=== PATIENT | male | born 1930 | race Caucasian/White ===

== ENCOUNTER 2019-08-05 11:12 | Inpatient (IN) | payer MEDICARE, OTHER ==
[~2019-08-05] VITALS: Ht 193 cm; Wt 113.1 kg
[~2019-08-05 11:12] MED LIST: PRAVASTATIN SOD20 MG PO; Z.0.AMLODIPINE BESY1 PO; Z.0.GLIPIZIDE XL10 M PO; Z.1.LISINOPRIL-HCT1 PO; Z.1.METFORMIN HCL100 PO; Z.3.CENTRUM SILVER1 PO
[2019-08-05 11:58] VITALS: BP 142/86
[2019-08-05 12:00] VITALS: BP 142/86
[2019-08-05 12:06] VITALS: BP 142/84
[2019-08-05] MEDS ORDERED: FINASTERIDE5 MG PO (12:28)
[2019-08-05] MEDS ORDERED: CARVEDILOL3.125 MG PO (12:28)
[2019-08-05] MEDS ORDERED: FUROSEMIDE40 MG PO (12:28)
[2019-08-05] MEDS ORDERED: ASPIRIN81 MG PO (12:28)
[2019-08-05] MEDS ORDERED: FLOMAX0.4 MG PO (12:28)
[2019-08-05] MEDS ORDERED: PIOGLITAZONE HC45 MG PO (12:28)
[2019-08-05] MEDS ORDERED: KLOR-CON 1010 MEQ (12:28)
[2019-08-05 12:53] LABS: BASOPHILS % 0.4 % (0.0-1.0); EOSINOPHILS # (AUTO) 0.2 (0.0-0.4); EOSINOPHILS % 2.3 % (0.0-6.0); HEMOGLOBIN 15.6 g/dL (14.0-18.0); LYMPHOCYTES # (AUTO) 1.6 (1.0-3.2); LYMPHOCYTES % 19.2 % (18.0-39.1); MEAN CORPUSCULAR HEMOGLOBIN 31.3 pg (28-32); MEAN CORPUSCULAR HGB CONC 33.9 g/dL (31-35); MEAN CORPUSCULAR VOLUME 92.2 fL (81-99); MONOCYTES # (AUTO) 0.9 (0.2-0.8); MONOCYTES % 11.3 % (4.4-11.3); NEUTROPHILS # (AUTO) 5.5 (2.1-6.9); NEUTROPHILS % 66.3 % (38.7-80.0); PLATELET COUNT 223 x10e3/uL (140-360); RED BLOOD COUNT 4.99 x10e6/uL (4.3-5.7); RED CELL DISTRIBUTION WIDTH 13.4 % (11.7-14.4)
[2019-08-05 13:16] LABS: ALANINE AMINOTRANSFERASE 15 IU/L (0-55); ALBUMIN 3.3 g/dL (3.5-5.0); ALBUMIN/GLOBULIN RATIO 1.3 (0.8-2.0); ALKALINE PHOSPHATASE 83 IU/L (40-150); ANION GAP 15.1 mmol/L (8-16); BLOOD UREA NITROGEN 23 mg/dL (7-26); BUN/CREATININE RATIO 22 (6-25); CALCIUM 9.5 mg/dL (8.4-10.2); CARBON DIOXIDE 27 mmol/L (22-29); CHLORIDE 101 mmol/L (98-107); CREATININE, SERUM 1.05 mg/dL (0.72-1.25); EST GLOMERULAR FILTRATION RATE > 60 ML/MIN (60-); GLUCOSE 122 mg/dL (74-118); POTASSIUM 4.1 mmol/L (3.5-5.1); SODIUM 139 mmol/L (136-145)
[2019-08-05 16:07] VITALS: BP 122/57
[2019-08-05] MEDS ORDERED: HYDRALAZINE HCL 20 MG/ML VIAL IV PRN (16:15)
[2019-08-05] MEDS ORDERED: POLYETHYLENE GLYCOL 3350 17 GM PACK PO PRN (16:15)
[2019-08-05] MEDS ORDERED: DEXTROSE 50% SYRINGE 50 ML IV PRN (16:30)
[2019-08-05] MEDS ORDERED: CARVEDILOL 3.125 MG TAB PO SCH (17:00)
--- NOTE | 2019-08-05 17:07 | Diagnostic Imaging Report ---
EXAMINATION: CHEST 2 VIEWS INDICATION: Shortness of breath COMPARISON: Chest radiograph of 09/06/2009 FINDINGS: LINES/TUBES:Left chest pacemaker with leads terminating in the right atrium and right ventricle. EKG leads overlie the chest. LUNGS:The lungs are mildly hyperinflated. Patchy opacity at the right lung base. PLEURA:Moderate layering right pleural effusion. No pneumothorax. MEDIASTINUM:Cardiomegaly, increased since 2008. Atherosclerotic calcifications of the thoracic aorta. BONES/SOFT TISSUES:No acute osseous injury. Degenerative changes of the visualized spine. ABDOMEN:No free air under the diaphragm. IMPRESSION: Moderate layering right pleural effusion. Patchy opacity at the right lung base likely represents associated subsegmental atelectasis. Cardiomegaly, increased from 2008. Signed by: Barrera Carey MD on 08/05/2019 5:04 PM
[2019-08-05] MEDS: FAMOTIDINE 20 MG TAB PO SCH (17:10)
[2019-08-05] MEDS: METFORMIN HCL 500 MG TAB PO SCH (17:10)
[2019-08-05] MEDS: GLIPIZIDE 5 MG TAB PO SCH (17:10)
[2019-08-05] MEDS: INSULIN REGULAR, HUMAN 100 UNIT/1 ML 3ML VIAL SQ SCH ×2 (17:10→20:26)
[2019-08-05] MEDS: CARVEDILOL 3.125 MG TAB PO SCH (17:10)
[2019-08-05] MEDS: DOCUSATE SODIUM 100 MG CAP PO SCH (17:10)
[2019-08-05] MEDS ORDERED: ACETAMINOPHEN 325 MG TAB PO PRN (17:30)
--- NOTE | 2019-08-05 18:08 | Consultation ---
DATE OF CONSULTATION: Cardiology Consultation CHIEF COMPLAINT: The patient is an 88-year-old with shortness of breath. HISTORY OF PRESENT ILLNESS: The patient is an 88-year-old with known congestive heart failure, came to the office with worsening dyspnea and fluid overload. The patient has had no chest pain. Arrangements were made for the patient to be admitted for diuresis. PAST MEDICAL HISTORY: Significant for: 1. Dual chamber permanent pacemaker placement for sick sinus syndrome. 2. Known history of atrial fibrillation intermittently. 3. Ejection fraction of 25% on the echocardiogram. 4. Lexiscan nuclear stress test demonstrating an ejection fraction of 20% with fixed defects. MEDICATIONS: At home include glipizide, metformin, pravastatin, carvedilol, amlodipine, lisinopril, and furosemide. SOCIAL HISTORY: The patient does not drink and does not smoke. FAMILY HISTORY: There is a known family history of heart disease and hypertension. PHYSICAL EXAMINATION: GENERAL: The patient is an older male, in no obvious distress. VITAL SIGNS: Included a temperature of 98.8, blood pressure of 140/70, and pulse is 76. HEAD, EARS, EYES, NOSE, AND THROAT: The patient's cranium was normocephalic and atraumatic. Extraocular muscles were intact. Sclerae were anicteric. Pupils were equal, round, and reactive to light. There is no pallor or cyanosis of the oral mucosa. There is no erythema or edema of the throat. NECK: Supple. No jugular venous distention. CHEST: Demonstrated rales bilaterally. CARDIAC: Demonstrated normal S1 and S2 with a short 2/6 systolic murmur. ABDOMEN: Demonstrated good bowel sounds. No tenderness and no masses. EXTREMITIES: There was 2 to 3+ edema bilaterally. NEUROLOGIC: The patient was alert and oriented x3. Cranial nerves II through XII were intact. DIAGNOSTIC DATA: The patient's EKG demonstrated ventricular pacing. IMPRESSION: The patient is an 88-year-old with uibso-jb-uatnrdd systolic heart failure. RECOMMENDATIONS: As follows: 1. The patient will need to be diuresed with IV Lasix. 2. The patient will be continued on ALVARO inhibitors and beta blockers. 3. Repeat echocardiogram has been ordered. 4. An EP consult has been requested to upgrade the patient's dual-chamber pacemaker to a defibrillator. MD BRIAN Smyth/ТАТЬЯНА /[id number] cc: Ramón Boles MD
[2019-08-05 19:00] VITALS: BP 158/72
[2019-08-05 20:00] VITALS: BP 158/72
[2019-08-05] MEDS: FUROSEMIDE INJ 10 MG/ML 4 ML VIAL IV SCH (20:25)
[2019-08-05] MEDS: PRAVASTATIN 20 MG TAB PO SCH (20:26)
[2019-08-05] MEDS ORDERED: PIOGLITAZONE HCL 15 MG TAB PO SCH (21:00)
[2019-08-05] MEDS ORDERED: PIOGLITAZONE HCL 45 MG TAB PO SCH (21:00)
--- NOTE | 2019-08-05 21:45 | NUR ---
PATIENT REFUSED CPAP AT THIS TIME. CONNECTED TO 4 LITERS OXYGEN VIA NASAL CANULA, SPO2 MAINTAINED 97%. WILL CONTINUE TO MONITOR.
[2019-08-06] VITALS (7 sets, daily range): BP systolic 119–150; BP diastolic 58–67
[2019-08-06 05:48] LABS: BASOPHILS % 0.3 % (0.0-1.0); EOSINOPHILS # (AUTO) 0.2 (0.0-0.4); EOSINOPHILS % 3.4 % (0.0-6.0); HEMATOCRIT 41.7 % (38.2-49.6); HEMOGLOBIN 13.8 g/dL (14.0-18.0); LYMPHOCYTES # (AUTO) 1.4 (1.0-3.2); LYMPHOCYTES % 20.2 % (18.0-39.1); MEAN CORPUSCULAR HEMOGLOBIN 30.5 pg (28-32); MEAN CORPUSCULAR HGB CONC 33.1 g/dL (31-35); MEAN CORPUSCULAR VOLUME 92.3 fL (81-99); MONOCYTES # (AUTO) 0.7 (0.2-0.8); MONOCYTES % 10.7 % (4.4-11.3); NEUTROPHILS # (AUTO) 4.5 (2.1-6.9); NEUTROPHILS % 65.1 % (38.7-80.0); PLATELET COUNT 184 x10e3/uL (140-360); RED BLOOD COUNT 4.52 x10e6/uL (4.3-5.7); RED CELL DISTRIBUTION WIDTH 13.2 % (11.7-14.4)
[2019-08-06 06:06] LABS: ANION GAP 12.7 mmol/L (8-16); BLOOD UREA NITROGEN 23 mg/dL (7-26); BUN/CREATININE RATIO 23 (6-25); CALCIUM 8.7 mg/dL (8.4-10.2); CARBON DIOXIDE 29 mmol/L (22-29); CHLORIDE 101 mmol/L (98-107); CHOL/HDL RATIO 3.7 (3.9-4.7); CHOLESTEROL 121 MD/DL (0-199); CREATININE, SERUM 0.98 mg/dL (0.72-1.25); EST GLOMERULAR FILTRATION RATE > 60 ML/MIN (60-); GLUCOSE 133 mg/dL (74-118); HDL CHOLESTEROL 33 MG/DL (40-60); LDL CHOLESTEROL 76 MG/DL (60-130); MAGNESIUM 1.8 MG/DL (1.3-2.1); PHOSPHORUS 3.7 MG/DL (2.3-4.7); POTASSIUM 3.7 mmol/L (3.5-5.1); SODIUM 139 mmol/L (136-145); TRIGLYCERIDES 61 MG/DL (0-149)
[2019-08-06 06:17] LABS: B-TYPE NATRIURETIC PEPTIDE2 859.6 pg/mL (0-100)
--- NOTE | 2019-08-06 07:01 | NUR ---
Report given to oncoming nurse Vandana, walking round done.
[2019-08-06] MEDS: FAMOTIDINE 20 MG TAB PO SCH ×2 (08:00→16:40)
[2019-08-06] MEDS: CARVEDILOL 3.125 MG TAB PO SCH ×2 (08:00→16:40)
[2019-08-06] MEDS: AMLODIPINE BESYLATE 10 MG TAB PO SCH (08:00)
[2019-08-06] MEDS: MULTIVITAMINS/MINERALS TAB PO SCH (08:00)
[2019-08-06] MEDS: DOCUSATE SODIUM 100 MG CAP PO SCH ×2 (08:00→16:40)
[2019-08-06] MEDS: LISINOPRIL 20 MG TAB PO SCH (08:00)
[2019-08-06] MEDS: HYDROCHLOROTHIAZIDE 25 MG TAB PO SCH (08:00)
[2019-08-06] MEDS: TAMSULOSIN HCL 0.4 MG CAP PO SCH (08:00)
[2019-08-06] MEDS: METFORMIN HCL 500 MG TAB PO SCH ×2 (08:00→16:40)
[2019-08-06] MEDS: GLIPIZIDE 5 MG TAB PO SCH ×2 (08:00→16:40)
[2019-08-06] MEDS: INSULIN REGULAR, HUMAN 100 UNIT/1 ML 3ML VIAL SQ SCH ×4 (08:00→21:00)
[2019-08-06] MEDS: FINASTERIDE 5 MG TAB PO SCH (08:00)
[2019-08-06] MEDS: ASPIRIN 81 MG CHEW TAB PO SCH (08:00)
[2019-08-06] MEDS: FUROSEMIDE INJ 10 MG/ML 4 ML VIAL IV SCH ×2 (08:30→21:14)
[2019-08-06] MEDS ORDERED: POTASSIUM CHLORIDE 10MEQ EA PO SCH ×2 (09:00)
[2019-08-06] MEDS ORDERED: FUROSEMIDE 40 MG TAB PO SCH (09:00)
--- NOTE | 2019-08-06 14:42 | NUR ---
Nutrition Screen Note RD Recommendation for Physician: - Continue diet as ordered Plan of Care: RD following, monitoring for tolerance and adequacy, diet education Nutrition reason for involvement: Diagnosis Primary Diagnose(s): CHF PMH: CHF, DM Ht: 76in Wt: 270lb BMI: 32.9kg/m2 IBW: 202lb +/- 10% RD Assessment: (08/06) Chart reviewed. Labs and meds reviewed. 88yo M, who was admitted for CHF. Visited pt in the room per diagnosis. Pt reported good appetite with 100% observed lunch intake. No GI complains reported. Weight has been stable. Pt denied any chewing or swallowing difficulty. RD provided diet education regarding to low sodium diet. All questions have been answered. Current Diet: cardiac/ ADA diet Malnutrition Evaluation (08/06/2019) The patient does not meet criteria for a specified degree of malnutrition at this time. Will re-evaluate at follow-up as appropriate. Diet Education Needs Assessment: Diet education indicated, pt and family were agreeable. Learner(s): pt and Time spent: 25minutes Barriers: No barriers identified. Cultural/Language Modifications: No cultural/language modifications noted. Pt and speak Mozambican. Readiness: Acceptance Method: Handout, explanation Topics: Heart failure nutrition therapy (low sodium diet) Understanding/Compliance: Expect fairunderstanding/compliance from pt. Will benefit from reinforcement. Nutrition Care Level: low Signed: Anisha Cates, MS, RD, LD
[2019-08-06] MEDS: POTASSIUM CHLORIDE 20 MEQ TAB CR PO SCH (16:40)
--- NOTE | 2019-08-06 18:50 | NUR ---
walking rounds done at this time, patient aware of change and in no distress. call peres within reach and bed in lowest position.
[2019-08-06] MEDS: PRAVASTATIN 20 MG TAB PO SCH (21:14)
[2019-08-07] VITALS: BP 103/48
[2019-08-07 04:00] VITALS: BP 122/59
[2019-08-07 04:21] LABS: BASOPHILS % 0.2 % (0.0-1.0); EOSINOPHILS # (AUTO) 0.2 (0.0-0.4); EOSINOPHILS % 2.7 % (0.0-6.0); HEMATOCRIT 43.2 % (38.2-49.6); HEMOGLOBIN 14.7 g/dL (14.0-18.0); LYMPHOCYTES # (AUTO) 1.8 (1.0-3.2); LYMPHOCYTES % 21.4 % (18.0-39.1); MEAN CORPUSCULAR VOLUME 91.1 fL (81-99); MONOCYTES % 12.1 % (4.4-11.3); NEUTROPHILS # (AUTO) 5.4 (2.1-6.9); NEUTROPHILS % 63.3 % (38.7-80.0); PLATELET COUNT 199 x10e3/uL (140-360); RED BLOOD COUNT 4.74 x10e6/uL (4.3-5.7); RED CELL DISTRIBUTION WIDTH 13.2 % (11.7-14.4)
[2019-08-07 04:38] LABS: ANION GAP 11.5 mmol/L (8-16); CREATININE, SERUM 1.18 mg/dL (0.72-1.25); POTASSIUM 3.5 mmol/L (3.5-5.1)
--- NOTE | 2019-08-07 07:18 | NUR ---
REPORT GIVEN TO ONCOMING NURSE, WALKING ROUND DONE.
[2019-08-07] MEDS: FAMOTIDINE 20 MG TAB PO SCH ×2 (07:30→17:58)
[2019-08-07] MEDS: INSULIN REGULAR, HUMAN 100 UNIT/1 ML 3ML VIAL SQ SCH ×4 (07:30→21:59)
[2019-08-07 07:59] VITALS: BP 129/59
[2019-08-07] MEDS: CARVEDILOL 3.125 MG TAB PO SCH ×2 (08:00→17:58)
[2019-08-07] MEDS: GLIPIZIDE 5 MG TAB PO SCH ×2 (08:00→17:58)
[2019-08-07] MEDS: METFORMIN HCL 500 MG TAB PO SCH ×2 (08:00→17:58)
[2019-08-07] MEDS: DOCUSATE SODIUM 100 MG CAP PO SCH ×2 (08:08→17:58)
[2019-08-07] MEDS: LISINOPRIL 20 MG TAB PO SCH (08:08)
[2019-08-07] MEDS: ASPIRIN 81 MG CHEW TAB PO SCH (08:08)
[2019-08-07] MEDS: FINASTERIDE 5 MG TAB PO SCH (08:08)
[2019-08-07] MEDS: POTASSIUM CHLORIDE 20 MEQ TAB CR PO SCH ×2 (08:09→17:58)
[2019-08-07] MEDS: TAMSULOSIN HCL 0.4 MG CAP PO SCH (08:09)
[2019-08-07] MEDS: AMLODIPINE BESYLATE 10 MG TAB PO SCH (08:09)
[2019-08-07] MEDS: HYDROCHLOROTHIAZIDE 25 MG TAB PO SCH (08:09)
[2019-08-07] MEDS: MULTIVITAMINS/MINERALS TAB PO SCH (08:09)
[2019-08-07] MEDS: FUROSEMIDE INJ 10 MG/ML 4 ML VIAL IV SCH ×2 (08:45→21:58)
--- NOTE | 2019-08-07 11:56 | NUR ---
EDUCATED ABOUT IMM, SIGNED, FILED IN CHART, WITH COPY LEFT WITH FAMILY AT BEDSIDE.
[2019-08-07 12:13] VITALS: BP 128/62
[2019-08-07] MEDS ORDERED: FENTANYL CITRATE/PF 100MCG/2 ML INJ ONE (14:08)
[2019-08-07] MEDS ORDERED: MIDAZOLAM HCL 2 MG/2 ML VIAL ONE (14:08)
[2019-08-07] MEDS ORDERED: HEPARIN SOD/SOD CHLORIDE 0 ML ONE (14:09)
[2019-08-07] MEDS ORDERED: SODIUM CHLORIDE 0.9% 1000ML 2,000 ML ONE (14:09)
[2019-08-07] MEDS ORDERED: VANCOMYCIN 1GM/NS 250 ML 250 ML ONE (14:09)
[2019-08-07] MEDS ORDERED: BACITRACIN 50,000 UNIT VIAL ONE (14:09)
[2019-08-07] MEDS ORDERED: LIDOCAINE HCL 2% LOCAL 20 ML VIAL ONE (14:09)
[2019-08-07] MEDS ORDERED: SODIUM CHLORIDE 0.9% 500ML 500 ML ONE (14:10)
[2019-08-07] MEDS ORDERED: IOPAMIDOL 300MG/ML 100 ML INFUS..BTL IV ONE (15:05)
[2019-08-07 15:53] VITALS: BP 128/62
--- NOTE | 2019-08-07 16:06 | NUR ---
Pt arrived via bed with assistance x2. A&O x3, resp WNL. No c/o pain. Pressure dressing applied to L upper chest wall, L arm in sling properly placed, radial pulse strong palpated on L wrist. IV fluids and IV ABT being administered at this time. Call light within reach, bed in lowest position.
[2019-08-07] MEDS ORDERED: VANCOMYCIN 1GM/NS 250 ML 250 ML IV SCH (17:00)
[2019-08-07] MEDS ORDERED: ACETAMINOPHEN/CODEINE 300MG - 30MG TAB PO PRN (17:00)
--- NOTE | 2019-08-07 17:43 | Diagnostic Imaging Report ---
Exam: Chest one view Comparison: August 05, 2019 Clinical history: ICD insertion X Findings: There is interval insertion of a left subclavian ICD in its expected location. A left-sided chest tube has also been inserted. Mild to moderate right subpulmonic pleural effusion with associated atelectasis is again noted. There is no evidence of pneumothorax. Cardiomegaly is again visualized. The regional osseous structures are unremarkable. Signed by: Dr. Fernando Venegas MD on 08/07/2019 5:40 PM
--- NOTE | 2019-08-07 19:00 | NUR ---
received report from day nurse. patient is resting comfortably in bed. bed is in lowest position and call peres is within reach. will continue to monitor patient.
--- NOTE | 2019-08-07 19:15 | Consultation ---
DATE OF CONSULTATION: 08/07/2019 Consult Note REASON FOR CONSULT: Congestive heart failure, consider upgrade. 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 He has history of complete heart block, dual-chamber pacemaker in place, normal functioning, pacemaker dependent; cardiomyopathy, worsened by right ventricular pacing and the patient was admitted with congestive heart failure, currently feeling better after diuresis. REVIEW OF SYSTEMS: CONSTITUTIONAL: Negative. CARDIOVASCULAR: As per HPI. GASTROINTESTINAL: Negative. GENITOURINARY: Negative. MUSCULOSKELETAL: Negative. EYES: Negative. ENT: Negative. ALLERGIC/IMMUNOLOGIC: Negative. PSYCHIATRIC: Negative. PAST MEDICAL HISTORY: Cardiomyopathy. PAST SURGICAL HISTORY: Pacemaker. FAMILY HISTORY: No premature coronary artery disease. SOCIAL HISTORY: Denies alcohol or smoking. PHYSICAL EXAMINATION: VITAL SIGNS: Blood pressure of 140/60, pulse 70, respirations 20, O2 saturations of 98%. GENERAL: No acute distress. HEENT: Moist mucous membranes. CARDIOVASCULAR: Regular. RESPIRATORY: Clear. ABDOMEN: Soft, nontender. MUSCULOSKELETAL: 2+ without pulses. NEUROLOGIC: No focal deficits. SKIN: No lesions. PSYCHIATRY: Normal thought process. EKG, sinus, right ventricular pacing. IMPRESSION: 1. Chronic non-ischemic dilated cardiomyopathy, ejection fraction of 20%. 2. Cardiomyopathy, worsened by right ventricular pacing. 3. Right ventricular pacing greater than 95%, pacer dependent. 4. Complete heart block. 5. Congestive heart failure class 3. 6. Dual-chamber pacemaker in place. RECOMMENDATIONS: I went over details with the patient. Indications, benefits, and risks discussed with the patient in detail. The patient voiced understanding and wishes to proceed. Plan for upgrade to biventricular cardiac defibrillator. Thank you for letting us participate in Mr. Martinez's healthcare. MD TYSON Santizo/MODL /[id number]
[2019-08-07 20:00] VITALS: BP 138/62
[2019-08-07] MEDS: PRAVASTATIN 20 MG TAB PO SCH (21:58)
[2019-08-08] VITALS: BP 123/60
--- NOTE | 2019-08-08 01:31 | Operative Report ---
DATE OF PROCEDURE: 08/07/2019 SURGEON: Rivas Tariq MD PREPROCEDURE DIAGNOSES: 1. Congestive heart failure, class 3. 2. Chronic nonischemic dilated cardiomyopathy, ejection fraction of 20%. 3. Right ventricular pacing, worsening cardiomyopathy, pacemaker dependent. 4. Normal functioning dual-chamber pacemaker. POSTPROCEDURE DIAGNOSES: 1. Congestive heart failure, class 3. 2. Chronic nonischemic dilated cardiomyopathy, ejection fraction of 20%. 3. Right ventricular pacing, worsening cardiomyopathy, pacemaker dependent. 4. Normal functioning dual-chamber pacemaker. ESTIMATED BLOOD LOSS: 5 mL. COMPLICATIONS: None. PROCEDURES PERFORMED: 1. Upgrade to biventricular cardiac defibrillator. 2. Moderate sedation. Moderate conscious sedation was provided under my direct supervision by a sedation trained nurse. Sedation approximate time 25 minutes, Versed and fentanyl. There were no complications. See sedation form for details. DESCRIPTION OF PROCEDURE: After informed consent was obtained, the patient was brought to the electrophysiology laboratory in a fasting nonsedated state. Area over his chest was prepped and draped in the usual sterile fashion. Moderate sedation and prophylactic antibiotic were given. 1% lidocaine was used as local anesthetic and a 3 cm skin incision was made in the left subclavicular area. Electrocautery, sharp and blunt dissection were used to bridge the muscular fascia and a pocket was created for implantation of the device. Vascular access was obtained x2 in the left axillary vein using a modified Seldinger technique under fluoroscopic guidance. The 9-Korean and 9.5-Korean sheaths were placed. Ventricular lead advanced to the RV apex. R-waves were paced from the pacemaker. Impedance 500 with good current of injury, coronary sinus was cannulated using AL2 catheter and Wholey wire. Coronary sinus angiogram demonstrated a posterolateral branch, successfully cannulated there. The patient's threshold 1.7 at 0.4. Sheaths were removed from the body. Leads were secured through fascia using Ethibond. Pocket was irrigated with antibiotic solution using the pulse research director. Hemostasis was meticulous. Leads were connected to the new device including the old right atrial lead and the new device placed in the system. Of note, the old right ventricular paced sense lead was capped and kept in the pocket. Incision was closed using absorbable sutures and Dermabond. The patient tolerated the procedure well. Procedure was then complete. SUMMARY OF HARDWARE IMPLANT: The new defibrillator is [employer], serial #[id number]. The new left ventricular lead is [employer] #[id number]. The old right atrial lead is [employer]. IMPRESSION: Successful upgrade to biventricular cardiac defibrillator via left axillary vein. PLAN: 1. Routine postoperative monitoring on telemetry bed. 2. Chest x-ray. 3. Follow up in 2 weeks. MD TYSON Santizo/MODL /[id number]
[2019-08-08 03:22] LABS: BASOPHILS % 0.2 % (0.0-1.0); EOSINOPHILS # (AUTO) 0.2 (0.0-0.4); EOSINOPHILS % 1.6 % (0.0-6.0); HEMATOCRIT 44.3 % (38.2-49.6); HEMOGLOBIN 15.1 g/dL (14.0-18.0); LYMPHOCYTES # (AUTO) 1.3 (1.0-3.2); LYMPHOCYTES % 10.5 % (18.0-39.1); MEAN CORPUSCULAR HEMOGLOBIN 31.1 pg (28-32); MEAN CORPUSCULAR HGB CONC 34.1 g/dL (31-35); MEAN CORPUSCULAR VOLUME 91.3 fL (81-99); MONOCYTES # (AUTO) 1.6 (0.2-0.8); MONOCYTES % 13.2 % (4.4-11.3); NEUTROPHILS % 74.2 % (38.7-80.0); PLATELET COUNT 179 x10e3/uL (140-360); RED BLOOD COUNT 4.85 x10e6/uL (4.3-5.7); RED CELL DISTRIBUTION WIDTH 13.3 % (11.7-14.4)
[2019-08-08 03:40] LABS: ANION GAP 16.5 mmol/L (8-16); BLOOD UREA NITROGEN 32 mg/dL (7-26); BUN/CREATININE RATIO 28 (6-25); CALCIUM 9.1 mg/dL (8.4-10.2); CARBON DIOXIDE 28 mmol/L (22-29); CHLORIDE 99 mmol/L (98-107); CREATININE, SERUM 1.14 mg/dL (0.72-1.25); EST GLOMERULAR FILTRATION RATE > 60 ML/MIN (60-); GLUCOSE 73 mg/dL (74-118); POTASSIUM 3.5 mmol/L (3.5-5.1); SODIUM 140 mmol/L (136-145)
[2019-08-08 04:00] VITALS: BP 129/60
[2019-08-08 04:09] LABS: LYMPHOCYTES % (MANUAL) 10 % (19-48); MONOCYTES % (MANUAL) 16 % (3.4-9.0); NEUTROPHILS % (MANUAL) 74 % (40-74); PLATELET ESTIMATE ADEQUATE; PLATELET MORPHOLOGY COMMENT NORMAL; RBC MORPHOLOGY COMMENT NORMAL
--- NOTE | 2019-08-08 06:49 | NUR ---
report given to day nurse. patient is resting comfortably in bed. bed is in lowest position and call light is within reach.
[2019-08-08] MEDS: INSULIN REGULAR, HUMAN 100 UNIT/1 ML 3ML VIAL SQ SCH (07:30)
[2019-08-08 07:57] VITALS: BP 135/61
[2019-08-08] MEDS ORDERED: MINOCYCLINE HCL50 MG PO (08:14)
[2019-08-08] MEDS ORDERED: VANCOMYCIN 1GM/NS 250 ML 250 ML IV SCH (09:00)
[2019-08-08] MEDS: FAMOTIDINE 20 MG TAB PO SCH (09:41)
[2019-08-08] MEDS: FUROSEMIDE INJ 10 MG/ML 4 ML VIAL IV SCH (09:42)
[2019-08-08] MEDS: HYDROCHLOROTHIAZIDE 25 MG TAB PO SCH (09:42)
[2019-08-08] MEDS: AMLODIPINE BESYLATE 10 MG TAB PO SCH (09:42)
[2019-08-08] MEDS: CARVEDILOL 3.125 MG TAB PO SCH (09:42)
[2019-08-08] MEDS: METFORMIN HCL 500 MG TAB PO SCH (09:42)
[2019-08-08] MEDS: POTASSIUM CHLORIDE 20 MEQ TAB CR PO SCH (09:42)
[2019-08-08] MEDS: ASPIRIN 81 MG CHEW TAB PO SCH (09:42)
[2019-08-08] MEDS: DOCUSATE SODIUM 100 MG CAP PO SCH (09:42)
[2019-08-08] MEDS: MULTIVITAMINS/MINERALS TAB PO SCH (09:42)
[2019-08-08] MEDS: TAMSULOSIN HCL 0.4 MG CAP PO SCH (09:42)
[2019-08-08] MEDS: LISINOPRIL 20 MG TAB PO SCH (09:42)
[2019-08-08] MEDS: GLIPIZIDE 5 MG TAB PO SCH (09:42)
[2019-08-08] MEDS: FINASTERIDE 5 MG TAB PO SCH (09:43)
[2019-08-08 12:01] VITALS: BP 133/64
[2019-08-09 04:00] VITALS: BP 120/62
--- NOTE | 2019-08-09 05:27 | Discharge Summary ---
ADMISSION DIAGNOSES: Miwqy-nd-qtcephx systolic congestive heart failure, hypertension complicated by chronic systolic congestive heart failure, type 2 diabetes, permanent pacemaker in situ, and obstructive sleep apnea with CPAP use at home. DISCHARGE DIAGNOSES: Nbmte-zz-jtwljyt systolic congestive heart failure, hypertension complicated by chronic systolic congestive heart failure, type 2 diabetes, permanent pacemaker in situ, and obstructive sleep apnea with CPAP use at home, status post biventricular cardiac defibrillator placement. HISTORY: The patient hasa history of hypertension, diabetes, atrial fibrillation, chronic systolic CHF with a history of 20% EF, obstructive sleep apnea with CPAP use. SURGICAL HISTORY: Dual-chamber pacemaker placement with removal of biventricular defibrillator placement. FAMILY HISTORY: The patient's mom, dad, brother, and sister all have cancer. SOCIAL HISTORY: The patient has a history of smoking, which he quit at age 22. HOSPITAL COURSE: 88-year-old male, who has been having progressive shortness of breath, the past 3 to 4 weeks and is known to have underlying systolic CHF. He denies other signs and symptoms on admission. Cardiology and Electrophysiology were consulted. The patient's BNP was 859. He was started on IV Lasix. His chest x-ray showed moderate layering right pleural effusion. The patient had an ICD placed on 08/12 with the left arm in sling. The patient was given a prescription for minocycline for 6 days per EP recommendation. He will resume all other home medicines. He will follow up with primary care and Cardiology and EP as discussed. The patient and understand discharge instructions and agreed to plan. Vital signs are stable, the patient is afebrile. Dictated by Gabriela Lomeli NP MD BRUON Rob/MODL /[id number]
== END 2019-08-08 14:32 | disposition home or self-care (01) | DRG 227 ==
LOC: IMCU 11:12 → OBSVTOIN 08-06 09:06
PROVIDERS: ADMIT Internal Medicine; ATTEND Internal Medicine
PROC: 02HL3KZ Insertion of Defibrillator Lead into Left Ventricle, Percutaneous Approach (ICD-10-PCS; principal; 2019-08-07)
PROC: 0JH609Z Insertion of Cardiac Resynchronization Defibrillator Pulse Generator into Chest Subcutaneous Tissue and Fascia, Open Approach (ICD-10-PCS; 2019-08-07)
PROC: 0JPT0PZ Removal of Cardiac Rhythm Related Device from Trunk Subcutaneous Tissue and Fascia, Open Approach (ICD-10-PCS; 2019-08-07)
DX: I11.0 Hypertensive heart disease with heart failure (principal); I44.2 Atrioventricular block, complete; I50.23 Acute on chronic systolic (congestive) heart failure; E11.9 Type 2 diabetes mellitus without complications; I48.91 Unspecified atrial fibrillation; G47.33 Obstructive sleep apnea (adult) (pediatric); Z95.0 Presence of cardiac pacemaker; Z80.8 Family history of malignant neoplasm of other organs or systems; Z82.61 Family history of arthritis; Z80.41 Family history of malignant neoplasm of ovary; Z80.1 Family history of malignant neoplasm of trachea, bronchus and lung; Z88.0 Allergy status to penicillin; Z79.84 Long term (current) use of oral hypoglycemic drugs; I43 Cardiomyopathy in diseases classified elsewhere
CPT/HCPCS: 33224; 33233; 33249; 36415; 71045; 71046; 80048; 80053; 80061; 82948; 83036; 83735; 83880; 84100; 84443; 85025; 93005; 93306; C1777; C1882; C1887; C1900; G0378; J1817; J1940; J2001; J2250; J3010; J3370; J7030; J7040; Q9967

== ENCOUNTER 2019-09-18 20:57 | Observation (INO) | payer MEDICARE, OTHER ==
--- NOTE | 2019-09-15 22:00 | NUR ---
patient is a new admit that came from [facility] ER. Patient is awake and talking. patient has a telebox on. patient has been assisted into the bed. bed is in the lowest position and call peres is within reach. will continue to monitor patients plan of care.
[~2019-09-18] VITALS: Ht 193 cm; Wt 120.2 kg
[~2019-09-18 20:57] MED LIST changes: +ASPIRIN81 MG PO; +CARVEDILOL3.125 MG PO; +FINASTERIDE5 MG PO; +FLOMAX0.4 MG PO; +FUROSEMIDE40 MG PO; +KLOR-CON 1010 MEQ; +MINOCYCLINE HCL50 MG PO; +PIOGLITAZONE HC45 MG PO
--- OUTSIDE RECORDS SUMMARY | 2019-09-18 21:13 | XMS REPORT ---
Author Author [facility] Address Unknown Phone Unavailable Care Team Providers Care Marketing Technology Specialist Name Role Phone FRANCESCO JIMENEZ Unavailable Unavailable Problems This patient has no known problems. Allergies, Adverse Reactions, Alerts This patient has no known allergies or adverse reactions. Medications This patient has no known medications. Results Test Description Test Time Test Comments Text Results Atomic Results Result Comments CHEST SINGLE (PORTABLE) 2019-08-07 17:38:00 [place] [address] Patient Name: JESSICA LANDRY MR #: [id number] : 1930 Age/Sex: 88/M Req #: [id number] [facility] Physician: FRANCESCO JIMENEZ MD Ordered by: ROSANGELA FIGUEROA MD Report #: [id number] Location: [facility] Room/Bed: [place] [address] Procedure: [id number] DX/CHEST SINGLE (PORTABLE) Exam Date: 08/07/19 Exam Time: 1700 REPORT STATUS: Signed Exam: Chest one view Comparison: August 05, 2019 Clinical history: ICD insertion X Findings: There is interval insertion of a left subclavian ICD in its expected location. A left-sided chest tube has also been inserted. Mild to moderate right subpulmonic pleural effusion with associated atelectasis is again noted. There is no evidence of pneumothorax. Cardiomegaly is again visualized. The regional osseous structures are unremarkable. Signed by: Dr. Fernando Venegas MD on 08/07/2019 5:40 PM Dictated By: AMIRA VENEGAS MD 39 Transcribed By: GURMEET on 08/07/191739 COPY TO: ROSANGELA FIGUEROA MD CHEST 2 VIEWS 2019-08-05 17:01:00 [place] [address] Patient Name: JESSICA LANDRY MR #: [id number] : 1930 Age/Sex: 88/M Req #: [id number] Adm Physician: FRANCESCO JIMENEZ MD Ordered by: FRANCESCO JIMENEZ MD Report #: [id number] Location: [facility] Room/Bed: [place] [address] Procedure: [id number] DX/CHEST 2 VIEWS Exam Date: Exam Time: REPORT STATUS: Signed EXAMINATION: CHEST 2 VIEWS INDICATION: Shortness of breath COMPARISON: Chest radiograph of 09/06/2009 FINDINGS: LINES/TUBES:Left chest pacemaker with leads terminating in the right atrium and right ventricle. EKG leads overlie the chest. LUNGS:The lungs are mildly hyperinflated. Patchy opacity at the right lung base. PLEURA:Moderate layering right pleural effusion. No pneumothorax. MEDIASTINUM:Cardiomegaly, increased since 2008. Atherosclerotic calcifications of the thoracic aorta. BONES/SOFT TISSUES:No acute osseous injury. Degenerative changes of the visualized spine. ABDOMEN:No free air under the diaphragm. IMPRESSION: Moderate layering right pleural effusion. Patchy opacity at the right lung base likely represents associated subsegmental atelectasis. Cardiomegaly, increased from 2008. Signed by: Ravi Aguiar MD on 08/05/2019 5:04 PM Dictated By: RAVI AGUIAR MD 03 Transcribed By: GURMEET on 08/05/191703 COPY TO: FRANCESCO JIMENEZ MD
[2019-09-18 21:15] VITALS: BP 197/78
[2019-09-18 22:00] VITALS: BP 197/78
--- NOTE | 2019-09-18 23:30 | NUR ---
Managed to get in touch with admitting MD regarding orders for patient. received new orders for CBC, BMP in the morning, morphine 4mg IV q 4 hours, Zofran IV q 4 hours, Vancomycin 1gm Q 12 hours. Also received new order for clonidine 0.1mg q 4 hours for elevated blood pressure. MD has given order to resume all home medications.
[2019-09-18] MEDS ORDERED: VANCOMYCIN 1GM/NS 250 ML 250 ML IV SCH (23:45)
[2019-09-18] MEDS ORDERED: CLONIDINE HCL 0.1 MG TAB PO PRN (23:45)
[2019-09-18] MEDS ORDERED: MORPHINE SULFATE INJ 4 MG/ML INJ 1ML IV PRN (23:45)
[2019-09-19] VITALS: BP 122/58
[2019-09-19 04:00] VITALS: BP 137/64
[2019-09-19 06:01] LABS: BASOPHILS % 0.5 % (0.0-1.0); EOSINOPHILS # (AUTO) 0.2 (0.0-0.4); EOSINOPHILS % 3.9 % (0.0-6.0); HEMATOCRIT 36.2 % (38.2-49.6); HEMOGLOBIN 11.8 g/dL (14.0-18.0); LYMPHOCYTES # (AUTO) 1.4 (1.0-3.2); LYMPHOCYTES % 23.5 % (18.0-39.1); MEAN CORPUSCULAR HEMOGLOBIN 30.6 pg (28-32); MEAN CORPUSCULAR HGB CONC 32.6 g/dL (31-35); MONOCYTES # (AUTO) 1.1 (0.2-0.8); MONOCYTES % 17.6 % (4.4-11.3); NEUTROPHILS # (AUTO) 3.3 (2.1-6.9); PLATELET COUNT 172 x10e3/uL (140-360); RED BLOOD COUNT 3.85 x10e6/uL (4.3-5.7); RED CELL DISTRIBUTION WIDTH 13.4 % (11.7-14.4)
[2019-09-19 06:29] LABS: BLOOD UREA NITROGEN 18 mg/dL (7-26); BUN/CREATININE RATIO 21 (6-25); CALCIUM 8.2 mg/dL (8.4-10.2); CARBON DIOXIDE 26 mmol/L (22-29); CHLORIDE 105 mmol/L (98-107); CREATININE, SERUM 0.84 mg/dL (0.72-1.25); EST GLOMERULAR FILTRATION RATE > 60 ML/MIN (60-); GLUCOSE 128 mg/dL (74-118); SODIUM 139 mmol/L (136-145)
[2019-09-19] MEDS ORDERED: ONDANSETRON HCL INJ 2MG/ML 2ML 2 MG/ML VIAL IV PRN ×2 (06:45→11:00)
--- NOTE | 2019-09-19 06:49 | NUR ---
report given to day nurse. patient is resting comfortably in bed. bed is in lowest position and call peres is within reach.
--- NOTE | 2019-09-19 07:00 | NUR ---
received am report and am rounds done. pt is alert sitting up on the side of the bed, no s/s of distress. call light within reach and instructed pt to call RN for help.
[2019-09-19] MEDS ORDERED: METFORMIN HCL 500 MG TAB PO SCH (08:00)
[2019-09-19] MEDS ORDERED: GLIPIZIDE 5 MG TAB ER PO SCH (08:00)
[2019-09-19 08:09] VITALS: BP 151/68
[2019-09-19] MEDS ORDERED: MINOCYCLINE HCL 50 MG CAP PO SCH (09:00)
[2019-09-19] MEDS ORDERED: LISINOPRIL 20 MG TAB PO SCH (09:00)
[2019-09-19] MEDS ORDERED: TAMSULOSIN HCL 0.4 MG CAP PO SCH (09:00)
[2019-09-19] MEDS ORDERED: FUROSEMIDE 40 MG TAB PO SCH (09:00)
[2019-09-19] MEDS ORDERED: PIOGLITAZONE HCL 15 MG TAB PO SCH (09:00)
[2019-09-19] MEDS ORDERED: AMLODIPINE BESYLATE 10 MG TAB PO SCH (09:00)
[2019-09-19] MEDS ORDERED: POTASSIUM CHLORIDE 20 MEQ TAB CR PO SCH (09:00)
[2019-09-19] MEDS ORDERED: ASPIRIN 81 MG CHEW TAB PO SCH (09:00)
[2019-09-19] MEDS ORDERED: FINASTERIDE 5 MG TAB PO SCH (09:00)
[2019-09-19] MEDS ORDERED: FUROSEMIDE INJ 10 MG/ML 4 ML VIAL IV SCH (09:00)
[2019-09-19] MEDS ORDERED: FUROSEMIDE INJ 80 MG in SODIUM CHLORIDE 0.9% 100 ML IV SCH ×2 (09:00→10:00)
[2019-09-19] MEDS ORDERED: HYDROCHLOROTHIAZIDE 25 MG TAB PO SCH (09:00)
[2019-09-19] MEDS ORDERED: CARVEDILOL 3.125 MG TAB PO SCH (09:00)
[2019-09-19] MEDS ORDERED: SODIUM CHLORIDE 0.9% 500ML 500 ML ONE (09:46)
--- NOTE | 2019-09-19 10:58 | Consultation ---
DATE OF CONSULTATION: Cardiology Consultation CHIEF COMPLAINT: The patient is an 88-year-old with swelling of his ICD pocket. HISTORY OF PRESENT ILLNESS: The patient has noticed continued swelling and some drainage in the ICD pocket. The ICD was placed rather about 6 weeks ago. The patient has had some mild dyspnea, but no chest pain. PAST MEDICAL HISTORY: Significant for: 1. Biventricular ICD placement six weeks ago. 2. Known history of intermittent atrial fibrillation. 3. Chronic congestive heart failure with an ejection fraction of 20%. MEDICATIONS: At home include glipizide, metformin, carvedilol, lisinopril, furosemide. SOCIAL HISTORY: The patient does not drink, does not smoke. FAMILY HISTORY: The patient lives at home with his family. PHYSICAL EXAMINATION: GENERAL: The patient is an older male, in no obvious distress. VITAL SIGNS: Include a temperature of 98.8, blood pressure 130/70, pulse 76. HEAD, EARS, EYES, NOSE, AND THROAT: The patient's cranium was normocephalic, atraumatic. Extraocular muscles were intact. Sclerae were anicteric. Pupils were equal, round, reactive to light. There is no pallor or cyanosis of the oral mucosa. There is no erythema or edema of the throat. NECK: Supple. No jugular venous distention. No carotid bruits. CHEST: Demonstrated rhonchi. CARDIAC: Demonstrated normal S1 and S2 with a short 2/6 systolic murmur. ABDOMEN: Demonstrated good bowel sounds. No tenderness and no masses. EXTREMITIES: There was about 1+ edema bilaterally. NEUROLOGIC: The patient was alert and oriented x3. Cranial nerves 2 through 12 were intact. Motor strength was intact in all limbs. IMPRESSION: The patient is an 88-year-old with swelling of the ICD pocket, which probably represents a seroma. There is possible underlying infection. RECOMMENDATIONS: 1. An EP consult will need to be obtained. 2. The patient will be started on IV antibiotics. 3. An ID consult has been ordered. MD BRIAN Smyth/ТАТЬЯНА /[id number]
[2019-09-19] MEDS ORDERED: ACETAMINOPHEN 325 MG TAB PO PRN (11:00)
[2019-09-19] MEDS ORDERED: MELATONIN 5 MG TABLET PO PRN (11:00)
[2019-09-19] MEDS ORDERED: HYDRALAZINE HCL 20 MG/ML VIAL IV PRN (11:00)
[2019-09-19 11:03] VITALS: BP 151/68
[2019-09-19 12:00] VITALS: BP 137/63
[2019-09-19] MEDS ORDERED: CEFTRIAXONE SOD 1 GM/NS 50 ML 50 ML IV SCH (12:00)
[2019-09-19] MEDS ORDERED: VANCOMYCIN 1GM/NS 250 ML 250 ML IV SCH ×2 (12:45→13:00)
[2019-09-19 16:00] VITALS: BP 149/60
--- NOTE | 2019-09-19 16:49 | NUR ---
gave report to Nicole Brown RN at [facility]. [phone]
--- NOTE | 2019-09-19 19:16 | Consultation ---
DATE OF CONSULTATION: CONTINUATION: PAST MEDICAL HISTORY: As mentioned above; congestive heart failure, atrial fibrillation, chronic kidney disease, diabetes mellitus with neuropathy. PAST SURGICAL HISTORY: As above. ALLERGIES: NKDA. SOCIAL HISTORY: There is no smoking, drug abuse, or alcohol abuse. FAMILY HISTORY: Hypertension and diabetes. REVIEW OF SYSTEMS: At the present time: HEENT: Negative. PULMONARY: Negative. CARDIAC: Negative. He is just weak. GI: Negative. : Negative. Otherwise unremarkable. LABORATORY DATA: White count 6.12, hemoglobin 11.8, sodium 139, potassium 4.0, his creatinine is 0.84. MEDICATIONS: He is currently on Rocephin, Actos, lisinopril, Norvasc, Coreg, Glucophage, Tylenol, and vancomycin. PHYSICAL EXAMINATION: GENERAL: He is currently alert, oriented, does not seem in acute distress. VITAL SIGNS: Stable, currently afebrile. HEENT: Normocephalic, not icteric. NECK: Supple. No JVD. No carotid bruits. No thyromegaly. He did have swelling and redness noted at the pacemaker site with yellow crust. ABDOMEN: Soft. Bowel sounds present. No tenderness. No hepatosplenomegaly. EXTREMITIES: No edema. SKIN: No rash. IMPRESSION: 1. Infected pacemaker. 2. Diabetes mellitus. 3. History of congestive heart failure. RECOMMENDATION: We will put the patient on vancomycin 1 g q.12 h. and Rocephin 2 g q.24 h. removal of pacemaker, if we can do without pacemaker for a week or two till the infection resolved. Obtain wound cultures. Obtain blood cultures. We will follow vancomycin trough. We will follow weekly CBC, weekly Chem panel. Discussed with the family, answered all questions. Discussed with the patient. We will follow. MD CELINA Barajas/ТАТЬЯНА /[id number]
[2019-09-19] MEDS ORDERED: PRAVASTATIN 20 MG TAB PO SCH (21:00)
--- NOTE | 2019-09-20 02:47 | Discharge Summary ---
ADMISSION DIAGNOSES: ICD pocket infection, chronic systolic congestive heart failure, type 2 diabetes, hypertension with chronic systolic congestive heart failure, obesity with a body mass index of 32.3, benign prostatic hyperplasia. DISCHARGE DIAGNOSES: ICD pocket infection, chronic systolic congestive heart failure, type 2 diabetes, hypertension with chronic systolic congestive heart failure, obesity with a body mass index of 32.3, benign prostatic hyperplasia. HISTORY: Hypertension, type 2 diabetes, chronic systolic CHF, SERENITY with CPAP use, right eye blind. SURGICAL HISTORY: Dual chamber pacemaker placement with removal of biventricular defibrillator. FAMILY HISTORY: The patient's mom, dad, brother, and sister have cancer. SOCIAL HISTORY: History of tobacco use, but the patient quit when he was 22 years old. HOSPITAL COURSE: An 88-year-old male had an ICD placed on August 12, 2019, and was sent home with 6 days of minocycline per EP recommendation. He began noticing swelling and draining of his ICD the day prior to admission. He denies fever. On admission, the patient was started on vancomycin and Rocephin. ID, Cardiology, and EP were consulted. Wound culture was ordered, but after EP saw the patient, they decided it was safest to transfer to the [facility] for lead extraction as they did not feel they could safely be done at the patient[facility]. So, the patient was transferred per EP request. Cardiology agrees with the plan. The patient and understand discharge instructions and agrees to plan. He will discontinue with the same inpatient antibiotics including vanc and Rocephin. He will admit under Dr. Adwoa Arvizu, who is covering for . Vital signs stable. The patient afebrile. Dictated by Gabriela Lomeli NP MD BRUNO Rob/ТАТЬЯНА /[id number]
--- NOTE | 2019-09-20 06:14 | Diagnostic Imaging Report ---
EXAMINATION: CHEST 2 VIEWS INDICATION: Check for old pacemaker leads COMPARISON: [Chest radiograph 08/07/2019] FINDINGS: PA and lateral views TUBES and LINES: Left chest wall cardiac device with 4 pacemaker leads, leads terminate in the right atrium and right ventricle and coronary sinus. LUNGS: Lungs are well inflated. No consolidations. Pulmonary vascular congestion. PLEURA: Small right pleural effusion or pneumothorax. HEART AND MEDIASTINUM: Mild cardiomegaly. BONES AND SOFT TISSUES: No acute osseous lesion. Soft tissues are unremarkable. Degenerative changes in the spine. UPPER ABDOMEN: No free air under the diaphragm. IMPRESSION: Mild cardiomegaly, pulmonary vascular congestion, and small right pleural effusion. Left chest wall cardiac device with 4 pacemaker leads, leads terminate in the right atrium and right ventricle and coronary sinus. Signed by: Ford Licona DO on 09/20/2019 6:11 AM
--- NOTE | 2019-09-21 13:40 | Consultation ---
DATE OF CONSULTATION: 09/19/2019 REASON FOR CONSULTATION: Infected pacemaker. HISTORY OF PRESENT ILLNESS: Thank you so much for asking me to see this patient. This is a very pleasant 88-year-old white male. He has been having problem with atrial fibrillation, had pacemaker placed in 2008. This had to be changed back in October last year or November this year, not so sure. Apparently, it has to be changed to an ICD. The patient was doing well. It was noted a few weeks ago that there was some swelling at the side of the pacemaker, then have a crest, some oozing. The patient was in the hospital. The patient has history of atrial fibrillation, congestive heart failure, ejection fraction 20%, diabetes mellitus with neuropathy. PAST SURGICAL HISTORY: Pacemaker placement as above. ALLERGIES: NKA. SOCIAL HISTORY: There is no smoking, drug abuse. DICTATION ENDS HERE. MD CELINA Barajas/ТАТЬЯНА /[id number]
== END 2019-09-19 17:08 | disposition short-term general hospital (02) ==
LOC: MED/SURG3 21:10
PROVIDERS: ADMIT Internal Medicine; ATTEND Internal Medicine
DX: T82.7XXA Infection and inflammatory reaction due to other cardiac and vascular devices, implants and grafts, initial encounter (principal); I13.0 Hypertensive heart and chronic kidney disease with heart failure and stage 1 through stage 4 chronic kidney disease, or unspecified chronic kidney disease; I50.22 Chronic systolic (congestive) heart failure; G47.33 Obstructive sleep apnea (adult) (pediatric); I48.91 Unspecified atrial fibrillation; Z80.9 Family history of malignant neoplasm, unspecified; Z87.891 Personal history of nicotine dependence; Z88.0 Allergy status to penicillin; E66.9 Obesity, unspecified; Z68.32 Body mass index [BMI] 32.0-32.9, adult; D29.1 Benign neoplasm of prostate; Z79.84 Long term (current) use of oral hypoglycemic drugs; N18.9 Chronic kidney disease, unspecified; E11.42 Type 2 diabetes mellitus with diabetic polyneuropathy; E11.22 Type 2 diabetes mellitus with diabetic chronic kidney disease
CPT/HCPCS: 36415; 71046; 80048; 82948 ×2; 85025; 87040; 87071; 87186; 87205; G0378 ×2; J0696; J1940; J3370 ×2; J7040; J7050

== ENCOUNTER → 2020-02-10 | Outpatient (CLI) | payer MEDICARE, OTHER ==
[2020-02-10 10:40] LABS: HEMOGLOBIN 13.4 g/dL (14.0-18.0)
[2020-02-10 11:12] LABS: INR 1.13; PROTHROMBIN TIME 15.2 seconds (11.9-14.5)
[2020-02-10 11:13] LABS: PARTIAL THROMBOPLASTIN TIME 35.4 seconds (23.8-35.5)
--- NOTE | 2020-02-10 12:13 | Diagnostic Imaging Report ---
EXAMINATION: CHEST SINGLE (NOT PORTABLE) INDICATION: Post procedural COMPARISON: Chest radiograph 09/19/2019 FINDINGS: LINES/TUBES:Right chest AICD. LUNGS:The left lung is moderately inflated. Right lung volume is low. Mild bibasilar patchy opacities. PLEURA: No pneumothorax status post thoracentesis. Moderate pleural effusion. Small left pleural effusion. MEDIASTINUM:Cardiomediastinal silhouette is stably enlarged. Atherosclerotic calcifications of the thoracic aorta. BONES/SOFT TISSUES:No acute osseous injury. ABDOMEN:No free air under the diaphragm. IMPRESSION: No pneumothorax status post right thoracentesis. Moderate right pleural effusion and small left pleural effusion. Pulmonary interstitial edema and cardiomegaly. Signed by: Barrera Carey MD on 02/10/2020 12:10 PM
--- NOTE | 2020-02-10 13:53 | Diagnostic Imaging Report ---
PROCEDURE: Ultrasound-guided thoracentesis Procedural Personnel Attending physician(s): Barrera Carey MD Fellow physician(s): None Resident physician(s): None Advanced practice provider(s): None Pre-procedure diagnosis: Pleural effusion Post-procedure diagnosis: Same Indication: Pleural effusion with compromised respiration Additional clinical history: None Complications: No immediate complications. IMPRESSION: Ultrasound-guided thoracentesis with drainage of 1200 mL of serous fluid. Plan: Resume care by clinical team. PROCEDURE SUMMARY: - Limited thoracic ultrasound - Ultrasound-guided thoracentesis - Additional procedure(s): None PROCEDURE DETAILS: Pre-procedure Consent: Informed consent for the procedure including risks, benefits and alternatives was obtained and time-out was performed prior to the procedure. Preparation: The site was prepared and draped using maximal sterile barrier technique including cutaneous antisepsis. Anesthesia/sedation Level of anesthesia/sedation: No sedation Anesthesia/sedation administered by: Not applicable Total intra-service sedation time (minutes): NA Limited thoracic ultrasound Limited thoracic ultrasound was performed using a curved transducer. A safe window for thoracentesis was identified. Left hemithorax findings: Small pleural effusion Right hemithorax findings: Large pleural effusion Thoracentesis Local anesthesia was administered. The pleural space was accessed under real-time ultrasound guidance and fluid return confirmed position. The fluid was drained. The catheter was removed, and a sterile bandage was applied. Catheter placed: 5F Shayan Post-drainage hemithorax findings: Small pleural effusion Additional Details Additional description of procedure: None Equipment details: None Specimens removed: Pleural fluid Estimated blood loss (mL): Less than 10 Standardized report: [email or web address] Attestation Signer name: Barrera Carey MD I attest that I was present for the entire procedure. I reviewed the stored images and agree with the report as written. Signed by: Barrera Carey MD on 02/10/2020 1:50 PM
[2020-02-10 14:47] LABS: BODY FLUID APPEARANCE SL.CLOUDY; BODY FLUID COLOR YELLOW; BODY FLUID TYPE PLEURAL; RBC,BODY FLUID 51 cells/uL; WBC,BODY FLUID 101 cells/uL
[2020-02-10 15:39] LABS: LYMPHOCYTES,BODY FLUID 64 %; MONO/MACROPHG,BODY FLUID 6 %; NEUTROPHILS,BODY FLUID 9 %; OTHER CELLS,BODY FLUID 21 %
== END ==
LOC: US 10:11
PROVIDERS: ATTEND Internal Medicine Critical Care Medicine
DX: J90 Pleural effusion, not elsewhere classified (principal)
CPT/HCPCS: 32555; 36415; 71045; 83615; 84157; 84478; 85014; 85049; 85610; 85730; 89051

== ENCOUNTER → 2020-02-23 | Outpatient (CLI) | payer MEDICARE, OTHER ==
[~2020-02-23] MED LIST changes: +CARVEDILOL12.5 MG PO; +HYDRALAZINE HCL25 MG PO; -KLOR-CON 1010 MEQ; +KLOR-CON 1010 MEQ PO; +PIOGLITAZONE30 MG PO; +TORSEMIDE20 MG PO; +VITAMIN B-121000 MC1 PO
--- NOTE | 2020-02-23 11:04 | Diagnostic Imaging Report ---
EXAM: CT Chest WITHOUT intravenous contrast 02/23/2020 9:14 AM INDICATION: Pleural effusion COMPARISON: Chest radiograph 02/10/2020 TECHNIQUE: Chest was scanned utilizing a multidetector helical scanner from the lung apex through the level of the adrenal glands without administration of IV contrast. Coronal and sagittal reformations were obtained. Routine protocol was performed. IV CONTRAST: None RADIATION DOSE: Total DLP: 575 mGy*cm. Dose modulation, iterative reconstruction, and/or weight based adjustment of the mA/kV was utilized to reduce the radiation dose to as low as reasonably achievable. COMPLICATIONS: None FINDINGS: LINES/ TUBES: Right chest pacer. LUNGS AND AIRWAYS: The central airways are patent. No focal consolidation or pulmonary edema. Near complete atelectasis of the right lower lobe and subsegmental right middle lobe atelectasis. 2.6 cm left lower lobe partially spiculated pulmonary nodule. PLEURA: Moderate right pleural effusion. Small left pleural effusion. No pneumothorax status post thoracentesis of earlier the same day. HEART AND MEDIASTINUM: Evaluation of the thyroid gland is limited by beam hardening artifact. No supraclavicular, axillary, mediastinal, or hilar lymphadenopathy. The heart is mildly enlarged. No pericardial effusion. Athetotic calcifications involve the coronary arteries, thoracic aorta, and proximal great vessels. The ascending aorta is ectatic, measuring up to 4.6 cm. UPPER ABDOMEN: No acute findings. BONES: The visualized bony thorax is within normal limits. SOFT TISSUES: Unremarkable. IMPRESSION: 2.6 cm partially spiculated left lower lobe pulmonary nodule is concerning for primary pulmonary malignancy. Recommend image guided tissue sampling and/or PET/CT for further evaluation. Moderate right pleural effusion. Small left pleural effusion. No pneumothorax status post right thoracentesis of earlier the same day. Near complete atelectasis of the right lower lobe and segmental atelectasis of the right middle lobe. Signed by: Barrera Carey MD on 02/23/2020 11:00 AM
--- NOTE | 2020-02-23 11:04 | Diagnostic Imaging Report ---
PROCEDURE: Ultrasound-guided thoracentesis Procedural Personnel Attending physician(s): CHARISMA RIVERA MD Fellow physician(s): None Resident physician(s): None Advanced practice provider(s): None Pre-procedure diagnosis: Pleural effusion Post-procedure diagnosis: Same Indication: Pleural effusion with compromised respiration Additional clinical history: None Complications: No immediate complications. IMPRESSION: Ultrasound-guided thoracentesis with drainage of 1200 mL of serous fluid. Plan: Resume care by clinical team. PROCEDURE SUMMARY: - Limited thoracic ultrasound - Ultrasound-guided thoracentesis - Additional procedure(s): None PROCEDURE DETAILS: Pre-procedure Consent: Informed consent for the procedure including risks, benefits and alternatives was obtained and time-out was performed prior to the procedure. Preparation: The site was prepared and draped using maximal sterile barrier technique including cutaneous antisepsis. Anesthesia/sedation Level of anesthesia/sedation: No sedation Anesthesia/sedation administered by: Not applicable Total intra-service sedation time (minutes): NA Limited thoracic ultrasound Limited thoracic ultrasound was performed using a curved transducer. A safe window for thoracentesis was identified. Left hemithorax findings: Small pleural effusion Right hemithorax findings: Large pleural effusion Thoracentesis Local anesthesia was administered. The pleural space was accessed under real-time ultrasound guidance and fluid return confirmed position. The fluid was drained. The catheter was removed, and a sterile bandage was applied. Catheter placed: 5F Tgeh Post-drainage hemithorax findings: Small pleural effusion Additional Details Additional description of procedure: None Equipment details: None Specimens removed: Pleural fluid Estimated blood loss (mL): Less than 10 Standardized report: [email or web address] Attestation Signer name: Barrera Carey MD I attest that I was present for the entire procedure. I reviewed the stored images and agree with the report as written. Signed by: Barrera Carey MD on 02/23/2020 11:01 AM
[2020-02-23 11:38] LABS: BODY FLUID APPEARANCE CLEAR; BODY FLUID COLOR YELLOW; BODY FLUID TYPE PLEURAL
[2020-02-23 11:41] LABS: RBC,BODY FLUID 165 cells/uL; WBC,BODY FLUID 137 cells/uL
[2020-02-23 11:47] LABS: EOSINOPHILS,BODY FLUID 6 %; LYMPHOCYTES,BODY FLUID 29 %; MONO/MACROPHG,BODY FLUID 61 %; NEUTROPHILS,BODY FLUID 3 %; OTHER CELLS,BODY FLUID 1 %
== END ==
LOC: CT 09:01
PROVIDERS: ATTEND Internal Medicine Critical Care Medicine
DX: J90 Pleural effusion, not elsewhere classified (principal); R06.00 Dyspnea, unspecified
CPT/HCPCS: 32555; 36415; 71250; 83615; 84157; 84478; 88305; 89051; C1729

== ENCOUNTER 2020-04-04 10:25 | Inpatient (IN) | payer MEDICARE, OTHER ==
[2020-03-31 11:24] LABS: ANION GAP 13.4 mmol/L (8-16); CALCIUM 8.8 mg/dL (8.4-10.2); CREATININE, SERUM 1.39 mg/dL (0.72-1.25); POTASSIUM 4.4 mmol/L (3.5-5.1)
[2020-03-31 11:30] LABS: BASOPHILS # (AUTO) 0.1 (0.0-0.1); BASOPHILS % 0.6 % (0.0-1.0); EOSINOPHILS # (AUTO) 0.3 (0.0-0.4); EOSINOPHILS % 3.5 % (0.0-6.0); HEMATOCRIT 36.3 % (38.2-49.6); HEMOGLOBIN 11.9 g/dL (14.0-18.0); LYMPHOCYTES # (AUTO) 1.3 (1.0-3.2); LYMPHOCYTES % 15.2 % (18.0-39.1); MEAN CORPUSCULAR HEMOGLOBIN 30.7 pg (28-32); MEAN CORPUSCULAR HGB CONC 32.8 g/dL (31-35); MEAN CORPUSCULAR VOLUME 93.6 fL (81-99); MONOCYTES # (AUTO) 0.9 (0.2-0.8); MONOCYTES % 10.2 % (4.4-11.3); NEUTROPHILS # (AUTO) 5.9 (2.1-6.9); NEUTROPHILS % 70.1 % (38.7-80.0); PLATELET COUNT 230 x10e3/uL (140-360); RED BLOOD COUNT 3.88 x10e6/uL (4.3-5.7); RED CELL DISTRIBUTION WIDTH 13.8 % (11.7-14.4)
[~2020-04-04] VITALS: Ht 193 cm; Wt 110.7 kg
[2020-04-04] MEDS ORDERED: VANCOMYCIN 1GM/NS 250 ML 250 ML ONE (10:44)
[2020-04-04] MEDS ORDERED: HEPARIN SOD/SOD CHLORIDE 1,000 ML ONE (12:24)
[2020-04-04] MEDS ORDERED: LIDOCAINE 1% W/EPINEPHRINE 20 ML VIAL ONE (12:58)
[2020-04-04] MEDS ORDERED: BACITRACIN 50,000 UNIT VIAL ONE (12:58)
[2020-04-04] MEDS ORDERED: BUPIVACAINE 0.5%/EPI 30 ML SDV INJ ONE (14:32)
[2020-04-04] MEDS ORDERED: TALC ONE (14:47)
[2020-04-04] MEDS ORDERED: SUGAMMADEX SODIUM 200 MG/2 ML VIAL IV ONE (15:04)
--- NOTE | 2020-04-04 16:17 | Diagnostic Imaging Report ---
EXAM: CHEST SINGLE (PORTABLE) DATE: 04/04/2020 3:45 PM INDICATION: Right pleural effusion status post chest tube placement COMPARISON: 02/10/2020 FINDINGS: Right sided pacing device identified in stable position. There has been interval placement of a right-sided chest tube. Small amount of subcutaneous and seen noted along the right chest wall. The trachea is midline. Trace residual right pleural effusion noted. A suspected trace left pleural effusion is present. Mildly increased right basilar opacities identified suggestive of atelectasis. There is no evidence for large focal consolidation or pneumothorax. The cardiomediastinal silhouette is stable in appearance. No acute osseous abnormality is identified. IMPRESSION: Interval placement of a right-sided chest tube without evidence for significant pneumothorax. Trace residual right pleural fluid and associated right basilar atelectasis noted. Signed by: Dr. Arjun Lopez MD on 04/04/2020 4:13 PM
[2020-04-04] MEDS ORDERED: NON-FORMULARY MEDICATION (Glipizide (Glipizide Xl) 10 MG) PO SCH (17:00)
[2020-04-04] MEDS ORDERED: NON-FORMULARY MEDICATION (Torsemide 20 MG) PO SCH (17:00)
[2020-04-04] MEDS: GLIPIZIDE 5 MG TAB ER PO SCH (17:00)
[2020-04-04] MEDS: METFORMIN HCL 500 MG TAB PO SCH (17:00)
[2020-04-04] MEDS ORDERED: NON-FORMULARY MEDICATION (Metformin Hcl 1,000 MG) PO SCH (17:00)
[2020-04-04] MEDS: HYDRALAZINE HCL 25 MG TAB PO SCH (17:00)
[2020-04-04] MEDS: CARVEDILOL 12.5 MG TAB PO SCH (17:00)
[2020-04-04 17:02] VITALS: BP 144/39
--- NOTE | 2020-04-04 17:15 | NUR ---
PT TO THE FLOOR FROM PACU. VITALS WNL. PT DENIES NEEDS AT THIS TIME.
[2020-04-04 17:20] VITALS: BP 144/39
[2020-04-04] MEDS ORDERED: DEXTROSE 50% SYRINGE 50 ML IV PRN (17:45)
[2020-04-04] MEDS: TORSEMIDE 10 MG TAB PO SCH (17:55)
[2020-04-04] MEDS ORDERED: DIPHENHYDRAMINE HCL 25 MG CAP PO PRN (18:00)
[2020-04-04] MEDS ORDERED: FENTANYL CITRATE/PF 100MCG/2 ML INJ ONE (18:40)
[2020-04-04 19:39] VITALS: BP 148/49
[2020-04-04] MEDS ORDERED: SEVOFLURANE INHAL SOLN 250 ML PEN BTL ONE (19:47)
[2020-04-04] MEDS ORDERED: ROCURONIUM BROMIDE 10 MG/ML 5ML VIAL IV ONE (19:47)
[2020-04-04] MEDS ORDERED: LIDOCAINE HCL 2% LOCAL INJ 5 ML SDV VIAL INJ ONE (19:47)
[2020-04-04] MEDS ORDERED: EPHEDRINE SULFATE INJ 50 MG/ML VIAL ONE (19:47)
[2020-04-04] MEDS ORDERED: ETOMIDATE 2 MG/ML 10 ML INJ IV ONE (19:47)
[2020-04-04] MEDS ORDERED: ONDANSETRON HCL INJ 2MG/ML 2ML 2 MG/ML VIAL ONE (19:47)
[2020-04-04] MEDS ORDERED: NEOSTIGMINE 1 MG/ML 10ML VIAL ONE (19:47)
[2020-04-04] MEDS ORDERED: GLYCOPYRROLATE INJ 0.2 MG/ML VIAL ONE (19:47)
[2020-04-04] MEDS ORDERED: ACETAMINOPHEN 1000 MG/100 ML IV ONE (19:47)
--- NOTE | 2020-04-04 19:51 | Consultation ---
DATE OF CONSULTATION: Pulmonary Critical Care Consultation HISTORY OF PRESENT ILLNESS: The patient is an 89-year-old man. He has had recurrent right pleural effusions. He has required thoracentesis several times over the past 3 or 4 months. Each time he has had a borderline exudate. Cytology has been negative. A recent CT scan also showed a 2 cm lesion in the left lung. A CT-guided biopsy did show a carcinoma. He is awaiting an outpatient PET scan and metastatic workup. He was evaluated by Cardiothoracic Surgery for the recurrent pleural effusion. He underwent a video-assisted thoracoscopy today with a pleurodesis. Apparently, 1.5 L of fluid was removed. He otherwise tolerated the procedure well and is now on oxygen. He has a chest tube in place. PAST SURGICAL HISTORY: 1. Status post VATS procedure as noted above. 2. Status post CT-guided biopsy of the left lung nodule. 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 3. Recurrent right pleural effusion. SOCIAL HISTORY: The patient is not an active smoker or drinker. ALLERGIES: THERE ARE NO KNOWN DRUG ALLERGIES. REVIEW OF SYSTEMS: There is no fever. He has no headache. He has no neck pain. He has no chest pain. He is not having any dyspnea. He does have a chest tube in place. His abdomen is soft and nontender. There is no rebound or guarding. Examination of extremities shows no leg edema. PHYSICAL EXAMINATION: VITAL SIGNS: The patient is afebrile. The vital signs are stable. HEENT: Shows no facial swelling or erythema. CARDIAC: Reveals regular rate and rhythm with normal S1 and S2. LUNGS: Auscultation of lungs reveals decreased breath sounds at the bases. There is no wheezing. ABDOMEN: Soft and nontender. There is a right-sided chest tube in place. There is no leg edema. NEUROLOGICAL: Shows no focal abnormalities. IMPRESSION: 1. Bronchogenic carcinoma. 2. Recurrent right pleural effusion and video-assisted thoracoscopy. 3. Chronic systolic congestive heart failure. PLAN: 1. Continue thoracostomy drainage. 2. Remove chest tube when okay with CT Surgery. 3. Await completion of metastatic workup as an outpatient. 4. Oncology to re-evaluate the patient. MD DL Rodrigues/MODL /[id number]
[2020-04-04 20:00] VITALS: BP 148/49
--- NOTE | 2020-04-04 20:16 | Operative Report ---
DATE OF PROCEDURE: 04/04/2020 SURGEON: Jacob Delcid MD PREOPERATIVE DIAGNOSIS: Right pleural effusion, left lung cancer. POSTOPERATIVE DIAGNOSIS: Right pleural effusion, left lung cancer. OPERATIVE PROCEDURES: 1. Flexible bronchoscopy. 2. Thoracoscopic drainage right pleural effusion. 3. Thoracoscopic talc pleurodesis. TROUBLE TRACER: Nursing. ANESTHESIA: General endotracheal. INDICATIONS: This is an 89-year-old man with a large right pleural effusion. He has a documented left lung cancer. Thoracenteses on the right have not shown any evidence of malignancy. Surgical drainage has been recommended. Prior to surgery, I described the operation to the patient and his . I told them both that the risks of surgery would include , bleeding, infection, heart attack, stroke, pneumonia, prolonged ICU stay, mechanical ventilation, tracheostomy, recurrence of the effusion (which I estimated approximately 20% to 30%), etc. The patient and his each stated that they understood, no further questions, and wanted to proceed. FINDINGS: 1500 mL straw-colored pleural effusion. Sample sent for cytology and multiple cultures including anaerobic, aerobic, fungal, and AFB. Talc pleurodesis uneventful. PROCEDURE: The patient was taken to the operative room on April 04, 2020 and placed supine upon the operating room table. General endotracheal anesthesia was smoothly induced. A double-lumen endotracheal tube was placed. Flexible bronchoscopic examination was performed. There were no endobronchial lesions identified via the double-lumen endotracheal tube. The left lung upper and lower lobes were free of endobronchial lesions. On the right, the right mainstem bronchus, bronchus intermedius, right upper, lower and middle lobe bronchi were all widely patent without abnormalities. The patient was then turned with his right side up. The right lung was deflated. The right chest was sterilely prepped and draped in the usual fashion using alcohol prewash and Betadine scrub and solution. Two Thoracoports were inserted through stab wound incisions. Then, the scope and suction catheters were introduced. There was approximately 1500 mL of a straw colored pleural effusion. This was evacuated and sent for analysis as above. The underlying lung appeared normal. There were no pulmonary or mediastinal lesions identified. Talc was then instilled via catheter. A chest tube was inserted under thoracoscopic visualization. The chest tube was affixed in place. Thoracoports were withdrawn. Wounds were closed in layers using absorbable suture. Sterile dressings were applied. Sponge, instrument, needle counts were correct both prior to and after wound closure. Independent search of the operative field by both operating surgeons and nurse revealed no retained instruments or sponges. The patient tolerated the procedure well, was taken to the recovery area in stable condition. MD SAMANTHA BackL/MODL /[id number]
[2020-04-04] MEDS: INSULIN LISPRO 100 UNIT/1 ML 3ML VIAL SQ SCH (20:47)
[2020-04-04] MEDS: PRAVASTATIN 20 MG TAB PO SCH (20:53)
[2020-04-04 21:00] VITALS: BP 148/49
[2020-04-04 23:55] VITALS: BP 140/42
[2020-04-05] VITALS (7 sets, daily range): BP systolic 140–155; BP diastolic 49–59
[2020-04-05 06:13] LABS: BASOPHILS % 0.3 % (0.0-1.0); EOSINOPHILS # (AUTO) 0.2 (0.0-0.4); EOSINOPHILS % 2.2 % (0.0-6.0); HEMATOCRIT 36.8 % (38.2-49.6); HEMOGLOBIN 11.7 g/dL (14.0-18.0); LYMPHOCYTES # (AUTO) 1.1 (1.0-3.2); LYMPHOCYTES % 10.9 % (18.0-39.1); MEAN CORPUSCULAR HEMOGLOBIN 29.9 pg (28-32); MEAN CORPUSCULAR HGB CONC 31.8 g/dL (31-35); MEAN CORPUSCULAR VOLUME 94.1 fL (81-99); MONOCYTES # (AUTO) 1.1 (0.2-0.8); MONOCYTES % 10.9 % (4.4-11.3); NEUTROPHILS # (AUTO) 7.5 (2.1-6.9); NEUTROPHILS % 75.4 % (38.7-80.0); PLATELET COUNT 206 x10e3/uL (140-360); RED BLOOD COUNT 3.91 x10e6/uL (4.3-5.7); RED CELL DISTRIBUTION WIDTH 13.9 % (11.7-14.4)
[2020-04-05 06:36] LABS: ANION GAP 13.2 mmol/L (8-16); CALCIUM 8.5 mg/dL (8.4-10.2); CREATININE, SERUM 1.32 mg/dL (0.72-1.25); POTASSIUM 4.2 mmol/L (3.5-5.1)
[2020-04-05] MEDS: INSULIN LISPRO 100 UNIT/1 ML 3ML VIAL SQ SCH ×4 (07:30→20:39)
[2020-04-05] MEDS: GLIPIZIDE 5 MG TAB ER PO SCH ×2 (07:52→16:54)
[2020-04-05] MEDS: METFORMIN HCL 500 MG TAB PO SCH ×2 (07:52→16:54)
[2020-04-05] MEDS ORDERED: PIOGLITAZONE HCL PO SCH (09:00)
[2020-04-05] MEDS: HYDRALAZINE HCL 25 MG TAB PO SCH ×2 (09:00→16:54)
[2020-04-05] MEDS ORDERED: NON-FORMULARY MEDICATION (Potassium Chloride (Klor-Con 10) 10 MEQ) PO SCH (09:00)
--- NOTE | 2020-04-05 09:25 | Diagnostic Imaging Report ---
EXAM: CHEST SINGLE (PORTABLE) DATE: 04/05/2020 6:20 AM INDICATION: Right pleural effusion COMPARISON: 04/04/2020 FINDINGS: Right-sided chest tube and right pacing device identified in stable position. Subcutaneous emphysema again noted along the right lateral chest wall. Stable appearing opacities again identified within the right lower lung zone which may reflect atelectasis. Suspected trace left pleural effusion again noted. No significant residual right pleural effusion is appreciated. There is no evidence for new large focal consolidation or pneumothorax. The cardiomediastinal silhouette is stable in appearance. No acute osseous abnormalities identified. IMPRESSION: No significant interval change from 04/04/2020. Signed by: Dr. Arjun Lopez MD on 04/05/2020 9:21 AM
[2020-04-05] MEDS: ASPIRIN 81 MG CHEW TAB PO SCH (10:13)
[2020-04-05] MEDS: CARVEDILOL 12.5 MG TAB PO SCH ×2 (10:13→16:54)
[2020-04-05] MEDS: CYANOCOBALAMIN 1,000 MCG TAB PO SCH (10:13)
[2020-04-05] MEDS: POTASSIUM CHLORIDE 10MEQ EA PO SCH (10:13)
[2020-04-05] MEDS: FINASTERIDE 5 MG TAB PO SCH (10:13)
[2020-04-05] MEDS: DOCUSATE SODIUM 100 MG CAP PO SCH (10:13)
[2020-04-05] MEDS: TAMSULOSIN HCL 0.4 MG CAP PO SCH (10:13)
[2020-04-05] MEDS: TORSEMIDE 10 MG TAB PO SCH ×2 (11:47→16:54)
--- NOTE | 2020-04-05 11:48 | NUR ---
demadex given late due to missing med.
--- NOTE | 2020-04-05 14:05 | Progress Note ---
DATE: SUBJECTIVE: The patient is not complaining of pain. He has less drainage from his chest tube. PHYSICAL EXAMINATION: VITAL SIGNS: The patient is afebrile. Vital signs are stable. HEENT: No facial swelling or erythema. CARDIAC: Reveals a regular rate and rhythm with normal S1 and S2. LUNGS: Auscultation of the lungs shows decreased breath sounds at the bases. There is no wheezing. ABDOMEN: Soft, nontender. There is no rebound or guarding. EXTREMITIES: No leg edema or calf tenderness. There is no cyanosis clubbing. SKIN: No rashes. NEUROLOGICAL: No focal abnormalities. IMPRESSION: 1. Bronchogenic carcinoma. 2. Recurrent right pleural effusion with video-assisted thoracoscopy. 3. Chronic systolic congestive heart failure. PLAN: 1. Continue to monitor CT drainage and discontinue chest tube when okay with thoracic surgery. 2. Continue current cardiac regimen. 3. The patient needs to continue treatment with Oncology as an outpatient. MD DL Rodrigues/ТАТЬЯНА /[id number]
--- NOTE | 2020-04-05 15:27 | NUR ---
Nutrition Screen Note RD Recommendation for Physician: - Continue current diet per BG trend Plan of Care: RD following, monitoring for tolerance and adequacy Nutrition reason for involvement: Nutrition Risk Trigger Primary Diagnose(s): R pleural effusion PMH: recurrent pleural effusion requiring thoracentesis, bronchiogenic carcinoma, chronic systolic CHF Ht: 76 in Wt: 244 lb BMI: 29.7 kg/m2 IBW: [address] Assessment: (04/05) 89 YOM admitted for R pleural effusion, seen today per MST screen. Pt discussed during am MDR, requiring thoracentesis and chest tube placement. Pt reports good appetite and po intake of 3 meals per day [employer], noted 100% meal intake per chart. Pt reports UBW of 240-244#, no wt loss noted. Pt denies any N/V/C/D or difficulties chewing or swallowing. Pt with no questions or concerns at time of visit. Chart reviewed. Labs and meds reviewed. Will continue to monitor. Current Diet: 1800 ADA Malnutrition Evaluation (04/05/20) The patient does not meet criteria for a specified degree of malnutrition at this time. Will re-evaluate at follow-up as appropriate. Diet Education Needs Assessment: Diet education not indicated. Diet tolerance: tolerating po Nutrition Care Level: low Signed: Mirna Abarca RD, LD, [facility]
[2020-04-05] MEDS: PRAVASTATIN 20 MG TAB PO SCH (20:27)
[2020-04-05] MEDS: MORPHINE SULFATE 2 MG/ML SYR 1ML IV PRN (20:43)
[2020-04-06] VITALS (10 sets, daily range): BP systolic 122–169; BP diastolic 46–66
[2020-04-06] MEDS: MORPHINE SULFATE 2 MG/ML SYR 1ML IV PRN (05:30)
--- NOTE | 2020-04-06 07:00 | NUR ---
bedside shift report received pt in stable condition, denies pain at this time, updated on poc voiced understanding, right chest tube in place, r wrist 20g no ss of infiltration noted, no other co voiced call light in reach will continue to monitor
[2020-04-06] MEDS: INSULIN LISPRO 100 UNIT/1 ML 3ML VIAL SQ SCH ×4 (07:30→20:16)
[2020-04-06] MEDS: HYDRALAZINE HCL 25 MG TAB PO SCH ×2 (09:07→16:50)
[2020-04-06] MEDS: TORSEMIDE 10 MG TAB PO SCH ×2 (09:07→16:50)
[2020-04-06] MEDS: DOCUSATE SODIUM 100 MG CAP PO SCH (09:07)
[2020-04-06] MEDS: GLIPIZIDE 5 MG TAB ER PO SCH ×2 (09:07→16:50)
[2020-04-06] MEDS: TAMSULOSIN HCL 0.4 MG CAP PO SCH (09:07)
[2020-04-06] MEDS: ASPIRIN 81 MG CHEW TAB PO SCH (09:07)
[2020-04-06] MEDS: CYANOCOBALAMIN 1,000 MCG TAB PO SCH (09:07)
[2020-04-06] MEDS: POTASSIUM CHLORIDE 10MEQ EA PO SCH (09:07)
[2020-04-06] MEDS: METFORMIN HCL 500 MG TAB PO SCH ×2 (09:07→16:50)
[2020-04-06] MEDS: FINASTERIDE 5 MG TAB PO SCH (09:07)
[2020-04-06] MEDS: CARVEDILOL 12.5 MG TAB PO SCH ×2 (09:07→16:50)
--- NOTE | 2020-04-06 10:02 | Diagnostic Imaging Report ---
EXAMINATION: CHEST SINGLE (PORTABLE) INDICATION: Pleural effusion COMPARISON: Chest radiograph 04/05/2020 FINDINGS: LINES/TUBES:Unchanged right apical chest tube. Right chest pacer. EKG leads overlie the chest. LUNGS:The lungs are moderately inflated. Unchanged bibasilar airspace opacities. PLEURA:Small bilateral pleural effusions. No pneumothorax. MEDIASTINUM:Cardiomediastinal silhouette is stably enlarged. BONES/SOFT TISSUES:No acute osseous injury. Unchanged right lateral chest wall subcutaneous emphysema. ABDOMEN:No free air under the diaphragm. IMPRESSION: No significant interval change. Signed by: Barrera Carey MD on 04/06/2020 9:58 AM
--- NOTE | 2020-04-06 15:24 | Progress Note ---
DATE: SUBJECTIVE: The patient was seen by Hematology/Oncology this morning. He is awaiting potential removal of his chest tube. PHYSICAL EXAMINATION: VITAL SIGNS: The blood pressure is 150/51 and saturation is 97% on 2 L. HEENT: Shows no facial swelling or erythema. CARDIAC: Reveals a regular rate and rhythm with normal S1 and S2. LUNGS: Auscultation of lungs reveals decreased breath sounds at the bases. There is no wheezing. ABDOMEN: Soft and nontender. There is no rebound or guarding. EXTREMITIES: Shows no leg edema or calf tenderness. There is no cyanosis or clubbing. SKIN: Shows no rashes. There is a chest tube in good position. LABORATORY DATA: White blood cell count is 9.9 and the hemoglobin is 11.7. The platelet count is 206. The BUN to creatinine ratio is 22 to 1.32. Other electrolytes are within normal limits. RADIOGRAPHIC DATA: Chest x-ray shows no change. IMPRESSION: 1. Bronchogenic carcinoma. 2. Recurrent right pleural effusion requiring video-assisted thoracoscopy and pleurodesis. 3. Congestive heart failure. PLAN: 1. Removal of chest tube and okay with Surgery. 2. Pain control. 3. Follow up with Oncology as outpatient. Tarik Gomez MD [facility]/ТАТЬЯНА /[id number]
--- NOTE | 2020-04-06 19:19 | NUR ---
Received change of shift report from AM nurse. Walking rounds completed. Patient in bed in supine position. No c/o pain at this time. Comtinue monitor.
[2020-04-06] MEDS ORDERED: MORPHINE SULFATE 2 MG/ML SYR 1ML IV NR (19:42)
--- NOTE | 2020-04-06 20:00 | NUR ---
Dr Trinidad on the floor. Removed chest tube. @mg of morphine given. Stat chest x-ray ordered. Patient did well. Repositioned in bed.
[2020-04-06] MEDS: PRAVASTATIN 20 MG TAB PO SCH (20:16)
--- NOTE | 2020-04-06 20:49 | Diagnostic Imaging Report ---
EXAMINATION: CHEST SINGLE (PORTABLE) INDICATION: ^Chest tubes removal ^[id number] ^2019 COMPARISON: 04/06/2020 FINDINGS: AP view TUBES and LINES: Stable right chest wall cardiac device. Interval removal of right chest tube. LUNGS: Lungs are well inflated. Bilateral mid to lower lung field airspace opacities. PLEURA: No visible pneumothorax. HEART AND MEDIASTINUM: The cardiomediastinal silhouette is enlarged. BONES AND SOFT TISSUES: No acute osseous lesion. Increased right lateral lower chest wall emphysema. UPPER ABDOMEN: No free air under the diaphragm. IMPRESSION: Interval removal of right chest tube. No visible pneumothorax. Otherwise, pulmonary status is not significantly changed from prior exam. Signed by: Dr. Ricky Mckinley MD on 04/06/2020 8:44 PM
--- NOTE | 2020-04-06 21:26 | NUR ---
Chest x-ray completed. X-ray normal. Patient blood glucose checked = 122. Night snack given. Patient resting quitly at this time.
--- NOTE | 2020-04-07 00:51 | Progress Note ---
DATE: 04/06/2020 SUBJECTIVE: The patient doing well after drainage of pleural effusion and thoracoscopic talc pleurodesis. PHYSICAL EXAMINATION: GENERAL: Wound is clean. LUNGS: No air leak in Pleur-evac. Full breath sounds bilaterally with scattered crackles. CARDIAC: Shows a regular rate and rhythm. EXTREMITIES: No calf tenderness. No cyanosis. IMAGING: Chest x-ray is reviewed. Lung is fully expanded. There is a minimal residual pleural effusion. WBC 9.9, hemoglobin 11.7. Cytology on the pleural effusion: Negative for malignancy. Cultures on the pleural fluid are negative today. IMPRESSION: Doing well after thoracoscopic drainage of pleural effusion and talc pleurodesis. Chest tube drainage is minimal at approximately 60 mL per 24 hours. Chest tube removed. MD JUSTIN Back/MODL /[id number]
[2020-04-07 05:56] VITALS: BP 139/66
--- NOTE | 2020-04-07 06:30 | NUR ---
Patient received a total bed bath. Tolerated well. O2 off. Patient poss d/c today.
--- NOTE | 2020-04-07 06:45 | Diagnostic Imaging Report ---
EXAMINATION: CHEST SINGLE (PORTABLE) INDICATION: ^chest tube COMPARISON: 04/06/2020 FINDINGS: AP view TUBES and LINES: Right mechanical cardiac device. No chest tube is identified. LUNGS: Unchanged right lung airspace disease. Unchanged left basilar atelectasis. PLEURA: No pleural effusion or pneumothorax. HEART AND MEDIASTINUM: Stable cardiomegaly. BONES AND SOFT TISSUES: Unchanged right chest wall subcutaneous air. UPPER ABDOMEN: No free air under the diaphragm. IMPRESSION: No interval change. No identifiable right pneumothorax status post chest tube removal. Signed by: Gus Molina MD on 04/07/2020 6:42 AM
[2020-04-07] MEDS: INSULIN LISPRO 100 UNIT/1 ML 3ML VIAL SQ SCH ×2 (07:30→11:14)
[2020-04-07 08:00] VITALS: BP 144/48
[2020-04-07] MEDS: METFORMIN HCL 500 MG TAB PO SCH (08:09)
[2020-04-07] MEDS: GLIPIZIDE 5 MG TAB ER PO SCH (08:10)
[2020-04-07] MEDS: HYDRALAZINE HCL 25 MG TAB PO SCH (08:10)
[2020-04-07] MEDS: DOCUSATE SODIUM 100 MG CAP PO SCH (08:12)
[2020-04-07] MEDS: ASPIRIN 81 MG CHEW TAB PO SCH (08:12)
[2020-04-07] MEDS: TAMSULOSIN HCL 0.4 MG CAP PO SCH (08:13)
[2020-04-07] MEDS: TORSEMIDE 10 MG TAB PO SCH (08:13)
[2020-04-07] MEDS: CYANOCOBALAMIN 1,000 MCG TAB PO SCH (08:14)
[2020-04-07] MEDS: FINASTERIDE 5 MG TAB PO SCH (08:14)
[2020-04-07] MEDS: POTASSIUM CHLORIDE 10MEQ EA PO SCH (08:14)
[2020-04-07] MEDS: CARVEDILOL 12.5 MG TAB PO SCH (08:18)
[2020-04-07] MEDS ORDERED: ENOXAPARIN SOD INJ 40 MG/0.4 ML SYR SC SCH ×2 (09:00)
--- NOTE | 2020-04-07 10:44 | NUR ---
Call has been placed to Dr Jaswinder Delcid for clearance to give the lovenox. The chest tube was removed last evening.
--- NOTE | 2020-04-07 11:23 | NUR ---
Pt working with the incentive spirometer. Achieved 1,000 with instruction. Will continue to reinforce education/ use.
[2020-04-07 12:00] VITALS: BP 144/53
--- NOTE | 2020-04-07 13:04 | NUR ---
CM MET WITH PT REGARDING HOME 02 PT WITH STAGE 4 LUNG CANCER WILL DO HOME 02 EVAL TODAY
--- NOTE | 2020-04-07 14:47 | NUR ---
Pt has been evaluated by physical therapy, home physical therapy has been recommended. Pt refuses home physical therapy. Home oxygen has been ordered and will be delivered to hospital for pt prior to discharge. Pt accepts he must use oxygen while up and walking. has been educated and aware of order. Pt has been given his incentive spirometer and reinforced education and repeat usage of the device has occurred.
--- NOTE | 2020-04-07 14:50 | Progress Note ---
DATE: SUBJECTIVE: The patient had the right-sided chest tube removed yesterday. He has no new complaints. He is not complaining of pain. He is eager to go home. PHYSICAL EXAMINATION: VITAL SIGNS: The patient is afebrile. The blood pressure is 144/53 and saturation is 96% on 1 L. HEENT: Shows no facial swelling or erythema. CARDIAC: Reveals regular rate and rhythm with normal S1 and S2. LUNGS: Auscultation of lungs reveals decreased breath sounds at the bases. There is no wheezing. ABDOMEN: Soft and nontender. There is no rebound or guarding. EXTREMITIES: Shows no leg edema or calf tenderness. There is no cyanosis or clubbing. SKIN: Shows no rashes. NEUROLOGICAL: Shows no focal abnormalities. IMPRESSION: 1. Bronchogenic carcinoma. 2. Status post video-assisted thoracoscopic surgery and pleurodesis for persistent right-sided pleural effusion. 3. Prior history of congestive heart failure. PLAN: 1. Arrange for discharge when okay with Thoracic Surgery. 2. Follow up with Oncology as outpatient. Tarik Gomez MD LMH/MODL /[id number]
[2020-04-07 15:00] VITALS: BP 146/56
--- NOTE | 2020-04-07 15:19 | NUR ---
HOME 02 EVAL DONE AND PT QUALIFIES FOR HOME 0XYGEN CHOICE LETTER SIGNED FOR [facility] AND PLACED ON CHART COPY OF CHOICE LETTER TO PT ALONG WITH MY CARD SPOKE WITH PT'S OVER PHONE IN PT'S ROOM AND EXPLAINED HOME 02 AND SHE IS AGREEABLE CALLED [facility] [phone] FAX: [phone] CLINICALS FAXED AND CONFIRMATION REC'D PORTABLE TANK DELIVERED TO PT'S ROOM BY SIMON VAUGHAN PT TO CALL [facility] UPON ARRIVAL HOME TO HAVE CONCENTRATOR DELIVERED
--- NOTE | 2020-04-07 15:24 | NUR ---
Juan RECOMMENDS HOME HEALTH CARE D/W PT AND HE REFUSES; STATES , "I GET ALL THE EXCERCISE AT HOME THAT I NEED WALKING FROM BED TO BR TO LIVING ROOM"
[2020-04-07] MEDS ORDERED: HOME OXYGEN (16:01)
== END 2020-04-07 17:51 | disposition home or self-care (01) | DRG 167 ==
LOC: OR 10:25 → PACU V 15:50 → IMCU 17:26
PROVIDERS: ADMIT Surgery; ATTEND Surgery
PROC: 3E0L4GC Introduction of Other Therapeutic Substance into Pleural Cavity, Percutaneous Endoscopic Approach (ICD-10-PCS; 2020-04-04)
PROC: 0W9940Z Drainage of Right Pleural Cavity with Drainage Device, Percutaneous Endoscopic Approach (ICD-10-PCS; principal; 2020-04-04 13:00)
DX: J90 Pleural effusion, not elsewhere classified (principal); C34.32 Malignant neoplasm of lower lobe, left bronchus or lung; I50.22 Chronic systolic (congestive) heart failure; J96.10 Chronic respiratory failure, unspecified whether with hypoxia or hypercapnia; D64.9 Anemia, unspecified; E53.8 Deficiency of other specified B group vitamins; Z95.810 Presence of automatic (implantable) cardiac defibrillator; Z88.0 Allergy status to penicillin; Z79.82 Long term (current) use of aspirin; Z79.84 Long term (current) use of oral hypoglycemic drugs; Z80.8 Family history of malignant neoplasm of other organs or systems; Z80.1 Family history of malignant neoplasm of trachea, bronchus and lung; Z80.3 Family history of malignant neoplasm of breast; Z80.41 Family history of malignant neoplasm of ovary; Z11.59 Encounter for screening for other viral diseases
CPT/HCPCS: 36415; 71045; 80048; 82948; 85025; 86850; 86900; 86920; 87071; 87075; 87102; 87205; 87206; 87635; 88112; 88305; 93005; 96372; J1650; J2001; J2270; J2405; J2710; J3010; J3370

== ENCOUNTER 2020-07-22 15:34 | Observation (INO) | payer MEDICARE, OTHER ==
[~2020-07-22] VITALS: Ht 193 cm; Wt 115.7 kg
[~2020-07-22 15:34] MED LIST changes: +HOME OXYGEN
--- OUTSIDE RECORDS SUMMARY | 2020-07-22 15:37 | XMS REPORT | Clinical Summary ---
Author Author [facility] Organization [facility] Address Unknown Phone Unavailable Care Team Providers Care Media Planner / Buyer Name Role Phone PCP Unavailable Allergies Comments Active Allergy Reactions Severity Noted Date Penicillins 03/23/2020 Medications End Date Status Medication Sig Dispensed Refills Start Date Active carvediloL (COREG) 12.5 TAKE ONE 3 MG tablet TABLET BY 0 MOUTH TWICE A DAY FOR 90 DAYS Active finasteride (PROSCAR) 5 Take 5 mg by 1 mg tablet mouth daily. 0 Active glipiZIDE (GLUCOTROL XL) Take 10 mg by 1 12/28 10 MG 24 hr tablet mouth 2 (two) 0 times daily. Active hydrALAZINE (APRESOLINE) Take 25 mg by 1 02/28 25 MG tablet mouth 2 (two) 0 times daily. Active metFORMIN (GLUCOPHAGE) Take 1,000 mg 1 02 1000 MG tablet by mouth 2 0 (two) times daily. Active pravastatin (PRAVACHOL) Take 40 mg by 1 40 MG tablet mouth daily. 0 Active tamsulosin (FLOMAX) 0.4 Take 0.4 mg 1 mg Cap 24 hr capsule by mouth 0 daily. Active torsemide (DEMADEX) 20 MG Take by mouth 0 02/24 tablet 2 (two) times 0 daily. Active KLOR-CON 10 10 mEq CR Take 10 mEq 3 01/29/20 2 tablet by mouth 0 daily with breakfast. Active pioglitazone (ACTOS) 30 Take 30 mg by 1 MG tablet mouth daily. 0 Active aspirin 81 MG EC tablet Take 81 mg by 0 mouth daily. Active cyanocobalamin, vitamin Take 1,000 0 B-12, (VITAMIN B-12) 1000 mcg by mouth MCG tablet daily. Active multivitamin per tablet Take 1 tablet 0 by mouth daily. 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); Malignant ventricular arrhythmias; Essential hypertension; Hypercholesterolemia; Type 2 diabetes mellitus without complication, without long-term current use of insulin (HCC); Shortness of breath 03/23/2020 Video - Cardiology Telemedicine after 07/22/2019 Family History Medical History Relation Name Comments Cancer Brother Lung Cancer Cancer Father Cancer Mother Liver Cancer Cancer Sister Ovarian Cancer Breast cancer Sister Double mastectomy/f emale organs removed Relation Name Status Comments Brother Alive Brother Father Mother Sister Sister Alive Sister Social History Date Tobacco Use Types Packs/Day Years Used Former Smoker Smokeless Tobacco: Never Used Alcohol Use Drinks/Week oz/Week Comments No Alcohol Habits Answer Date Recorded How often do you have a drink containing alcohol? Never 03/23/2020 How many drinks containing alcohol do you have on No t asked a typical day when you are drinking? How often do you have six or more drinks on one Not asked occasion? Sex Assigned at Date Recorded Not on file Industry Job Start Date Occupation Not on file Not on file Not on file Travel End Travel History Travel Start No recent travel history available. Last Filed Vital Signs Time Taken Vital Sign Reading 03/23/2020 9:14 AM CDT Blood Pressure 148/52 03/23/2020 9:14 AM CDT Pulse 88 - Temperature - - Respiratory Rate - - Oxygen Saturation - - Inhaled Oxygen - Concentration 03/23/2020 9:14 AM CDT Weight 112.5 kg (248 lb) 03/23/2020 9:14 AM CDT Height 193 cm (6' 4") 03/23/2020 9:14 AM CDT Body Mass Index 30.19 Plan of Treatment Health Maintenance Due Date Last Done Comments INFLUENZA VACCINE (#1) 2020 PNEUMOCOCCAL 65+ 08/25/2020 08/25/2019 LOW/MEDIUM RISK (2 of 2 - PCV13) Results Not on fileafter 07/22/2019 Insurance Payer Benefit Subscriber ID Type Phone Address Plan / Group MEDICARE MEDICARE A xxxxxxxxxxx Medicare B
--- OUTSIDE RECORDS SUMMARY | 2020-07-22 15:38 | XMS REPORT | Continuity of Care Document ---
Author Author [facility] t Organization [facility] Address 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 Name Role Phone DO XUAN GAVIRIA DO PCP Mehrdad Sun MD Attphys [phone] RUDI SUN Attphys Unavailable CHARISMA RIVERA Attphys Unavailable FRANCESCO JIMENEZ Attphys Unavailable RUDI SUN Admphys Unavailable FRANCESCO JIMENEZ Admphys Unavailable Payers Payer Name Policy Type Policy Number Effective Date Expiration Date Marianne mcintosh MEDICAREMEDICARE A BxxxxxxxxxxxMedicare xxxxxxxxxxx [facility] Miscellaneous Ppo NA 2011 00:00:00 [facility] Medicare A & B NA 1997 00:00:00 [facility] Problems Condition Name Condition Details Condition Category Status Onset Date Resolution Date Last Treatment Date Treating Clinician Comments Source Problem Condition [facility] Allergies, Adverse Reactions, Alerts Allergy Name Allergy Type Status Severity Reaction(s) Onset Date Inacti ve Date Treating Clinician Comments Source Penicillins Propensity to adverse reactions Active 2019 00:00:00 [facility] Penicillins DA Active SV 2020-03-16 00:00:00 [facility] Penicillin Allergy to substance Active Moderate RASH, ITCHING 2 00:00:00 [facility] Penicillins DA Active U 2009-10-25 00:00:00 [facility] Family History Family Member Diagnosis Comments Start Date Stop Date Source Natural brother Cancer [facility] Natural father Cancer [facility] Natural mother Cancer [facility] Natural sister Cancer [facility] Natural sister Breast cancer [facility] Social History Social Habit Start Date Stop Date Quantity Comments Source History SDOH Alcohol Std Drinks [facility] History SDOH Alcohol Binge [facility] Sex Assigned At [facility] History SDOH Alcohol Frequency 2020-03-23 00:00:00 2020-03-23 00:00:0 0 1 [facility] Smoking Status Start Date Stop Date Source Former smoker 2020-05-04 00:00:00 2020-05-04 00:00:00 [facility] Medications Ordered Medication Name Filled Medication Name Start Date Stop Da te Current Medication? Ordering Clinician Indication Dosage Frequency Signature (SIG) Comments Components Source aspirin 81 MG EC tablet 2020-03-23 09:23:06 Yes 81mg QD Take 81 mg by mouth daily. [facility] cyanocobalamin, vitamin B-12, (VITAMIN B-12) 1000 MCG tablet 2020-03-23 09:23:06 Yes 1000ug QD Take 1,000 mcg by mouth daily . [facility] multivitamin per tablet 2020-03-23 09:23:06 Yes 1{tbl} QD Take 1 tablet by mouth daily. [facility] torsemide (DEMADEX) 20 MG tablet 2020-03-16 00:00:00 Yes Q.5D Take by mouth 2 (two) times daily. [facility] hydrALAZINE (APRESOLINE) 25 MG tablet 2020-02-29 00:00:00 Y es 25mg Q.5D Take 25 mg by mouth 2 (two) times daily. [facility] finasteride (PROSCAR) 5 mg tablet 2020-02-28 00:00:00 Yes 5mg QD Take 5 mg by mouth daily. [facility] tamsulosin (FLOMAX) 0.4 mg Cap 24 hr capsule 2020-02-28 00:00:00 Yes .4mg QD Take 0.4 mg by mouth daily. [facility] KLOR-CON 10 10 mEq CR tablet 2020-01-29 00:00:00 Yes 10meq Take 10 mEq by mouth daily with breakfast. [facility] carvediloL (COREG) 12.5 MG tablet 2020-01-05 00:00:00 Yes TAKE ONE TABLET BY MOUTH TWICE A DAY FOR 90 DAYS [facility] pravastatin (PRAVACHOL) 40 MG tablet 2020-01-05 00:00:00 Ye s 40mg QD Take 40 mg by mouth daily. [facility] glipiZIDE (GLUCOTROL XL) 10 MG 24 hr tablet 2019-12-28 00:00:00 Yes 10mg Q.5D Take 10 mg by mouth 2 (two) times daily. [facility] metFORMIN (GLUCOPHAGE) 1000 MG tablet 2019-12-28 00:00:00 Yes 1000mg Q.5D Take 1,000 mg by mouth 2 (two) times daily. [facility] pioglitazone (ACTOS) 30 MG tablet 2019-12-28 00:00:00 Yes 30mg QD Take 30 mg by mouth daily. [facility] Minocycline Hcl Minocycline Hcl 2019-08-08 08:14:00 2020-03-29 00:00:00 No 100 Every 12 Hours [facility] Aspirin Aspirin Yes 81 Daily [facility] Carvedilol Carvedilol Yes 12.5 Twice A Day [facility] Cyanocobalamin (Vitamin B-12) (Vitamin B-12) 1,000 Mcg TABLET.ER Cyanocobalamin (Vitamin B-12) (Vitamin B-12) 1,000 Mcg TABLET.ER Yes 1000 Daily [facility] Finasteride Finasteride Yes 5 Daily [facility] Glipizide (Glipizide Xl) 10 Mg TAB.OSM.24 Glipizide (G lipizide Xl) 10 Mg TAB.OSM.24 Yes 10 Twice A Day [facility] Hydralazine Hcl Hydralazine Hcl Yes 25 Twice A Day [facility] Metformin Hcl Metformin Hcl Yes 1000 Twice A Day [facility] Mu-Vits-Min Th/Lycopene/Lutein (Centrum Silver Tablet) 1 Each TABLET Mu-Vits-Min Th/Lycopene/Lutein (Centrum Silver Tablet) 1 Each TABLET Yes Daily [facility] Potassium Chloride (Klor-Con 10) 10 Meq TABLET.ER Pota ssium Chloride (Klor-Con 10) 10 Meq TABLET.ER Yes 10 Daily [facility] Pravastatin Sodium Pravastatin Sodium Yes 40 Be dtime [facility] Tamsulosin Hcl (Flomax*) 0.4 Mg CAP Tamsulosin Hcl (Flomax*) 0.4 Mg C AP Yes .4 Daily [facility] Torsemide Torsemide Yes 20 Twice A Day [facility] Pioglitazone Hcl (Pioglitazone) 30 Mg TABLET Pioglitaz one Hcl (Pioglitazone) 30 Mg TABLET 2020-04-07 00:00:00 No 10 Daily [facility] Amlodipine Besylate Amlodipine Besylate 2020-03-29 00:00:00 No 10 Daily [facility] Carvedilol Carvedilol 2020-03-29 00:00:00 No 3.125 Tw ice A Day [facility] Furosemide Furosemide 2020-03-29 00:00:00 No [address] [place] [facility] Lisinopril/Hydrochlorothiazide (Lisinopril-Hctz 20-12. 5 Mg Tab) 1 Each TABLET Lisinopril/Hydrochlorothiazide (Lisinopril-Hctz 20-12.5 Mg Tab) 1 Each TABLET 2020-03-29 00:00:00 No 1 Daily [facility] Pioglitazone Hcl Pioglitazone Hcl 2020-03-29 00:00:00 No [address] [facility] Vital Signs Vital Name Observation Time Observation Value Comments Source Body Temperature 2020-04-07 15:00:00 98.2 [degF] [facility] Weight 2020-04-04 16:55:00 244 [lb_av] [facility] BMI (Body Mass Index) 2020-04-04 16:55:00 29.7 kg/m2 [facility] Systolic blood pressure 2020-03-23 09:14:00 148 mm[Hg] [facility] Diastolic blood pressure 2020-03-23 09:14:00 52 mm[Hg] [facility] Heart rate 2020-03-23 09:14:00 88 /min [facility] Body height 2020-03-23 09:14:00 193 cm [facility] Body weight Measured 2020-03-23 09:14:00 112.492 kg [facility] BMI 2020-03-23 09:14:00 30.19 kg/m2 [facility] Procedures Procedure Date / Time Performed Performing Clinician [facility] Computed tomography of chest without contrast 2020-02-23 00:00:0 0 [facility] Thoracentesis with ultrasound guidance 2020-02-23 00:00:00 [facility] Thoracentesis with ultrasound guidance 2020-02-10 00:00:00 [facility] X-ray of chest, single view 2020-02-10 00:00:00 [facility] X-ray of chest, two views 2019-09-19 00:00:00 CAROLE TRISTAN CH I [facility] INSERTION OF DEFIB LEAD INTO L VENTRICLE, PERC APPROACH 00:00:00 [facility] INSERT CARD RSYNC DEFIB PULS GEN IN CHEST SUBCU/FASCIA , OPEN 2019-08-07 00:00:00 [facility] REMOVE CARD RHYTHM DEV FROM TRUNK SUBCU/FASCIA, OPEN 2019-08-07 00:00:00 [facility] X-ray of chest, two views 2019-08-05 00:00:00 FRANCESCO JIMENEZ [facility] Plan of Care Planned Activity Planned Date Details Comments Source Future Scheduled Test 2020-08-25 00:00:00 PNEUMOCOCCAL 65+ L OW/MEDIUM RISK (2 of 2 - PCV13) [code = PNEUMOCOCCAL 65+ LOW/MEDIUM RISK (2 of 2 - PCV13)] [facility] Future Scheduled Test 2020-07-26 00:00:00 INFLUENZA VACCINE (#1) [code = INFLUENZA VACCINE (#1)] [facility] Encounters Start Date/Time End Date/Time Encounter Type Admission Type Att[facility] Care Department Encounter ID Source 2020-04-04 15:50:00 2020-04-07 17:51:00 Discharged Inpatient [address] [facility] [id number] [facility] 2020-02-23 09:01:00 2020-02-23 09:01:00 Registered Clinic 3 [facility] [id number] [facility] 2020-02-10 10:11:00 2020-02-10 10:11:00 Registered Clinic 3 [facility] [id number] [facility] 2019-09-18 21:10:00 2019-09-19 17:08:00 Discharged Inpatient (obs) [address] [facility] [id number] [facility] 2019-08-06 09:06:00 2019-08-08 14:32:00 Discharged Inpatient [address] [facility] [id number] [facility] Results Test Description Test Time Test Comments Results Result Comments Source - CT HEAD/BRAIN W/O CONT 2020-04-21 12:14:00 N sara: JESSICA LANDRY [facility] : 1930 Age/S: 89 / M [address] [facility] Unit #: [id number] Loc: [place] [address] Phys: Charo Grajeda MD Acct: [id number] Dis Date: Status: REG CLI PHONE #: [phone] Exam Date: 04/21/2020 1109 FAX #: [phone] Reason: LUNG CANCER EXAMS: CPT CODE: [id number] CT HEAD/BRAIN W/O CONT 07417 HISTORY: LUNG CANCER TECHNIQUE: Noncontrast 2.[address] of the head. Examination acquired within 24 hours of arrival. Automated exposure control for dose reduction. COMPARISON: Noncontrast CT brain October 25, 2009 FINDINGS: No lacerations or contusions of the scalp or facial soft tissues. Calvarium and skull base are intact. No acute hemorrhage. No intracranial mass, mass effect, or midline shift. No effacement of the sulci or page-white matter interface. 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 Cortical atrophy with ventriculomegaly is redemonstrated. Mucosal thickening is seen in the left maxillary sinus and in the ethmoid sinus. Mastoid air cells and middle ear cavities are clear. 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 IMPRESSION: No acute intracranial process. Specifically no obvious intracranial mass. The patient is unable to receive a contrast enhanced study, then a noncontrast MRI of the brain can provide further assessment. Chronic atrophic changes of the brain parenchyma and right cerebellar hemisphere infarct appear similar to the prior exam. Location: [facility] at 1214 Reported and signed by: Willian Hamilton MD CC: Charo Grajeda MD; Xuan Gaviria Technologist:Vernell JohnsonRT(R),CT CTDI: DLP: Trnscb Date/Time: 04/21/2020 (1214) [email or web address] Orig Print D/T: S: 04/21/2020 (6319) PAGE 1 Signed Report - PET/CT TUMOR SK BS MIDTH 2020-04-14 14:03:00 FAX: Charo Grajeda MD [phone] [place]: B St: REG FAX: Y Xuan Gaviria [phone] Name: JESSICA LANDRY [facility] : 1930 Age/S: 89/M [address] [facility] Unit #: [id number] Loc: [place], [place] [address] Phys: Charo Grajeda MD Acct: [id number] Dis Date: Status: REG CLI PHONE #: [phone] Exam Date: 04/14/2020 1030 FAX #: [phone] Reason: C34.90,N19 EXAMS: CPT CODE: [id number] PET/CT TUMOR SK MIDTH 37919 HISTORY: C34.90. COMPARISON: None available. Location: [facility]. PET/CT SCAN: 12.1 mCi of FDG administered. Images obtained from the skull base to the upper thighs 1 hour postinjection. Blood glucose level = 148 mg/dL. HEAD AND NECK: Intense uptake within the brain parenchyma is limiting evaluation. CHEST: Partially loculated left effusion without abnormal uptake. Well-circumscribed apical segment medial left lower lobe mass with SUV uptake ranging up to 3.2 measuring 2.4 cm is suspicious for bronchogenic carcinoma. Right middle lobe supradiaphragmatic mass measured 4.7 cm with SUV uptake ranging up to 2 is not suspicious. Small right effusion. No other parenchymal mass. 5 mm poorly defined right posterior paratracheal mediastinal lymph node with SUV uptake ranging up to 3 appears suspicious. No other pathologic hilar, mediastinal or axillary adenopathy. No chest wall uptake is noted. ABDOMEN: No hepatic or adrenal metastases. No pancreatic uptake or abnormal renal uptake. No pathologic mesenteric, retroperitoneal or retrocrural adenopathy or uptake. Excretion into the large bowel as well as the small bowel slightly limiting evaluation. Fat-containing ventral hernia at the level of the umbilicus. PELVIS: Slight excretion into the large bowel without wall thickening. Excretion into the urinary bladder. No abnormal uptake within the prostate. No pelvic pathologic adenopathy. MUSCULOSKELETAL: No metastatic disease. IMPRESSION: Well-circumscribed apical segment left lower lobe mass medially measuring 2.4 cm with SUV uptake ranging up to 3.2 is suspicious for primary bronchogenic carcinoma. Correlate with biopsy results. Right middle lobe supradiaphragmatic 4.7 cm mass with SUV uptake of 2 is not suspicious but close follow-up. Bilateral small effusions , greater on the left with no abnormal uptake. 5 mm vague noted in the posterior right paratracheal location with SUV uptake ranging up to 3 is PAGE 1 Signed Report (CONTINUED) FAX: Charo Grajeda MD [phone] [place]: St: REG FAX: Y Xuan Gaviria [phone] Name: JESSICA LANDRY [facility] : 1930 Age/S: 89/M [address] [facility] Unit #: [id number] Loc: [place] [address] Phys: Charo Grajeda MD Acct: [id number] Dis Date: Status: REG CLI PHONE #: [phone] Exam Date: 04/14/2020 1030 FAX #: [phone] Reason: C34.90,N19 EXAMS: CPT CODE: [id number] PET/CT TUMOR SK MIDTH 47002 <Continued> suspicious for metastases. No distant metastases visible. at 1403 Reported and signed by: Spike Flower M.D. CC: Charo Grajeda MD; Xuan Gaviria Technologist: YOUNG GRIJALVA Trnscrd Date/Time/By: 04/14/2020 (1403) : By: [email or web address] Orig Print D/T: S: 04/14/2020 (4486) PAGE 2 Signed Report Capillary blood glucose measurement by glucometer (mas s/volume) 2020-04-07 11:09:00 Test Item Bedside Glucose (test code = 00724-0) 138 70-120 Meter ID: [id number] [facility] SINGLE (PORTABLE)2020-04-07 06:40:00 [facility] [address] [address] Patient Name: JESSICA LANDRY MR #: [id number] : 1930 Age/Sex: 89/M Req #: [id number] Adm Physician: RUDI SUN MD Ordered by: RUDI SUN MD Report #: [id number] Location: [facility] Room/Bed: [place] [address] Procedure: [id number] DX/CHEST SING LE (PORTABLE) Exam Date: 04/07/20 Exam Time: 0545 REPORT STATUS: Signed EXAMINATION: CHEST SINGLE (PORTABLE) INDICATION: chest tube COMPARIS ON: 04/06/2020 FINDINGS: AP view TUBES and LINES: Right [facility] anical cardiac device. No chest tube is identified. LUNGS: Unchanged right lung airspace disease. Unchanged left basilar atelectasis. PLEURA: No pl eural effusion or pneumothorax. HEART AND MEDIASTINUM: Stable cardiomegaly . BONES AND SOFT TISSUES: Unchanged right chest wall subcutaneous air. UPPER ABDOMEN: No free air under the diaphragm. IMPRESSION: No interval change. No identifiable right pneumothorax status post chest tube removal. Signed by: Gus Damian MD on 04/07/2020 6:42 AM Dictated By: GUS DAMIAN MD 1 Transcribed By: GURMEET on 04/07/20641 COPY TO: RUDI SUN MD CHEST SINGLE (PORTABLE)2020-04-06 20:42:00 [facility] [address] [address] Patient Name: JESSICA LANDRY MR #: [id number] : 1930 Age/Sex: 89/M Req #: [id number] Adm Physician: RUDI SUN MD Ordered by: RUDI SUN MD Report #: [id number] Location: [facility] Room/Bed: [place] [address] Procedure: [id number] DX/CHEST SING LE (PORTABLE) Exam Date: 04/06/20 Exam Time: 2019 REPORT STATUS: Signed EXAMINATION: CHEST SINGLE (PORTABLE) INDICATION: Chest tubes removal 2 2000406 COMPARISON: 04/06/2020 FINDINGS: AP view TUBES and LINES: Stable right chest wall cardiac device. Interval removal of right chest tube. LUNGS: Lungs are well inflated. Bilateral mid to lower lung field airspace opacities. PLEURA: No visible pneumothorax. HE ART AND MEDIASTINUM: The cardiomediastinal silhouette is enlarged. BON ES AND SOFT TISSUES: No acute osseous lesion. Increased right lateral lower chest wall emphysema. UPPER ABDOMEN: No free air under the diaphragm. IMPRESSION: Interval removal of right chest tube. No visible pneumothorax. Otherwise, pulmonary status is not significantly changed from prior exam. Signed by: Dr. Uriel Salgado MD on 04/06/2020 8:44 PM Dictated By: URIEL SALGADO MD 43 Transcribed By: GURMEET on 04/06/202043 COPY TO: RUDI SUN MD CHEST SINGLE (PORTABLE)2020-04-06 09:56:00 [facility] [address] [place], [place] [address] Patient Name: JESSICA LANDRY MR #: [id number] : 1930 Age/Sex: 89/M Req #: [id number] Adm Physician: RUDI SUN MD Ordered by: RUDI SUN MD Report #: [id number] Location: [facility] Room/Bed: [place] [address] Procedure: [id number] DX/CHEST SING LE (PORTABLE) Exam Date: 04/06/20 Exam Time: 05 REPORT STATUS: Signed EXAMINATION: CHEST SINGLE (PORTABLE) INDICATION: Pleural effusion COMPARISON: Chest radiograph 04/05/2020 FINDINGS: LINES/TUBES:Unchanged right apical chest tube. Right chest pacer. EKG leads overlie the chest. LUNGS :The lungs are moderately inflated. Unchanged bibasilar airspace opacities. PLEURA:Small bilateral pleural effusions. No pneumothorax. MEDIASTINUM:C ardiomediastinal silhouette is stably enlarged. BONES/SOFT TISSUES:No acute osseous injury. Unchanged right lateral chest wall subcutaneous emphysema. ABDOMEN:No free air under the diaphragm. IMPRESSION: No significant interval change. Signed by: Ravi Aguiar MD on 04/06/2020 9:58 AM Di ctated By: RAVI AGUIAR MD Transcribed By: GURMEET on 04/06/20957 COPY TO: RUDI SUN MD CHEST SINGLE (PORTABLE)2020-04-05 09:13:00 [facility] [address] [place] [address] Patient Name: JESSICA LANDRY MR #: [id number] : 1930 Age/Sex: 89/M Req #: [id number] Adm Physician: RUDI SUN MD Ordered by: RUDI SUN MD Report #: [id number] Location: [facility] Room/Bed: [place] [address] Procedure: [id number] DX/CHEST SING LE (PORTABLE) Exam Date: 04/05/20 Exam Time: 619 REPORT STATUS: Signed EXAM: CHEST SINGLE (PORTABLE) DATE: 04/05/2020 6:20 AM INDICATION: Right pleural effusion COMPARISON: 04/04/2020 FINDINGS: Right-sided chest tube a nd right pacing device identified in stable position. Subcutaneous emphysema a gain noted along the right lateral chest wall. Stable appearing opacities again identified within the right lower lung zone which may reflect atelectasi s. Suspected trace left pleural effusion again noted. No significant residual right pleural effusion is appreciated. There is no evidence for new large foca l consolidation or pneumothorax. The cardiomediastinal silhouette is stabl e in appearance. No acute osseous abnormalities identified. IMPRESSION : No significant interval change from 04/04/2020. Signed by: Dr. Arjun flores MD on 04/05/2020 9:21 AM Dictated By: ARJUN LOPEZ MD [facility] Signed By: ARJUN LOPEZ MD on 04/05/20920 Transcribed By: GURMEET on 03/25 COPY TO: RUDI SUN MD Blood leukocytes automated count (number/volume)2020-04-05 05:30:00* Test Item Value Reference Range Interpretation Comments White Blood Count (test code = 6690-2) 9.98 4.8-10.8 [facility] (number/volume)2020-04-05 05:30:00* Test Item Value Reference Range Interpretation Comments Red Blood Count (test code = 789-8) 3.91 4.3-5.7 [facility] measurement (moles/volume)2020-04-05 05:30:00* Test Item Value Reference Range Interpretation Comments Hemoglobin (test code = 91743-0) 11.7 14.0-18.0 [facility] hematocrit (volume fraction)2020-04-05 05:30:00* Test Item Value Reference Range Interpretation Comments Hematocrit (test code = 4544-3) 36.8 38.2-49.6 [facility] eryth[facility] mean corpuscular [id number] 05:30:00* Test Item Value Reference Range Interpretation Comments Mean Corpuscular Volume (test code = 787-2) 94.1 81-99 [facility] mean corpuscular hemoglobin (mass per erythrocyte)2020-04-05 05:30:00* Test Item Value Reference Range Interpretation Comments Mean Corpuscular Hemoglobin (test code = 785-6) 29.9 28-32 [facility] eryth[facility] mean corpuscular hemoglobin concentration measurement (mass/volume)2020-04-05 05:30:00* Test Item Value Reference Range Interpretation Comments Mean Corpuscular Hemoglobin Concent (test code = 786-4) 31.8 31-35 [facility] Hospital[facility]DW [id number] 05:30:00* Test Item Value Reference Range Interpretation Comments Red Cell Distribution Width (test code = 98658-0) 13.9 11.7 -14.4 [facility] platelet count (count/volume)2020-04-05 05:30:00* Test Item Value Reference Range Interpretation Comments Platelet Count (test code = 777-3) 206 140-360 [facility] neutrophil count as percentage of total [id number] 05:30:00* Test Item Value Reference Range Interpretation Comments Neutrophils (%) (Auto) (test code = 45511-6) 75.4 38.7-80.0 [facility] lymphocyte count as percentage ot total [id number] 05:30:00* Test Item Value Reference Range Interpretation Comments Lymphocytes (%) (Auto) (test code = 736-9) 10.9 18.0-39.1 [facility] monocyte count as percentage of total [id number] 05:30:00* Test Item Value Reference Range Interpretation Comments Monocytes (%) (Auto) (test code = 5905-5) 10.9 4.4-11.3 [facility] eosinophil count as percentage of total [id number] 05:30:00* Test Item Value Reference Range Interpretation Comments Eosinophils (%) (Auto) (test code = 713-8) 2.2 0.0-6.0 [facility] basophil count as percentage of total wevmwtxzwu3677-63-11 05:30:00* Test Item Value Reference Range Interpretation Comments Basophils (%) (Auto) (test code = 706-2) 0.3 0.0-1.0 [facility] HospitalFluoroscopic procedure less than one hour [id number] 05:30:00* Test Item Value Reference Range Interpretation Comments IM GRANULOCYTES % (test code = IM GRANULOCYTES %) 0.3 0.0- 1.0 [facility] neutrophil count 2020-04-05 05:30:00* Test Item Value Reference Range Interpretation Comments Neutrophils # (Auto) (test code = 751-8) 7.5 2.1-6.9 [facility] lymphocytes count (number/volume) 2020-04-05 05:30:00* Test Item Value Reference Range Interpretation Comments Lymphocytes # (Auto) (test code = 45920-9) 1.1 1.0-3.2 [facility] automated count (number/volume)2020-04-05 05:30:00* Test Item Value Reference Range Interpretation Comments Monocytes # (Auto) (test code = 742-7) 1.1 0.2-0.8 [facility] eosinophil count 2020-04-05 05:30:00* Test Item Value Reference Range Interpretation Comments Eosinophils # (Auto) (test code = 711-2) 0.2 0.0-0.4 [facility] blood basophil count (count/volume)2020-04-05 05:30:00* Test Item Value Reference Range Interpretation Comments Basophils # (Auto) (test code = 704-7) 0.0 0.0-0.1 [facility]or[facility] procedure less than one hour mqgktycw4731-03-87 05:30:00* Test Item Value Reference Range Interpretation Comments Absolute Immature Granulocyte (auto (soraida t code = Absolute Immature Granulocyte (auto) 0.03 0-0.1 [facility] or plasma sodium measurement (moles/volume)2020-04-05 05:30:00* Test Item Value Reference Range Interpretation Comments Sodium Level (test code = 2951-2) 141 136-145 [facility] or plasma potassium measurement (moles/volume)2020-04-05 05:30:00* Test Item Value Reference Range Interpretation Comments Potassium Level (test code = 2823-3) 4.2 3.5-5.1 [facility] or plasma chloride measurement (moles/volume)2020-04-05 05:30:00* Test Item Value Reference Range Interpretation Comments Chloride Level (test code = 2075-0) 104 98-107 [facility] or plasma carbon dioxide, total measurement (moles/volume)2020-04-05 05:30:00* Test Item Value Reference Range Interpretation Comments Carbon Dioxide Level (test code = 2028-9) 28 22-29 [facility] or plasma anion lye6487-09-60 05:30:00* Test Item Value Reference Range Interpretation Comments Anion Gap (test code = 20762-8) 13.2 8-16 [facility] or plasma urea nitrogen measurement (mass/volume)2020-04-05 05:30:00* Test Item Value Reference Range Interpretation Comments Blood Urea Nitrogen (test code = 3094-0) 22 7-26 [facility] or plasma creatinine measurement (mass/volume)2020-04-05 05:30:00* Test Item Value Reference Range Interpretation Comments Creatinine (test code = 2160-0) 1.32 0.72-1.25 [facility] or plasma urea nitrogen/creatinine mass iyblg1556-45-80 05:30:00* Test Item Value Reference Range Interpretation Comments BUN/Creatinine Ratio (test code = 3097-3) 17 6-25 [facility]ated glomerular filtration rate (GFR) wwvsheqcvawie7847-63-10 05:30:00* Test Item Value Reference Range Interpretation Comments Estimat Glomerular Filtration Rate (test code = 842801237) 51 >60 Ranges were taken from the National Kidney Disease Education Program and the [facility] literature.Reference ranges:60 or greater: Jdqrgk75-57 ( for 3 consecutive months): Chronic kidney disease 15 or less: Kidney failureMethodist TexSan HospitalGlucose nwobvogufyh6328-65-27 05:30:00* Test Item Value Reference Range Interpretation Comments Glucose Level (test code = WQC2360) 129 74-118 [facility] or plasma calcium measurement (mass/volume)2020-04-05 05:30:00* Test Item Value Reference Range Interpretation Comments Calcium Level (test code = 11189-3) 8.5 8.4-10.2 [facility])2020-04-04 16:10:00 [facility] [address] [place] [address] Patient Name: JESSICA LANDRY MR #: [id number] : 1930 Age/Sex: 89/M Req #: [id number] Adm Physician: Ordered by: RUDI SUN MD Report #: [id number] Location: OR Room/Bed: Procedure: 9224-8724 DX/CHEST SING LE (PORTABLE) Exam Date: 04/04/20 Exam Time: 1545 REPORT STATUS: Signed EXAM: CHEST SINGLE (PORTABLE) DATE: 04/04/2020 3:45 PM INDICATION: Right pleural effusion status post chest tube placement COMPARISON: 02/10/2020 FIN DINGS: Right sided pacing device identified in stable position. There has been interval placement of a right-sided chest tube. Small amount of subcutaneous and seen noted along the right chest wall. The trachea is midline. Trace residual right pleural effusion noted. A suspected trace left pleural effusion is present. Mildly increased right basilar opacities identified suggestive of atelectasis. There is no evidence for large focal consolidation or pneumothor ax. The cardiomediastinal silhouette is stable in appearance. No acute oss eous abnormality is identified. IMPRESSION: Interval placement of a right-sided chest tube without evidence for significant pneumothorax. Trace residual right pleural fluid and associated right basilar atelectasis no sheri. Signed by: Dr. Arjun Lopez MD on 04/04/2020 4:13 PM Dictated B y: ARJUN LOPEZ MD 12 Transcribed By: GURMEET on 04/04/201612 COPY TO: RUDI SUN MD Fluoroscopic procedure less than one hour fgbylkhk6734-97-64 11:21:00* Test Item Value Reference Range Interpretation Comments Coronavirus (PCR) (test code = Coronavirus (PCR)) NOT DETECTED NOTD ETECTED SARS-COV-2 (COVID19), HIGHRISK, RT-PCRNegative results do not preclude SARS-CoV- 2 infection and should not be used as the sole basis for patient management deci sions. Negative results must be combined with clinical observations, patient his tory, and epidemiological information. Optimum specimen types and timing for pea k viral levels during infections caused by SARS-CoV-2 have not been determined. Collection of multiple specimens ot types of specimens may be necessary to detec t virus. Improper specimen collection and handling, sequence variability under p rimers/probes, or organism present below the limit of detection may lead to fals e negative results. Positive and negative predictive values of testing are highl y dependent on prevalance. False negative test results are more likely when prev alence is high.The expected result is negative (not detected).The SARS-CoV-2 soraida t is intended for the qualitative detection of nucleic acid from SARS-CoV-2 in n asopharyngeal and oropharyngeal swab samples from patients who meet COVID-19 cli nical and or epidemiological criteria. For lower respiratory tract specimens, th e assay is submitted for authoriztion by FDA under an Emergency Use Authorizatio n (EUA). Testing methodology is real time RT-PCR. If received as separate collec tion devices, nasopharygeal and oropharyngeal specimens are combined for analysi s. Additional specimens may be split to a separate accession for analysi and rep orting as this test includes a single unit of service.Test results must be corre lated with clinical presentation and evaluated in the context of other laborator y and epidemiologic data. Test performance can be affected because the epidemiol ogy and clinical spectrum of infection caused by SARS-CoV-2 is not fully known. For example, the optimum types of specimens to collect and when during the cours e of infection these specimens are most likely to contain detectable viral RNA m ay not be known.This test has not been Food and Drug Administration (FDA) cleare d or approved and has been authorized by FDA under an Emergency Use Authorizatio n (EUA). The test is only authorized for the duration of the declaration that ci rcumstances exist justifying the authorization of emergency use of in vitro diag nostic tests for detection and/or diagnosis of SARS-CoV-2 under section 564(b) o f the Act, 21 U.S.C. section 360bbb-3(b)(1), unless the authorization is termina sheri or revoked sooner. [facility] are certified under the C linical Laboratory Improvement Amendments of 1988 (CLIA), 42 U.S.C. section 263a , to perform high complexity tests.Specimen sent to [facility] and testing performed by [facility] [address] [place] [address] [phone] Director: Balta Blackmon M.D.CLIA # 4 [id number] [facility] HospitalGLUBED2020-04-23 15:59:00* Test Item Value Reference Range Interpretation Comments GLUBED (test code = GLUBED) 117 mg/dL 74-106 H Performed by certified cocoa mill operator at [facility] LUNG,FKNQYG9770-45-36 14:46:00 RUN DATE: 03/17/20 [facility] PAGE 1 RUN TIME: 1446 Specimen Inqui ry RUN USER: INTERFACE PATIENT: JESSICA LANDRY ACCT #: V [id number] LOC: MISSY U #: [id number] AGE/SX: 89/M ROOM: [facility] RE03/16/20[facility] DR: Maci Morataya MD : 32 BED: A DIS: STATUS: ADM Gogo TLOC: SPEC #: [id number] RECD: 03/16/201256 STATUS: DOMENICO TRIANA #: [id number] ADRIEN: 03/16/20-[address]: Liborio Flores MD ENTERED: 03/16/20-1301 SP TYPE: LUNG BX OTHR DR: Charisma Rivera MD, David Wayne DO TUMOR REGISTRYORDERED: GROSS COPIES TO: Charisma Rivera MD [address] [place] [address] Liborio Flores MD [address] [facility] [place] [address] Xuan Gaviria DO [address] [place] [address] TUMOR REGISTRY MARKERS: INTRADEPA RTMENTAL CONSULT, MALIGNANCY PROCEDURES: GROSS (03/17/20-1012) TISSUES: LEFT LOWER LOBE OF LUNG, NOS - BX 4 ASP SLIDES CLINICAL HISTORY COL LECTION DATE: 03/16/2020 LUNG NODULE POST-OP DIAGNOSIS: ? BRONCHOGENIC C ANCER COMMENT Aggregates of malignant cells are seen in a backgrou nd of blood and the smear slides. The cells have enlarged, hyperchromatic nucl ei and variable amounts of cytoplasm. The tissue section shows desmoplastic st stefani infiltrated by irregular glandular spaces lined by malignant cells with th e same cytologic features as those seen in the cytology preparations. A pulmon rickie primary is favored. Immunoperoxidase stains will be performed to confirm p ulmonary origin and the results will be issued in an addendum. CONTINUED ON NEXT PAGE RUN DATE: 03/17/20 [facility] PAGE 2 RUN TIME: 6 Specimen Inquiry RUN USER: AIDAN MEEKS JON Pfeiffer #: [id number] PATIENT: JESSICA LANDRY #[id number] (C ontinued) COMMENT (Continued) Intra departmental consultation: DMW. FINAL DIAGNOSIS Preliminary Diagnosi s: Lung, left lower lobe nodule, needle biopsy and aspiration: ADENOCARCINOMA, FAVOR PULMONARY PRIMARY, see comment RRB/jose D 7 0047, 63684 MACROSCOPIC The specimen is designated as "LL lung". I t consists of four slides for processing. Received in formalin in a container labeled with the patient's name, and identified as "LL lung bx", are thin nee dle biopsies of ornelas-thrasher tissue measuring up to 0.4 cm in length with diameter of less than 0.1 cm. The tissue is submitted in a single cassette. GROSS PERFORMED AT [facility] [address] [place] [address] [phone])[phone] [facility] All of the stains, including any controls performed, stain appropriately . MICROSCOPIC PERFORMED AT [facility] [address] [place] [address] (P)[phone] PER FORMING SITE Diagnosis performed at: [facility] [place] [address] [place], [place] [address] CONTINUE D ON NEXT PAGE RUN DATE: 03/17/20 [facility] PAGE 3 RUN TIME: 1446 Specimen Inquiry RUN USER: INTERFACE SPEC #: [id number] JORDIN ENT: JESSICA LANDRY #[id number] (Continued) ----- ------- Signed SIGNATURE ON FILE Angel Valentine MD 02/24 02/11 1446 END OF REPORT LUNG,HWLURS4607-16-94 14:46:00 RUN DATE: 03/18/20 [facility] [facility] PAGE 1 RUN TIME: 1719 Specimen Inqui ry RUN USER: INTERFACE PATIENT: JESSICA LANDRY ACCT #: V [id number] LOC: MISSY U #: [id number] AGE/SX: 89/M ROOM: [facility] RE03/16/20REG DR: Maci Morataya MD : 32 BED: A DIS: 03/17/20 STATUS: DIS Gogo TLOC: SPEC #: [id number] RECD: 03/16/20-125 STATUS: DOMENICO REQ #: [id number] ADRIEN: 03/16/20-[address]: Liborio Flores MD ENTERED: 03/16/20-2888 SP TYPE: LUNG BX OTHR DR: Charisma Rivera MD, David Wayne DO TUMOR REGISTRYORDERED: GROSS COPIES TO: Charisma Rivera MD [address] [place] [address] Liborio Flores MD [address] [place] [address] EveretteXuan lazo DO [address] [place] [address] TUMOR REGISTRY MARKERS: INTRADEPA RTMENTAL CONSULT, MALIGNANCY PROCEDURES: GROSS (03/17/20-1012) TISSUES: LEFT LOWER LOBE OF LUNG, NOS - BX 4 ASP SLIDES ADDENDUM FINDINGS Mike jimenez #1 Entered: 03/18/20 Paraffin embedded tissue was submit sheri to [facility] for confirmatory immunoperoxidase stains and the slides are reviewed at [facility]. The controls stain appropriately . The malignant cells are shown to be strongly and diffusely positive for CK7 and TTF-1 and are negative for CK20. 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 Tissue remains in the paraffin bloc k for ancillary studies. The revised diagnosis is as follows: Lung, left lo wer lobe nodule, needle biopsy and aspiration: PULMONARY ADENOCARCINOMA, A CINAR PATTERN, see above CONTINUED ON NEXT PAGE RUN DATE: 03/18/20 [facility] PAGE 2 RUN TIME: 1719 Specim en Inquiry RUN USER: INTERFACE SPEC #: [id number] PATIENT: JESSICA PERES #[id number] (Continued) ADDENDUM FINDINGS (Continued) Hugo Dietrich [id number], [id number] Addendum Signed SIGNATURE ON FILE Angel Valentine MD 03/18/20 1719 CLINICAL HISTORY COLLECTION DATE: 03/16/2020 LUNG NODULE POST- OP DIAGNOSIS: ? BRONCHOGENIC CANCER COMMENT Aggregates of maligna nt cells are seen in a background of blood and the smear slides. The cells hav e enlarged, hyperchromatic nuclei and variable amounts of cytoplasm. The tissu e section shows desmoplastic stroma infiltrated by irregular glandular spaces l ined by malignant cells with the same cytologic features as those seen in the cy tology preparations. A pulmonary primary is favored. Immunoperoxidase stains will be performed to confirm pulmonary origin and the results will be issued in an addendum. Intradepartmental consultation: DMW. FINAL DIAGNO SIS Preliminary Diagnosis: Lung, left lower lobe nodule, needle biopsy and aspiration: ADENOCARCINOMA, FAVOR PULMONARY PRIMARY, see comment JEREMIAH/jose Dietrich 436[address], 15387 MACROSCOPIC The specimen is designated as "LL lung". It consists of four slides for processing. Received in formalin in a container labeled with the patient's name, and identified as "LL lung bx", are thin needle biopsies of ornelas-thrasher tissue measuring up to 0.4 cm in length with diameter of less than 0.1 cm. The tissue is submitted in a single cassette. GROSS PERFORMED AT [facility] CONTINUED ON NEXT PAGE RUN DATE: 03/18/20 [facility] PAGE 3 RUN TIME: 1719 Specim en Inquiry RUN USER: INTERFACE SPEC #: [id number] PATIENT: JESSICA PERES #[id number] (Continued) MACRO SCOPIC (Continued) [address] [facility] [place] [address] (P )[phone] MICROSCOPIC All of the stains, including any controls performed, stain appropriately. MICROSCOPIC PERFORMED AT [facility] [address] [facility] [address] [phone])[phone] PERFORMING SITE Diagnosis performed at: [facility], [place] [address] [facility] [place] [address] S igned SIGNATURE ON FILE Angel Valentine MD 03/17/20 1446 END OF REPORT LUNG,[id number] 14:46:00 RUN DATE: 07/13/20 [facility] PAGE 1 RUN TIME: 1552 Specimen Inqui ry RUN USER: INTERFACE PATIENT: JESSICA LANDRY ACCT #: V [id number] LOC: MISSY U #: [id number] AGE/SX: 89/M ROOM: [facility] RE03/16/20[facility] DR: Maci Morataya MD : 32 BED: A DIS: 03/17/20 STATUS: DIS Gogo TLOC: SPEC #: [id number] RECD: 03/16/20-1256 STATUS: DOMENICO TRIANA #: [id number] ADRIEN: 03/16/20-[address]: Liborio Flores MD ENTERED: 03/16/20-1301 SP TYPE: LUNG BX OTHR DR: Charisma Rivera MD, David [facility] TUMOR REGISTRYORDERED: GROSS COPIES TO: Charisma Rivera MD [address] [place] [address] Liborio Flores MD [address] [place], [place] [id number] Xuan Gaviria [facility] [address] [place] [address] TUMOR REGISTRY MARKERS: INTRADEPA RTMENTAL CONSULT, MALIGNANCY PROCEDURES: GROSS (03/17/20-1012) TISSUES: LEFT LOWER LOBE OF LUNG, NOS - BX 4 ASP SLIDES ADDENDUM FINDINGS Adden dum #2 Entered: 07/13/20-1552 Per the request of Dr. Navas, bony ial was sent to [facility] for additional studies and wayne ospina results are as follows: Molecular Repo rt BRAF Mutation: No Result. See Below. EGF R Mutation: No Result. See Below. MARCIAL UED ON NEXT PAGE RUN DATE: 07/13/20 [facility] PAGE 2 RUN TIME: 1552 Specimen Inquiry RUN USER: INTERFACE SPEC #: [id number] MEJÍANT: JESSICA LANDRY #[id number] (Continued) ADDENDUM FINDINGS (Continued) INTERPRETATION BRAF Mutation Analysis: No Result. See Below. Interpre tation: There was insufficient tumor available for nucleic acid isolation an d analysis. A minimum of 20% tumor content in the specimen is required. If cli nically appropriate, recommend recollection and resubmission or identification o f an alternate specimen. Specimen Source: Lung, left lower lobe nodule Martin ginal Accession Number: [id number] EGFR Mutation Analysis: No Result. See B mauricio. Interpretation: There was insufficient tumor available for nucleic acid isolation and analysis. A minimum of 20% tumor content in the specimen is required. If clinically appropriate, recommend recollection and resubmission or identification of an alternate specimen. Specimen Source: Lung, left lower lobe nodule Original Accession Number: [id number] Gail Hand DO electronically signed 07/07/2020 4:02:16 PM METHODOLOGY REFERENCES Procedure: Lung, left lower lobe nodule, needle biopsy and aspiration, Procedure date: 03/16/20, Original acce ssion number: [id number] Clinical History: Adenocarcinoma, favor pulmonary primary. Technical services provided by [facility], [facility], d/b/a Jocelyn, [address] [place] [address] , Melinda M, [place] [address], Gail tejada DO, [employer] Inspector. Case reviewed and diagnosis rendered at [facility], [facility], d/b/a Jocelyn, [address] [place] [address] , [place] [address], Gail Hand DO, [employer] Inspector. Continuation of Report CONTINUED ON NEXT PAGE RUN DATE: 07/13/20 [facility] PAGE 3 RUN TIME: 1552 Specimen Inquiry RUN USER: INTERFACE SPEC #: [id number] PATIENT: JESSICA LANDRY #[id number] (Continued)--------- --- ADDENDUM FINDINGS (Continued) Specimen List: Lung, left l ower lobe nodule, needle biopsy and aspiration, Procedure date: 03/16/20, Origin al accession number: [id number] Technical services provided by [facility], [facility] [address] [place] [address] Stacy Chandler, [place] [address], Gail Hand DO, [employer] Inspector. Case reviewed and diagn osis rendered at [facility], CEL[facility], d/b/a Isabel[address] alejandro Chandler, [place] [address], Gail Hand DO, Laboratory [facility]. FISH Report INTERPRETATION Lung, left lower lobe nodule, needle biopsy and aspiration, [id number]: - Unable to perform ALK, ROS1, MET, R ET, and HER2 FISH testing. COMMENTS: Lung, left lower lobe nodule, needle biopsy and aspiration, [id number]: Sli priscila were reviewed by an in-house pathologist. There was insufficient tissue to perform fluorescence in situ hybridization (FISH) studies. Gail jules DO electronically signed 07/07/2020 4:01:41 PM TECHNICAL RESULTS SPECIMEN INFORMATION This test was developed and its performance characteristics determined by [facility] d/b/a [facility], as required by the CLIA '88 regulations. It has not been cleared or approved for specific uses by the U.S. Food and Drug Administration. The FDA has determined that such clearance or approval is not necessary. This test is us ed for clinical diagnostic purposes. It should not be regarded as investigation al or for research. Performance characteristics refer to the analytical perform ance of the test. Procedure: Lung, left lower lobe nodule, needle biopsy an d aspiration, Procedure date: 03/16/20, Original accession number: [id number] Clinical History: Adenocarcinoma, favor pulmonary primary. CONTINUED ON NEXT PAGE RUN DATE: 07/13/20 [facility] PAGE 4 RUN TIME: 1552 Specimen Inquiry RUN USER: IN GRISELDA SP EC #: [id number] PATIENT: JESSICA LANDRY #[id number] ( Continued) ADDENDUM FINDINGS (Continued) Specimen List: Lung, left lower lobe nodule, needle biopsy and aspiration, Procedure jaya e: 03/16/20, Original accession number: [id number] Technical services provi ded by [facility], [facility], [facility]a [facility], [address] [place] [address] , [place] [address], Chivo Hodge MD, [employer] Inspector. Case reviewed and di agnosis rendered at [facility], [facility], d/b/a [facility], [address] [place] [address] , [address], [place] [address], Gail Hand DO, Laboratory Di merry. Addendum Signed SIGNATURE ON FILE Angel Valentine MD 1552 Addendum #1 Entered: 03/18/20-6294 Paraf fin embedded tissue was submitted to [facility] for confirmatory immunoperoxida se stains and the slides are reviewed at [facility]. The controls stain appropriately. The malignant cells are shown to be strongly and diffusely positive for CK7 and TTF-1 and are negative for CK20. This staining pattern supports the diagnosis of adenocarcinoma of pulmonary origin. Tissue remains in the paraffin block for ancillary studies. The revised diagnosis is as follows: Lung, left lower lobe nodule, needle biopsy and aspiration: PULMONARY ADENOCARCINOMA, ACINAR PATTERN, see above RRB/jose D 11232, 81601x3 Addendum Signed SIGNATURE ON FILE Angel Valentine MD 1719 CLINICAL HISTORY COLLECTION DATE: 0 LUNG NODULE POST-OP DIAGNOSIS: ? BRONCHOGENIC CANCER CONTINUED ON NEXT PAGE RUN DATE: 07/13/20 [facility] PAGE 5 RUN TIME: 1552 Specimen Inquiry RUN USER: INTERFACE SPEC #: [id number] PATIENT: JESSICA LANDRY LOUANN #[id number] (Continued) COMMENT Aggregates of malignant cells ar e seen in a background of blood and the smear slides. The cells have enlarged, hyperchromatic nuclei and variable amounts of cytoplasm. The tissue section s hows desmoplastic stroma infiltrated by irregular glandular spaces lined by mal ignant cells with the same cytologic features as those seen in the cytology pre parations. A pulmonary primary is favored. Immunoperoxidase stains will be pe rformed to confirm pulmonary origin and the results will be issued in an addendu m. Intradepartmental consultation: DMW. FINAL DIAGNOSIS Prel iminary Diagnosis: Lung, left lower lobe nodule, needle biopsy and aspira tion: ADENOCARCINOMA, FAVOR PULMONARY PRIMARY, see comment RRB/jose D 49572, 69463 MACROSCOPIC The specimen is designated as "LL lung". It consists of four slides for processing. Received in [facility] n in a container labeled with the patient's name, and identified as "LL lung b x", are thin needle biopsies of ornelas-thrasher tissue measuring up to 0.4 cm in liss th with diameter of less than 0.1 cm. The tissue is submitted in a single tj ette. GROSS PERFORMED AT [facility] [address] [place] [address] (P)[phone] MICROSCOPIC All of the stains, including any controls performed, sta in appropriately. MICROSCOPIC PERFORMED AT [facility] [address] [place] [address] (P) CONTINUED ON NEXT PAGE -RUN DATE: 07/13/20 [facility] PAGE 6 RUN TIME: 1552 Specimen Inquiry RUN USER: INTERFACE SPEC #: [id number] PATIENT: JESSICA LANDRY #[id number] (Continued) PERFORMING SITE Diagno sis performed at: [facility], [place] [address] [place] [address] Signed SIGNATURE ON FILE Angel Reis MD 03/17/20 1446 END OF REPORT - XR CHEST 1 [id number] 14:29:00 FAX: Charisma Garcia MD [phone] [place]: B St: ADM FAX: Liborio Fall MD [phone] FAX: Maci Jay MD FAX: Xuan Kevin [phone] Name: JESSICA LANDRY [facility] : 1930 Age/S: 89/M [address] Unit #: [id number] Loc: V.[address] [place] [address] Phys: Liborio Flores MD Acct: [id number] Dis Date: Status: ADM IN PHONE #: [phone] Exam Date: 03/17/2020 1329 FAX #: [phone] Reason: CHECK PNEUMO EXAMS: CPT CODE: [id number] XR CHEST 1 V 97908 REASON FOR EXAM: CHECK PNEUMO EXAM ORDER DATE: 03/17/2020 1:00 PM Ordering: Liborio Flores MD Attending:Maci Morataya MD Location:[facility] PROCEDURE: - XR CHEST 1 V COMPARISON: 03/17/2020 at 10:06 AM FINDINGS: Portable AP frontal view of the chest obtained at 1:30 PM shows clear lungs without evidence of consolidation. The heart size is within normal limits. Pulmonary vasculatures are unremarkable. IMPRESSION: No interval change of the right pneumothorax most likely due to trapped lung. Interval reaccumulation of the right effusion at the right lung base at 1429 Reported and signed by: Liborio Flores M.D. CC: Charisma Rivera MD; Liborio Flores MD; Maci Morataya MD; Xuan Gaviria Technologist: RT CATALINA(R) Trnscrd Date/Time/By: 03/17/2020 (142) : By: Donita Orig Print D/T: S: 03/17/2020 (1661) PAGE 1 Signed Report [id number] 11:56:00* Test Item Value Reference Range Interpretation Comments GLUBED (test code = GLUBED) 181 mg/dL 74-106 H Performed by certified cocoa mill operator at [facility] - SP THORACENTESIS [id number] 11:35:00 Name: JESSICA LANDRY [facility] : 1930 Age/S: 89 / M [address] Unit #: [id number] Loc: [place] [address] Phys: Maci Morataya MD Acct: [id number] Dis Date: Status: ADM IN PHONE #: [phone] Exam Date: 03/17/2020 0954 FAX #: [phone] Reason: EXAMS: CPT CODE: [id number] SP THORACENTESIS W/IMAG 87810 Fluoro Time: DAP (Gy m2): Air Kerma (mGy): REASON FOR EXAM: Large right pleural effusion Exam order date: 03/17/2020 9:25 AM PROCEDURE: Ultrasound guided right thoracentesis Ordering: Maci Morataya MD Attending:Maci Morataya MD Location:[facility] CPT code: 42216, 89136 FINDINGS: Prior to the procedure, informed consent was obtained after risks and benefits of the procedure were explained to the patient. The patient agreed and wanted to proceed. The patient was brought to special procedures. The back was prepped and draped in the usual fashion. All elements of maximal sterile techniques were followed. Ultrasound was first used for assessment of the effusion. US s hows large right effusion. Images of the effusion were submitted to PACS. 2% local lidocaine was given for local anesthetic. Under real time ultra sound guidance, a micropuncture needle was advanced into the right thoraci c cavity. A guide wire was inserted and an 8 Fr catheter was inserted in the thoracic cavity. 3.6 L of fluid obtained. The catheter was removed and hemostasis obtained. MEDICATIONS: None COMPLIC ATIONS: No immediate. Blood loss: less than 5cc IM PRESSION: 3.6 L of fluid removed from the right thoracic cavity. Iris ctronically Signed by Axel Flores on 03/17/2020 at 1135 Reported and signed by: Liborio Flores M.D. CC: Charisma Rivera MD; Liborio Flores MD; Maci Morataya MD; Xuan Gaviria Technologist: Mercedes Baltazar RT(R) Trnscb Date/Time: 03/17/2020 (8310) t.SDR.VTL Orig Print D/T: S: 03/17/2020 (8358) PAGE 1 Signed Report - XR CHEST 1 [id number] 10:25:00 FAX: Charisma Garcia MD [phone] [place]: St: ADM FAX: Liborio Fall MD [phone] FAX: Maci Jay MD FAX: Xuan Kevin [phone] Name: PRES MARTIN LANDRY [facility] : 1930 Age/S: 89/M [address] [facility] Unit #: [id number] Loc: V.[address] [place] [address] Phys: Liborio Flores MD Acct: [id number] Dis Date: Status: ADM IN PHONE #: [phone] Exam D ate: 03/17/2020 1004 FAX #: [phone] Reason: S /P THORACENTESIS EXAMS: CPT CODE: [id number] XR CHEST 1 V 84582 HISTORY: Post thoracentesis. C OMPARISON: Chest x-ray from same day. Location: [facility]. Right ICD is unchanged. Complete resolution of the pneumothorax. Calcified granuloma in the left upper lobe. 15% pneumothorax is now noted. Dependent changes bilaterally. Cardiomegaly. IMPRESSION: 15% right pneumothorax. These findings were called to the special pr ocedures at 10:24 AM. FOR INTERNAL CODING P URPOSES ONLY RESULT CODE: CVR at 1026 Repor sheri and signed by: Spike Flower M.D. CC: Charisma Rivera; Liborio Flores MD; Maci Morataya MD; Xuan Gaviria Technologist: GISELE AGUILAR JR Trntnrd Date/Time/By: 03/17/2020 (7057) : By: [email or web address] Orig Print D/T: S: 03/17/2020 (9582) PAGE 1 Signed Report - XR CHEST 1 V 2020-03-17 10:00:00 FAX: Charisma Garcia MD [phone] [place]: St: ADM FAX: Liborio Fall MD [phone] FAX: Maci Jay MD FAX: Xuan Kevin [phone] Name: PRES MARTIN LANDRY [facility] : 1930 Age/S: 89/M [address] [facility] Unit #: [id number] Loc: V.[address] [place] [address] Phys: Liborio Flores MD Acct: [id number] Dis Date: Status: ADM IN PHONE #: [phone] Exam D ate: 03/17/2020 0958 FAX #: [phone] Reason: P OST THORACENTESIS EXAMS: CPT CODE: [id number] XR CHEST 1 V 64480 HISTORY: Post thoracentesis. C OMPARISON: Previous day. Location: [facility]. Right ICD is unchanged. Right pigtail catheter is new with marked complete res olution of the large right effusion with right basal dependent changes and patchy infiltrate. Left lower lobe dependent changes as well. Lung scarri ng and bullous changes in the upper lobes. Cardiomegaly. I MPRESSION: Near complete resolution of the large right effusio n after thoracentesis and low-lying chest tube placement. Patchy left ba иван infiltrate with dependent changes. COPD. at 1000 Report ed and signed by: Spike Flower M.D. CC: Charisma Rivera MD; Liborio Florse MD; Maci Morataya MD; Xuan Gaviria Technologist: RT Autumn(Shamir) Trnscrd Date/Time/By: 03/17/2020 (1000) : By: [email or web address] Orig Print D/T: S: 03/17/2020 (1004) PAGE 1 Signed Report BASIC METABOLIC [id number] 09:09:00* Test Item Value Reference Range Interpretation Comments SODIUM (test code = NA) 145 mmol/L 136-145 N POTASSIUM (test code = K) 4.1 mmol/L 3.5-5.1 N CHLORIDE (test code = CL) 107.0 mmol/L 98-107 N CARBON DIOXIDE (test code = CO2) 30.0 mmol/L 21-32 N ANION GAP (test code = GAP) 12.1 10-20 N GLUCOSE (test code = GLU) 171 mg/dL 74-106 H BLOOD UREA NITROGEN (test code = BUN) 24 mg/dL 7-18 H GLOMERULAR FILTRATION RATE (test code = GFR) 48 mL/min >=60 Estimated GFR by using Modified MDRD formula.Chronic kidney disease is defined as either kidney damageor GFR <60 mL/min/1.73 m2 for >3 months. CREATININE (test code = CREAT) 1.40 mg/dL 0.7-1.3 H BUN/CREATININE RATIO (test code = BUN/CREA) 17.1 10-20 N CALCIUM (test code = CA) 8.6 mg/dL 8.5-10.1 N BASIC METABOLIC [id number] 09:05:00* Test Item Value Reference Range Interpretation Comments SODIUM (test code = NA) 145 mmol/L 136-145 N POTASSIUM (test code = K) 4.1 mmol/L 3.5-5.1 N CHLORIDE (test code = CL) 107.0 mmol/L 98-107 N CARBON DIOXIDE (test code = CO2) mmol/L 21-32 ANION GAP (test code = GAP) 10-20 GLUCOSE (test code = GLU) mg/dL 74-106 BLOOD UREA NITROGEN (test code = BUN) mg/dL 7-18 GLOMERULAR FILTRATION RATE (test code = GFR) mL/min >=60 CREATININE (test code = CREAT) mg/dL 0.7-1.3 BUN/CREATININE RATIO (test code = BUN/CREA) 10-20 CALCIUM (test code = CA) mg/dL 8.5-10.1 [id number] 08:07:00* Test Item Value Reference Range Interpretation Comments GLUBED (test code = GLUBED) 102 mg/dL 74-106 N Performed by certified cocoa mill operator at [facility] [id number] 20:28:00* Test Item Value Reference Range Interpretation Comments GLUBED (test code = GLUBED) 135 mg/dL 74-106 H Performed by certified cocoa mill operator at [facility] - XR CHEST 1 [id number] 13:18:00 FAX: Charisma Garcia MD [phone] [place]: St: REG FAX: Liborio Fall MD [phone] FAX: Xuan Kevin [phone] Name: JESSICA LANDRY [facility] : 1930 Age/S: 89/M [address] [facility] Unit #: [id number] Loc: [place] [address] Phys: Liborio Flores MD Acct: [id number] Dis Date: Status: REG [facility] PH ONE #: [phone] Exam Date: 03/16/2020 1309 FAX #: [phone] Reason: S/P LUNG BIOPSY EXAMS: CPT CODE: [id number] XR CHEST 1 V 96723 HISTORY: Post lung biopsy. COMPARISON: Chest x-ray from February 10, 2020. Location: [facility]. No pneumothorax is visible after left lower l obe lung biopsy. The left lower lobe mass is not visible. Large right effu kelechi with compressive right lower lobe atelectasis and shift the mediastin um towards the left. Cardiomegaly. Right ICD with the leads in the right a trium and right ventricle. IMPRESSION: N o pneumothorax visible after left lower lobe lung biopsy. Electronic ally Signed by Axel Flower on 03/16/2020 at 1318 R eported and signed by: Spike Flower M.D. CC: Charisma Rivera MD; Liborio Flores MD; Xuan Gaviria Technologist: SUZAN COX, RT(R); Leatha Araya(R) Trnscrd Date/Time/By: 03/16/2020 (1318) : By: wayne [email or web address] Orig Print D/T: S: 03/16/2020 (1046) PAGE 1 Signed Report - CT GUID [facility] [id number] 11:53:00 Name: JESSICA LANDRY [facility] : 1930 Age/S: 89 / M [address] [facility] Unit #: [id number] Loc: [facility] [place] [address] Phys: Liborio Flores MD Acct: [id number] Dis Date: Status: [facility] PHONE #: [phone] Exam Date: 03/16/2020 1130 FAX #: [phone] Reason: BIOPSY EXAMS: CPT CODE: [id number] CT [facility] [address] REASON FOR EXAM: Left lower lobe lung lesion. PROCEDURE: CT-guided core biopsy of left lower lobe lung lesion Referring physician: Dr. Suresh Rivera Location:[facility] Twse-ap-duxh procedure time is approximately: 1 hour FINDINGS: After informed consent was obtained, the patient was brought to CT and placed prone on the table. All elements of maximal sterile barrier technique were followed. Prior to the biopsy, axial images of the lower chest were obtained without intravenous contrast. Images of the CT were reviewed and the left lower lobe lung lesion was localized. A safe pathway was found between the subcutaneous entry site and the left lower lobe lung lesion. The access site was prepped and draped in the usual sterile fashion. The biopsy was difficult due to patient unable to take a consistent breath-hold. After multiple attempts, a guiding needle was advanced into left lower lobe lung lesion. Multiple core biopsies were then performed using a 20-gauge biopsy gun. Samples were submitted for cytology . The needle was removed and hemostasis obtained. MEDICATIONS: 1mg versed 25mcg fentanyl COMPLICATIONS: No immediate Blood loss: Less than 5 mL Fluoroscopic dose:1640 mGy IMPRESSION: Technically successful CT-guided biopsy of left lower lobe lung lesion. at 1153 Reported and signed by: Liborio hyde M.D. PAGE 1 Signed Report (CONTINUED) Name: JESSICA LANDRY [facility] : 1930 Age/S: 89 / M [address] [facility] Unit #: [id number] [place] [address] Phy s: Liborio Flores MD Acct: [id number] Dis Date: Status: REG [facility] PHONE #: [phone] Exam Date: 03/16/2020 1130 FAX #: [phone] Reason: BIOPSY EXAMS: CPT CODE: [id number] CT GUID [facility] [address] <Continued> CC: Charisma Rivera MD; Liborio Flores MD; Xuan Gaviria Technologist:Vernell Johnson,RT(R),CT CTDI: DLP: Trnscb Date/Time: 03/16/2020 (1153) t.DWIGHTR.VTL Orig Print D/T: S: 03/16/2020 (9797) PAGE 2 Signed Report [id number] 10:20:00* Test Item Value Reference Range Interpretation Comments GLUBED (test code = GLUBED) 155 mg/dL 74-106 H Performed by certified cocoa mill operator at [facility] PROTHROMBIN [id number] 09:55:00* Test Item Value Reference Range Interpretation Comments PROTHROMBIN TIME PATIENT (test code = PTP) 12.2 seconds 9.0-14.0 N INTERNATIONAL NORMAL RATIO (test code = INR) 1.0 0.8-1.2 N The therapeutic range for oral anticoagulant therapy formost indications is an international normalized ratio (INR)of between 2.0 and 3.0. The recommended therapeutic INRrange for various clinical situations is listed below: Clinical Situation INR range Pulmonary e mbolism treatment (2.0-3.0)Venous thrombosis treatmentVenous thrombosis prophylaxis (high risk surgery)Prevention of systemic embolism from: Acute myocardial infarction Valvular heart disease Atrial fibrillation Mechanical prosthetic heart valves (2.5-3.5) IS PATIENT ON ANTICOAGULANTS? NTHROMBOPLASTIN TIME [id number] 09:55:00* Test Item Value Reference Range Interpretation Comments THROMBOPLASTIN TIME PARTIAL (test code = PTT) 27.4 seconds 23.0-37. 0 N IS PATIENT ON ANTICOAGULANTS? NPROTHROMBIN [id number] 09:54:00* Test Item Value Reference Range Interpretation Comments PROTHROMBIN TIME PATIENT (test code = PTP) 12.2 seconds 9.0-14.0 N INTERNATIONAL NORMAL RATIO (test code = INR) 1.0 0.8-1.2 N The therapeutic range for oral anticoagulant therapy formost indications is an international normalized ratio (INR)of between 2.0 and 3.0. The recommended therapeutic INRrange for various clinical situations is listed below: Clinical Situation INR range Pulmonary e mbolism treatment (2.0-3.0)Venous thrombosis treatmentVenous thrombosis prophylaxis (high risk surgery)Prevention of systemic embolism from: Acute myocardial infarction Valvular heart disease Atrial fibrillation Mechanical prosthetic heart valves (2.5-3.5) IS PATIENT ON ANTICOAGULANTS? NTHROMBOPLASTIN TIME [id number] 09:54:00* Test Item Value Reference Range Interpretation Comments THROMBOPLASTIN TIME PARTIAL (test code = PTT) seconds 23.0-37. 0 IS PATIENT ON ANTICOAGULANTS? NCBC W/AUTO [id number] 09:52:00* Test Item Value Reference Range Interpretation Comments WHITE BLOOD CELL (test code = WBC) 9.4 K/mm3 4.5-12.5 N RED BLOOD CELL (test code = RBC) 4.19 mill/mm3 4.0-5.8 N HEMOGLOBIN (test code = HGB) 13.0 gram/dL 13.0-17.5 N HEMATOCRIT (test code = HCT) 39.6 % 42.0-52.0 L MEAN CELL VOLUME (test code = MCV) 94.5 fL 80-98 N MEAN CELL HGB (test code = MCH) 31.0 picogram 27.0-33.0 N MEAN CELL HGB CONCETRATION (test code = MCHC) 32.8 gram/dL 33.0-36. 0 L RED CELL DISTRIBUTION WIDTH (test code = RDW) 14.0 % 11.6-16. 2 N RED CELL DISTRIBUTION WIDTH SD (test code = RDW-SD) 47.8 fL 37 .0-51.0 N PLATELET COUNT (test code = PLT) 241 K/mm3 150-450 N MEAN PLATELET VOLUME (test code = MPV) 9.4 fL 6.7-11.0 N NEUTROPHIL % (test code = NT%) 73.4 % 39.0-69.0 H IMMATURE GRANULOCYTE % (test code = IG%) 0.5 % 0.0-5.0 N LYMPHOCYTE % (test code = LY%) 14.1 % 25.0-55.0 L MONOCYTE % (test code = MO%) 9.0 % 0.0-10.0 N EOSINOPHIL % (test code = EO%) 2.6 % 0.0-5.0 N BASOPHIL % (test code = BA%) 0.4 % 0.0-1.0 N NUCLEATED RBC % (test code = NRBC%) 0.0 % 0-0 N NEUTROPHIL # (test code = NT#) 6.88 K/mm3 1.8-7.7 N IMMATURE GRANULOCYTE # (test code = IG#) 0.05 x10 3/uL 0-0.03 H LYMPHOCYTE # (test code = LY#) 1.32 K/mm3 1.0-5.0 N MONOCYTE # (test code = MO#) 0.84 K/mm3 0-0.8 H EOSINOPHIL # (test code = EO#) 0.24 K/mm3 0.0-0.5 N BASOPHIL # (test code = BA#) 0.04 K/mm3 0.0-0.2 N NUCLEATED RBC # (test code = NRBC#) 0.00 K/mm3 0.0-0.1 N MANUAL DIFF REQUIRED (test code = MDIFF) NO CBC W/AUTO [id number] 09:44:00* Test Item Value Reference Range Interpretation Comments WHITE BLOOD CELL (test code = WBC) K/mm3 4.5-12.5 RED BLOOD CELL (test code = RBC) mill/mm3 4.0-5.8 HEMOGLOBIN (test code = HGB) 13.0 gram/dL 13.0-17.5 N HEMATOCRIT (test code = HCT) % 42.0-52.0 MEAN CELL VOLUME (test code = MCV) fL 80-98 MEAN CELL HGB (test code = MCH) picogram 27.0-33.0 MEAN CELL HGB CONCETRATION (test code = MCHC) gram/dL 33.0-36. 0 RED CELL DISTRIBUTION WIDTH (test code = RDW) % 11.6-16. 2 RED CELL DISTRIBUTION WIDTH SD (test code = RDW-SD) fL 37 .0-51.0 PLATELET COUNT (test code = PLT) K/mm3 150-450 MEAN PLATELET VOLUME (test code = MPV) fL 6.7-11.0 NEUTROPHIL % (test code = NT%) % 39.0-69.0 IMMATURE GRANULOCYTE % (test code = IG%) % 0.0-5.0 LYMPHOCYTE % (test code = LY%) % 25.0-55.0 MONOCYTE % (test code = MO%) % 0.0-10.0 EOSINOPHIL % (test code = EO%) % 0.0-5.0 BASOPHIL % (test code = BA%) % 0.0-1.0 NEUTROPHIL # (test code = NT#) K/mm3 1.8-7.7 LYMPHOCYTE # (test code = LY#) K/mm3 1.0-5.0 MONOCYTE # (test code = MO#) K/mm3 0-0.8 EOSINOPHIL # (test code = EO#) K/mm3 0.0-0.5 BASOPHIL # (test code = BA#) K/mm3 0.0-0.2 THORACENTESIS/IMAGE [id number] 11:01:00 [place] [address] Patient Name: JESSICA LANDRY MR #: [id number] : 1930 Age/Sex: 89/M Req #: [id number] Adm Physician: Ordered by: CHARISMA RIVERA MD Report #: [id number] Location: [place] Room/Bed: Procedure: US/T HORACENTESIS/IMAGE GUIDED Exam Date: Exam Time: REPORT STATUS: Signed PROCEDURE: U ltrasound-guided thoracentesis Procedural Personnel Attending physician(s ): CHARISMA RIVERA MD Fellow physician(s): None Resident physician(s): None A dvanced practice provider(s): None Pre-procedure diagnosis: Pleural effusio n Post-procedure diagnosis: Same Indication: Pleural effusion with compromis ed respiration Additional clinical history: None Complications: No immedi ate complications. IMPRESSION: Ultrasound-guided thoracentesis with dr judge of 1200 mL of serous fluid. Plan: Resume care by clinical team . PROCEDU RE SUMMARY: - Limited thoracic ultrasound - Ultrasound-guided thoracentesis - Additional procedure(s): None PROCEDURE DETAILS: Pre-procedure C onsent: Informed consent for the procedure including risks, benefits and alter natives was obtained and time-out was performed prior to the procedure. Prepar ation: The site was prepared and draped using maximal sterile barrier techniqu e including cutaneous antisepsis. Anesthesia/sedation Level of anesthesia /sedation: No sedation Anesthesia/sedation administered by: Not applicable T otal intra-service sedation time (minutes): NA Limited thoracic ultrasound Limited thoracic ultrasound was performed using a curved transducer. A safe window for thoracentesis was identified. Left hemithorax findings: Small pleu ral effusion Right hemithorax findings: Large pleural effusion Thoracente sis Local anesthesia was administered. The pleural space was accessed under real-time ultrasound guidance and fluid return confirmed position. The fluid was drained. The catheter was removed, and a sterile bandage was applied. Cath eter placed: 5F Tgeh Post-drainage hemithorax findings: Small pleural effusion Additional Details Additional description of procedure: None Equipment details: None Specimens removed: Pleural fluid Estimated blood loss (mL): L ess than 10 Standardized report: SIR_Thoracentesis_v3 Attestation Iva r name: Ravi Aguiar MD I attest that I was present for the entire procedure. I reviewed the stored images and agree with the report as written. Signed by: Ravi Aguiar MD on 02/23/2020 11:01 AM Dictated By: RAVI AGUIAR MD Elec tronically Signed By: RAVI AGUIAR MD on 02/23/20 1101 Transcribed By: GURMEET on 02/23/20 1101 COPY TO: CHARISMA RIVERA MD CT CHEST [id number] 10:53:00 [place] [address] Patient Name: JESSICA LANDRY MR #: [id number] : 1930 Age/Sex: 89/M Req #: [id number] Adm Physician: Ordered by: CHARISMA RIVERA MD Report #: [id number] Location: CT Room/Bed: Procedure: [id number] CT/C T CHEST WO Exam Date: 02/23/20 Exam Time: 0950 REPORT STATUS: Signed EXAM: CT Chest WITHOUT intravenous contrast 02/23/2020 9:14 AM INDICATION: Pleural effusion COMPARISON: Chest radiograph 02/10/2020 TECHNIQUE: Chest was scanned [email or web address].comi ng a multidetector helical scanner from the lung apex through the level of the adrenal glands without administration of IV contrast. Coronal and sagittal re formations were obtained. Routine protocol was performed. IV CONTRAST: No ne RADIATION DOSE: Total DLP: 575 mGy*cm. Dose modulation, iterative reconst ruction, and/or weight based adjustment of the mA/kV was utilized to reduce th e radiation dose to as low as reasonably achievable. COMPLICATIONS: None FINDINGS: LINES/ TUBES: Right chest pacer. LUNGS AND AIRWAYS: The ce ntral airways are patent. No focal consolidation or pulmonary edema. Near comp lete atelectasis of the right lower lobe and subsegmental right middle lobe at electasis. 2.6 cm left lower lobe partially spiculated pulmonary nodule. PLEURA: Moderate right pleural effusion. Small left pleural effusion. No pneu mothorax status post thoracentesis of earlier the same day. HEART AND MEDIA STINUM: Evaluation of the thyroid gland is limited by beam hardening artifact. No supraclavicular, axillary, mediastinal, or hilar lymphadenopathy. The hea rt is mildly enlarged. No pericardial effusion. Athetotic calcifications invol ve the coronary arteries, thoracic aorta, and proximal great vessels. The asc ending aorta is ectatic, measuring up to 4.6 cm. UPPER ABDOMEN: No acute findings. BONES: The visualized bony thorax is within normal limits. S OFT TISSUES: Unremarkable. IMPRESSION: 2.6 cm partially spiculated left lower lobe pulmonary nodule is concerning for primary pulmonary malignancy. Re commend image guided tissue sampling and/or PET/CT for further evaluation. Moderate right pleural effusion. Small left pleural effusion. No pneumothorax status post right thoracentesis of earlier the same day. Near complete at electasis of the right lower lobe and segmental atelectasis of the right middl e lobe. Signed by: Ravi Aguiar MD on 02/23/2020 11:00 AM Dictated By: RAVI AGUIAR MD 1100 Transc ribed By: GURMEET on 02/23/20 1100 COPY TO: CHARISMA RIVERA MD Specimen source identification of body [id number] 10:12:00* Test Item Value Reference Range Interpretation Comments Body Fluid Type (test code = 26101-1) [facility] 2020-02-23 10:12:00* Test Item Value Reference Range Interpretation Comments Body Fluid Color (test code = 6824-7) YELLOW [facility] 2020-02-23 10:12:00* Test Item Value Reference Range Interpretation Comments Body Fluid Appearance (test code = 9335-1) CLEAR [facility] body fluid leukocytes count (number/volume)2020-02-23 10:12:00* Test Item Value Reference Range Interpretation Comments Body Fluid WBC (test code = 6743-9) [address] [facility] body fluid erythrocytes count (number/volume)2020-02-23 10:12:00* Test Item Value Reference Range Interpretation Comments Body Fluid RBC (test code = 6741-3) [address] [facility] body fluid neutrophils/100 [id number] 10:12:00* Test Item Value Reference Range Interpretation Comments Body Fluid Neutrophils (test code = 38321-5) 3 [facility] lymphocyte [id number] 10:12:00* Test Item Value Reference Range Interpretation Comments Body Fluid Lymphocytes (test code = 38989557) 29 [facility] monocyte [id number] 10:12:00* Test Item Value Reference Range Interpretation Comments Body Fluid Monocytes (test code = 18863-9) 61 [facility] fluid eosinophil percentage 2020-02-23 10:12:00* Test Item Value Reference Range Interpretation Comments Body Fluid Eosinophils (test code = 10290-3) 6 [facility] other cells manual count 2020-02-23 10:12:00* Test Item Value Reference Range Interpretation Comments Body Fluid Other Cells (test code = 964257855) 1 [facility] [id number] 10:12:00* Test Item Value Reference Range Interpretation Comments Body Fluid Total Cells Counted (test code = 97060-8) 100 [facility] protein measurement (mass/volume)2020-02-23 10:12:00* Test Item Value Reference Range Interpretation Comments Body Fluid Total Protein (test code = 2881-1) 3.3 [facility] fluid lactate dehydrogenase measurement (enzymatic activity/volume)2020-02-23 10:12:00* Test Item Value Reference Range Interpretation Comments Body Fluid Lactate Dehydrogenase (test code = 848131855) 119 No reference range has been established for this specimen type.[facility] HospitalBody fluid triglyceride measurement (mass/volume) 2020-02-23 10:12:00* Test Item Value Reference Range Interpretation Comments Body Fluid Triglycerides (test code = 26858-8) 19 Not Est ab. The reference intervals and other method performancespecifications have not been established for this test. Thetest result should be integrated into the clinical contextfor interpretation.The reference interval(s) and other method performance specificationshave not been established for this body fluid. The test result must beintegrated into the clinical context for interpretation.Performed at: - [facility] [id number] Director: Jam ludwig MD, Phone: [phone] [facility] THORACENTESIS/IMAGE [id number] 13:49:00 [place] [address] Patient Name: JESSICA LANDRY MR #: [id number] : 1930 Age/Sex: 89/M Req #: [id number] [facility] Physician: Ordered by: CHARISMA RIVERA MD Report #: [id number] Location: Room/Bed: Procedure: [id number] US/T HORACENTESIS/IMAGE GUIDED Exam Date: 02/10/20 Exam T donaldo: 1119 REPORT STATUS: Signed PROCEDURE: Ultrasound-guided thoracentesis Procedural Personnel Attending physician(s): Ravi Aguiar MD Fellow physician(s): None Resident physician( s): None Advanced practice provider(s): None Pre-procedure diagnosis: Ple ural effusion Post-procedure diagnosis: Same Indication: Pleural effusion wi th compromised respiration Additional clinical history: None Complication s: No immediate complications. IMPRESSION: Ultrasound-guided thoracent esis with drainage of 1200 mL of serous fluid. Plan: Resume care by c linical team. PROCEDURE SUMMARY: - Limited thoracic ultrasound - Ultrasound-guided th oracentesis - Additional procedure(s): None PROCEDURE DETAILS: Pre-p rocedure Consent: Informed consent for the procedure including risks, benefits and alternatives was obtained and time-out was performed prior to the procedu re. Preparation: The site was prepared and draped using maximal sterile kaleb r technique including cutaneous antisepsis. Anesthesia/sedation Level o f anesthesia/sedation: No sedation Anesthesia/sedation administered by: Loki mccabe Total intra-service sedation time (minutes): NA Limited thoracic ultrasound Limited thoracic ultrasound was performed using a curved transduce r. A safe window for thoracentesis was identified. Left hemithorax findings : Small pleural effusion Right hemithorax findings: Large pleural effusion Thoracentesis Local anesthesia was administered. The pleural space was acces sed under real-time ultrasound guidance and fluid return confirmed position. The fluid was drained. The catheter was removed, and a sterile bandage was wagner lied. Catheter placed: 5F Tgeh Post-drainage hemithorax findings: Small pleu ral effusion Additional Details Additional description of procedure: None Equipment details: None Specimens removed: Pleural fluid Estimated blood loss (mL): Less than 10 Standardized report: SIR_Thoracentesis_v3 Attesta tion Signer name: Ravi Aguiar MD I attest that I was present for the entire procedure. I reviewed the stored images and agree with the report as written. Signed by: Ravi Aguiar MD on 02/10/2020 1:50 PM Dictated By: TREVIN AGUIAR MD 1350 Transcrib ed By: GURMEET on 02/10/20 1350 COPY TO: CHARISMA RIVERA MD CHEST SINGLE (NOT PORTABLE)2020-02-10 12:08:00 [place] [address] Patient Name: JESSICA LANDRY MR #: [id number] : 1930 Age/Sex: 89/M Req #: [id number] Adm Physician: Ordered by: RAVI AGUIAR MD Report #: [id number] Location: Room/Bed: Procedure: [id number] DX/CH EST SINGLE (NOT PORTABLE) Exam Date: 02/10/20 Exam T donaldo: 1150 REPORT STATUS: Signed EXAMINATION: CHEST SINGLE (NOT PORTABLE) INDICATION: Post procedural COMPARISON: Chest radiograph 09/19/2019 FINDINGS: LINES/TUBES :Right chest AICD. LUNGS:The left lung is moderately inflated. Right lung v olume is low. Mild bibasilar patchy opacities. PLEURA: No pneumothorax st atus post thoracentesis. Moderate pleural effusion. Small left pleural effusio n. MEDIASTINUM:Cardiomediastinal silhouette is stably enlarged. Atheroscler otic calcifications of the thoracic aorta. BONES/SOFT TISSUES:No acute os seous injury. ABDOMEN:No free air under the diaphragm. IMPRESSION: No pneumothorax status post right thoracentesis. Moderate right pleural effusion and small left pleural effusion. Pulmonary interstitial edema and cardiomegaly. Signed by: Ravi Aguiar MD on 02/10/2020 12:10 PM Dictat ed By: RAVI AGUIAR MD 1210 Transcribed By: GURMEET on 02/10/20 1210 COPY TO: RAVI AGUIAR MD Prothrombin time (PT) in platelet poor plasma by coagulation teian7021-18-79 10:35:00* Test Item Value Reference Range Interpretation Comments Prothrombin Time (test code = 5902-2) 15.2 11.9-14.5 [facility] HospitalINR in Platelet poor plasma by Coagulation tdkkb9743-66-41 10:35:00* Test Item Value Reference Range Interpretation Comments Prothromb Time International Ratio (test code = 6301-6) 1.13 Oral Anticoagulant Therapy INR Values:1. Low Intensity Therapy 1.5 - 2.02 . Moderate Intensity Therapy 2.0 - 3.03. High Intensity Therapy(1) 2.5 - 3. 54. High Intensity Therapy(2) 3.0 - 4.05. Panic Value INR > 5.0 [facility] HospitalActivated partial thromboplastin time (aPTT) in platelet poor plasma by coagulation cobvg7412-11-25 10:35:00* Test Item Value Reference Range Interpretation Comments Activated Partial Thromboplast Time (test code = 92157-3) 35.4 23.8-35.5 [facility] HospitalCHEST 2 [id number] 06:08:00 [place] [address] Patient Name: JESSICA LANDRY MR #: [id number] : 1930 Age/Sex: 88/M Req #: [id number] Adm Physician: FRANCESCO JIMENEZ MD Ordered by: Carole Tristan PAINTING TECHNICIAN Report #: [id number] Location: [facility] Room/Bed: [facility] Procedure: [id number] DX/CHEST 2 VIEWS Exam Date: 09/19/19 Exam Time: 1430 REPORT STATUS: Signed EXAMINATI ON: CHEST 2 VIEWS INDICATION: Check for old pacemaker leads COMPARISON: [Chest radiograph 08/07/2019] FINDINGS: PA and lateral vi ews TUBES and LINES: Left chest wall cardiac device with 4 pacemaker leads , leads terminate in the right atrium and right ventricle and coronary sinus. LUNGS: Lungs are well inflated. No consolidations. Pulmonary vascular co ngestion. PLEURA: Small right pleural effusion or pneumothorax. HEART AND MEDIASTINUM: Mild cardiomegaly. BONES AND SOFT TISSUES: No acute osseous lesion. Soft tissues are unremarkable. Degenerative changes in the s pine. UPPER ABDOMEN: No free air under the diaphragm. IMPRESSION: Mild cardiomegaly, pulmonary vascular congestion, and small right pleural effusion. Left chest wall cardiac device with 4 pacemaker leads, leads termi bobby in the right atrium and right ventricle and coronary sinus. Signed b y: Ford Granado DO on 09/20/2019 6:11 AM Dictated By: FORD GRANADO DO 0 Transcribed By: GURMEET on 09/20/19610 COPY TO: CAROLE TRISTAN NP Bedside Xhxpnrh8883-86-24 16:34:00* Test Item Value Reference Range Interpretation Comments Bedside Glucose (test code = 03497-8) 155 70-120 H Meter ID: [id number] [facility] HospitalBacteria identification in wound by izossuq8596-37-61 12:20:00* Test Item Value Reference Range Interpretation Comments Wound Culture (test code = 6462-6) SERRATIA MARCESCENS [facility] HospitalBlood rxgqvjn4254-35-82 11:20:00* Test Item Value Reference Range Interpretation Comments Blood Culture (test code = 78830204) NO GROWTH AFTER 5 DAYS, FINAL REPORT [facility] HospitalWhite Blood Cseke5097-97-34 06:33:00* Test Item Value Reference Range Interpretation Comments White Blood Count (test code = 6690-2) 6.12 4.8-10.8 [facility] HospitalRed Blood Zwksy4999-99-86 06:33:00* Test Item Value Reference Range Interpretation Comments Red Blood Count (test code = 789-8) 3.85 4.3-5.7 L [facility] HospitalHemoglobin2019-10-26 06:33:00* Test Item Value Reference Range Interpretation Comments Hemoglobin (test code = 53513-7) 11.8 14.0-18.0 L [facility] HospitalHematocrit2019-10-26 06:33:00* Test Item Value Reference Range Interpretation Comments Hematocrit (test code = 4544-3) 36.2 38.2-49.6 L [facility] HospitalMean Corpuscular Sicjsf2866-18-70 06:33:00* Test Item Value Reference Range Interpretation Comments Mean Corpuscular Volume (test code = 787-2) 94.0 81-99 [facility] HospitalMean Corpuscular Zvjlfpgggr8987-55-55 06:33:00* Test Item Value Reference Range Interpretation Comments Mean Corpuscular Hemoglobin (test code = 785-6) 30.6 28-32 [facility] Hemoglobin Concent 2019-09-19 06:33:00* Test Item Value Reference Range Interpretation Comments Mean Corpuscular Hemoglobin Concent (test code = 786-4) 32.6 31-35 [facility] HospitalRed Cell Distribution Yovld3676-03-85 06:33:00* Test Item Value Reference Range Interpretation Comments Red Cell Distribution Width (test code = 83220-3) 13.4 11.7 -14.4 [facility] HospitalPlatelet Sqvkc9897-28-64 06:33:00* Test Item Value Reference Range Interpretation Comments Platelet Count (test code = 777-3) 172 140-360 [facility] HospitalNeutrophils (%) (Auto)2019-09-19 06:33:00 * Test Item Value Reference Range Interpretation Comments Neutrophils (%) (Auto) (test code = 36898-7) 54.0 38.7-80.0 [facility] HospitalLymphocytes (%) (Auto)2019-09-19 06:33:00 * Test Item Value Reference Range Interpretation Comments Lymphocytes (%) (Auto) (test code = 736-9) 23.5 18.0-39.1 [facility] HospitalMonocytes (%) (Auto)2019-09-19 06:33:00* Test Item Value Reference Range Interpretation Comments Monocytes (%) (Auto) (test code = 5905-5) 17.6 4.4-11.3 H [facility] HospitalEosinophils (%) (Auto)2019-09-19 06:33:00 * Test Item Value Reference Range Interpretation Comments Eosinophils (%) (Auto) (test code = 713-8) 3.9 0.0-6.0 [facility] HospitalBasophils (%) (Auto)2019-09-19 06:33:00* Test Item Value Reference Range Interpretation Comments Basophils (%) (Auto) (test code = 706-2) 0.5 0.0-1.0 [facility] HospitalIM GRANULOCYTES %2019-09-19 06:33:00* Test Item Value Reference Range Interpretation Comments IM GRANULOCYTES % (test code = IM GRANULOCYTES %) 0.5 0.0- 1.0 [facility] HospitalNeutrophils # (Auto)2019-09-19 06:33:00* Test Item Value Reference Range Interpretation Comments Neutrophils # (Auto) (test code = 751-8) 3.3 2.1-6.9 [facility] HospitalLymphocytes # (Auto)2019-09-19 06:33:00* Test Item Value Reference Range Interpretation Comments Lymphocytes # (Auto) (test code = 49425-4) 1.4 1.0-3.2 [facility] HospitalMonocytes # (Auto)2019-09-19 06:33:00* Test Item Value Reference Range Interpretation Comments Monocytes # (Auto) (test code = 742-7) 1.1 0.2-0.8 H [facility] HospitalEosinophils # (Auto)2019-09-19 06:33:00* Test Item Value Reference Range Interpretation Comments Eosinophils # (Auto) (test code = 711-2) 0.2 0.0-0.4 [facility] HospitalBasophils # (Auto)2019-09-19 06:33:00* Test Item Value Reference Range Interpretation Comments Basophils # (Auto) (test code = 704-7) 0.0 0.0-0.1 [facility] HospitalAbsolute Immature Granulocyte (auto 2019-09-19 06:33:00* Test Item Value Reference Range Interpretation Comments Absolute Immature Granulocyte (auto (soraida t code = Absolute Immature Granulocyte (auto) 0.03 0-0.1 [facility] Hospitalodium Pljxx8145-21-47 06:30:00* Test Item Value Reference Range Interpretation Comments Sodium Level (test code = 2951-2) 139 136-145 [facility] HospitalPotassium Rprth5850-02-29 06:30:00* Test Item Value Reference Range Interpretation Comments Potassium Level (test code = 2823-3) 4.0 3.5-5.1 [facility] HospitalChloride Adhhq2628-47-82 06:30:00* Test Item Value Reference Range Interpretation Comments Chloride Level (test code = 2075-0) 105 98-107 [facility] HospitalCarbon Dioxide Hrlgy1807-83-25 06:30:00* Test Item Value Reference Range Interpretation Comments Carbon Dioxide Level (test code = 2028-9) 26 22-29 [facility] HospitalAnion Sef7403-34-90 06:30:00* Test Item Value Reference Range Interpretation Comments Anion Gap (test code = 35375-4) 12.0 8-16 [facility] HospitalBlood Urea Xxrmbkgn1853-62-64 06:30:00* Test Item Value Reference Range Interpretation Comments Blood Urea Nitrogen (test code = 3094-0) 18 7-26 [facility] HospitalCreatinine2019-10-26 06:30:00* Test Item Value Reference Range Interpretation Comments Creatinine (test code = 2160-0) 0.84 0.72-1.25 [facility] HospitalBUN/Creatinine Ojlqe4382-92-96 06:30:00* Test Item Value Reference Range Interpretation Comments BUN/Creatinine Ratio (test code = 3097-3) 21 6- [facility] HospitalEstimat Glomerular Filtration Rate 2019-09-19 06:30:00* Test Item Value Reference Range Interpretation Comments Estimat Glomerular Filtration Rate (test code = 393938957) > 60 >60 Ranges were taken from the National Kidney Disease Education Program and the [facility] Kidney Foundation literature.Reference ranges:60 or greater: Lmzelw76-81 ( for 3 consecutive months): Chronic kidney disease 15 or less: Kidney failureMethodist TexSan HospitalGlucose Urhwz1048-24-78 06:30:00* Test Item Value Reference Range Interpretation Comments Glucose Level (test code = NGX0255) 128 74-118 H [facility] HospitalCalcium Fbesv6726-98-99 06:30:00* Test Item Value Reference Range Interpretation Comments Calcium Level (test code = 30708-7) 8.2 8.4-10.2 L [facility] HospitalDifferential Total Cells Counted 2019-08-08 04:09:00* Test Item Value Reference Range Interpretation Comments Differential Total Cells Counted (test code = Differprince tial Total Cells Counted) 100 [facility] HospitalNeutrophils % (Manual)2019-08-08 04:09:00 * Test Item Value Reference Range Interpretation Comments Neutrophils % (Manual) (test code = 45622-3) 74 40-74 [facility] HospitalLymphocytes % (Manual)2019-08-08 04:09:00 * Test Item Value Reference Range Interpretation Comments Lymphocytes % (Manual) (test code = 737-7) 10 19-48 L [facility] HospitalMonocytes % (Manual)2019-08-08 04:09:00* Test Item Value Reference Range Interpretation Comments Monocytes % (Manual) (test code = 744-3) 16 3.4-9.0 H [facility] HospitalPlatelet Qmerdyrw7675-04-57 04:09:00* Test Item Value Reference Range Interpretation Comments Platelet Estimate (test code = 12483-6) ADEQUATE [facility] HospitalPlatelet Morphology Xjltrnl0182-27-48 04:09:00* Test Item Value Reference Range Interpretation Comments Platelet Morphology Comment (test code = 22653-0) NORMAL [facility] HospitalRed Cell Morphology Cswgchl8022-22-13 04:09:00* Test Item Value Reference Range Interpretation Comments Red Cell Morphology Comment (test code = 6742-1) NORMAL [facility] HospitalDifferential Total Cells Counted 2019-08-08 04:09:00* Test Item Value Reference Range Interpretation Comments Differential Total Cells Counted (test code = Differprince tial Total Cells Counted) 100 [facility] HospitalNeutrophils % (Manual)2019-08-08 04:09:00 * Test Item Value Reference Range Interpretation Comments Neutrophils % (Manual) (test code = 61269-1) 74 40-74 [facility] HospitalLymphocytes % (Manual)2019-08-08 04:09:00 * Test Item Value Reference Range Interpretation Comments Lymphocytes % (Manual) (test code = 737-7) 10 19-48 L [facility] HospitalMonocytes % (Manual)2019-08-08 04:09:00* Test Item Value Reference Range Interpretation Comments Monocytes % (Manual) (test code = 744-3) 16 3.4-9.0 H [facility] HospitalPlatelet Oewymxtr2212-10-76 04:09:00* Test Item Value Reference Range Interpretation Comments Platelet Estimate (test code = 09510-0) ADEQUATE [facility] HospitalPlatelet Morphology Rkmyexm5687-61-09 04:09:00* Test Item Value Reference Range Interpretation Comments Platelet Morphology Comment (test code = 67336-0) NORMAL [facility] HospitalRed Cell Morphology Hlcqjnq7035-10-73 04:09:00* Test Item Value Reference Range Interpretation Comments Red Cell Morphology Comment (test code = 6742-1) NORMAL [facility] HospitalB-Type Natriuretic Jjityjd8621-14-18 04:04:00* Test Item Value Reference Range Interpretation Comments B-Type Natriuretic Peptide (test code = 60260-0) 479.6 0-100 H [facility] HospitalB-Type Natriuretic Xjjobil9143-19-65 04:04:00* Test Item Value Reference Range Interpretation Comments B-Type Natriuretic Peptide (test code = 21363-5) 479.6 0-100 H [facility] Hospitalodium Cidug1922-71-82 03:45:00* Test Item Value Reference Range Interpretation Comments Sodium Level (test code = 2951-2) 140 136-145 [facility] HospitalPotassium Rntte1803-20-00 03:45:00* Test Item Value Reference Range Interpretation Comments Potassium Level (test code = 2823-3) 3.5 3.5-5.1 [facility] HospitalChloride Dyvdc1904-90-20 03:45:00* Test Item Value Reference Range Interpretation Comments Chloride Level (test code = 2075-0) 99 98-107 [facility] HospitalCarbon Dioxide Oklrh5513-81-90 03:45:00* Test Item Value Reference Range Interpretation Comments Carbon Dioxide Level (test code = 2028-9) 28 22-29 [facility] HospitalAnion Pip2394-43-31 03:45:00* Test Item Value Reference Range Interpretation Comments Anion Gap (test code = 10771-3) 16.5 8-16 H [facility] HospitalBlood Urea Knebtzny2636-48-34 03:45:00* Test Item Value Reference Range Interpretation Comments Blood Urea Nitrogen (test code = 3094-0) 32 7-26 H [facility] HospitalCreatinine2019-09-14 03:45:00* Test Item Value Reference Range Interpretation Comments Creatinine (test code = 2160-0) 1.14 0.72-1.25 [facility] HospitalBUN/Creatinine Exqyf9624-86-01 03:45:00* Test Item Value Reference Range Interpretation Comments BUN/Creatinine Ratio (test code = 3097-3) 28 6-25 H [facility] HospitalEstimat Glomerular Filtration Rate 2019-08-08 03:45:00* Test Item Value Reference Range Interpretation Comments Estimat Glomerular Filtration Rate (test code = 237514371) > 60 >60 Ranges were taken from the National Kidney Disease Education Program and the [facility] Kidney Foundation literature.Reference ranges:60 or greater: Crkpbx14-85 ( for 3 consecutive months): Chronic kidney disease 15 or less: Kidney failureMethodist TexSan HospitalGlucose Bkzay0583-44-96 03:45:00* Test Item Value Reference Range Interpretation Comments Glucose Level (test code = WOQ2933) 73 74-118 L [facility] HospitalCalcium Ixlwp5780-30-37 03:45:00* Test Item Value Reference Range Interpretation Comments Calcium Level (test code = 89868-4) 9.1 8.4-10.2 [facility] HospitalWhite Blood Eejht9018-12-45 03:26:00* Test Item Value Reference Range Interpretation Comments White Blood Count (test code = 6690-2) 12.09 4.8-10.8 H [facility] HospitalRed Blood Fqabx9168-81-49 03:26:00* Test Item Value Reference Range Interpretation Comments Red Blood Count (test code = 789-8) 4.85 4.3-5.7 [facility] HospitalHemoglobin2019-09-14 03:26:00* Test Item Value Reference Range Interpretation Comments Hemoglobin (test code = 35773-1) 15.1 14.0-18.0 [facility] HospitalHematocrit2019-09-14 03:26:00* Test Item Value Reference Range Interpretation Comments Hematocrit (test code = 4544-3) 44.3 38.2-49.6 [facility] HospitalMean Corpuscular Dijkwk7849-61-48 03:26:00* Test Item Value Reference Range Interpretation Comments Mean Corpuscular Volume (test code = 787-2) 91.3 81-99 [facility] HospitalMean Corpuscular Zohrzfikul8378-14-01 03:26:00* Test Item Value Reference Range Interpretation Comments Mean Corpuscular Hemoglobin (test code = 785-6) 31.1 28-32 [facility] HospitalMean Corpuscular Hemoglobin Concent 2019-08-08 03:26:00* Test Item Value Reference Range Interpretation Comments Mean Corpuscular Hemoglobin Concent (test code = 786-4) 34.1 31-35 [facility] HospitalRed Cell Distribution Rjwfh3304-64-60 03:26:00* Test Item Value Reference Range Interpretation Comments Red Cell Distribution Width (test code = 42505-2) 13.3 11.7 -14.4 [facility] HospitalPlatelet Dcdyd6759-72-18 03:26:00* Test Item Value Reference Range Interpretation Comments Platelet Count (test code = 777-3) 179 140-360 [facility] HospitalNeutrophils (%) (Auto)2019-08-08 03:26:00 * Test Item Value Reference Range Interpretation Comments Neutrophils (%) (Auto) (test code = 08356-8) 74.2 38.7-80.0 [facility] HospitalLymphocytes (%) (Auto)2019-08-08 03:26:00 * Test Item Value Reference Range Interpretation Comments Lymphocytes (%) (Auto) (test code = 736-9) 10.5 18.0-39.1 L [facility] HospitalMonocytes (%) (Auto)2019-08-08 03:26:00* Test Item Value Reference Range Interpretation Comments Monocytes (%) (Auto) (test code = 5905-5) 13.2 4.4-11.3 H [facility] HospitalEosinophils (%) (Auto)2019-08-08 03:26:00 * Test Item Value Reference Range Interpretation Comments Eosinophils (%) (Auto) (test code = 713-8) 1.6 0.0-6.0 [facility] HospitalBasophils (%) (Auto)2019-08-08 03:26:00* Test Item Value Reference Range Interpretation Comments Basophils (%) (Auto) (test code = 706-2) 0.2 0.0-1.0 [facility] HospitalIM GRANULOCYTES %2019-08-08 03:26:00* Test Item Value Reference Range Interpretation Comments IM GRANULOCYTES % (test code = IM GRANULOCYTES %) 0.3 0.0- 1.0 [facility] HospitalNeutrophils # (Auto)2019-08-08 03:26:00* Test Item Value Reference Range Interpretation Comments Neutrophils # (Auto) (test code = 751-8) 9.0 2.1-6.9 H [facility] HospitalLymphocytes # (Auto)2019-08-08 03:26:00* Test Item Value Reference Range Interpretation Comments Lymphocytes # (Auto) (test code = 03312-1) 1.3 1.0-3.2 [facility] HospitalMonocytes # (Auto)2019-08-08 03:26:00* Test Item Value Reference Range Interpretation Comments Monocytes # (Auto) (test code = 742-7) 1.6 0.2-0.8 H [facility] HospitalEosinophils # (Auto)2019-08-08 03:26:00* Test Item Value Reference Range Interpretation Comments Eosinophils # (Auto) (test code = 711-2) 0.2 0.0-0.4 [facility] HospitalBasophils # (Auto)2019-08-08 03:26:00* Test Item Value Reference Range Interpretation Comments Basophils # (Auto) (test code = 704-7) 0.0 0.0-0.1 [facility] HospitalAbsolute Immature Granulocyte (auto 2019-08-08 03:26:00* Test Item Value Reference Range Interpretation Comments Absolute Immature Granulocyte (auto (soraida t code = Absolute Immature Granulocyte (auto) 0.04 0-0.1 [facility] HospitalFluoroscopic procedure less than one hour ldfwwoav4004-48-80 03:11:00* Test Item Value Reference Range Interpretation Comments Differential Total Cells Counted (test code = Roge tial Total Cells Counted) 100 [facility] Campusual [facility] neutrophils/100 leukocytes 2019-08-08 03:11:00* Test Item Value Reference Range Interpretation Comments Neutrophils % (Manual) (test code = 90652-8) 74 40-[address] [facility] blood lymphocytes/100 leukocytes 2019-08-08 03:11:00* Test Item Value Reference Range Interpretation Comments Lymphocytes % (Manual) (test code = 737-7) 10 19-[address] [facility] blood monocytes/100 leukocytes 2019-08-08 03:11:00* Test Item Value Reference Range Interpretation Comments Monocytes % (Manual) (test code = 744-3) 16 3.4-9.0 [facility] HospitalBlood platelets count by estimate (number/volume)2019-08-08 03:11:00* Test Item Value Reference Range Interpretation Comments Platelet Estimate (test code = 33473-6) ADEQUATE [facility] HospitalPlatelet nvhdokpioc1621-24-67 03:11:00* Test Item Value Reference Range Interpretation Comments Platelet Morphology Comment (test code = 46513-1) NORMAL [facility] HospitalRBC wrzusubbhw8486-55-07 03:11:00* Test Item Value Reference Range Interpretation Comments Red Cell Morphology Comment (test code = 6742-1) NORMAL [facility] HospitalBNP Aic-wGpe6208-60-14 03:11:00* Test Item Value Reference Range Interpretation Comments B-Type Natriuretic Peptide (test code = 75563-9) 479.6 0-100 [facility] HospitalBedside Inqmqdb1585-79-90 21:52:00* Test Item Value Reference Range Interpretation Comments Bedside Glucose (test code = 26358-8) 201 70-120 H Meter ID: [id number] TexSan HospitalCHEST SINGLE (PORTABLE)2019-08-07 17:38:00 [place] [address] Patient Name: JESSICA LANDRY MR #: [id number] : 1930 Age/Sex: 88/M Req #: [id number] Adm Physician: FRANCESCO JIMENEZ MD Ordered by: ROSANGELA FIGUEROA MD Report #: [id number] Location: [facility] Room/Bed: [place] [address] Procedure: [id number] DX/CHEST SINGLE (PORTABLE) Exam Date: 08/07/19 E xam Time: 1700 REPORT STATUS: Iva d Exam: Chest one view Comparison: August 05, 2019 Clinical hist ory: ICD insertion X Findings: There is interval insertion of a left subcla vian ICD in its expected location. A left-sided chest tube has also been inser sheri. Mild to moderate right subpulmonic pleural effusion with associated atele ctasis is again noted. There is no evidence of pneumothorax. Cardiomegaly is a gain visualized. The regional osseous structures are unremarkable. Signed by: Dr. Fernando Venegas MD on 08/07/2019 5:40 PM Dictated By: AMIRA VENEGAS MD 39 Transcribed B y: GURMEET on 08/07/191739 COPY TO: ROSANGELA FIGUEROA MD Thyroid Stimulating Hormone (TSH)2019-08-06 06:47:00* Test Item Value Reference Range Interpretation Comments Thyroid Stimulating Hormone (TSH) (test code = 43992-6) 2.350 0.350-4.940 [facility] (TSH) 2019-08-06 06:47:00* Test Item Value Reference Range Interpretation Comments Thyroid Stimulating Hormone (TSH) (test code = 79556-7) 2.350 0.350-4.940 [facility]osphorus Boqdt1701-34-48 06:07:00* Test Item Value Reference Range Interpretation Comments Phosphorus Level (test code = JGB6113) 3.7 2.3-4.7 [facility] HospitalMagnesium Ulltm2997-45-75 06:07:00* Test Item Value Reference Range Interpretation Comments Magnesium Level (test code = 98817-3) 1.8 1.3-2.1 [facility] HospitalTriglycerides Misod5807-24-27 06:07:00* Test Item Value Reference Range Interpretation Comments Triglycerides Level (test code = 2571-8) 61 0-149 [facility]Cholesterol Mufwk5203-31-25 06:07:00* Test Item Value Reference Range Interpretation Comments Cholesterol Level (test code = 2093-3) 121 0-199 Less than 200 mg/dL Low Ohup272 - 239 mg/dL Borderline Sjpb391 m g/dl and greater High Risk [facility] HospitalLDL Gqkumdkluus6280-22-91 06:07:00* Test Item Value Reference Range Interpretation Comments LDL Cholesterol (test code = 2089-1) 76 60-130 [facility] HospitalHDL Cvpxzuvzixx9906-44-19 06:07:00* Test Item Value Reference Range Interpretation Comments HDL Cholesterol (test code = 2085-9) 33 40-60 L [facility] HospitalCholesterol/HDL Wuopk5716-36-23 06:07:00 * Test Item Value Reference Range Interpretation Comments Cholesterol/HDL Ratio (test code = 9830-1) 3.7 3.9-4.7 L [facility] HospitalPhosphorus Vaqvf3216-22-10 06:07:00* Test Item Value Reference Range Interpretation Comments Phosphorus Level (test code = AVE6426) 3.7 2.3-4.7 [facility] HospitalMagnesium Kergr6434-52-28 06:07:00* Test Item Value Reference Range Interpretation Comments Magnesium Level (test code = 47778-2) 1.8 1.3-2.1 [facility] HospitalTriglycerides Okmhu5532-43-08 06:07:00* Test Item Value Reference Range Interpretation Comments Triglycerides Level (test code = 2571-8) 61 0-149 [facility] Yymzh4817-04-63 06:07:00* Test Item Value Reference Range Interpretation Comments Cholesterol Level (test code = 2093-3) 121 0-199 Less than 200 mg/dL Low Btkf350 - 239 mg/dL Borderline Aoxj423 m g/dl and greater High Risk [facility] HospitalLDL Qmcttsqjcmz5685-45-06 06:07:00* Test Item Value Reference Range Interpretation Comments LDL Cholesterol (test code = 2089-1) 76 60-130 [facility] HospitalHDL Axdttvolylh8118-46-15 06:07:00* Test Item Value Reference Range Interpretation Comments HDL Cholesterol (test code = 2085-9) 33 40-60 L [facility]Cholesterol/HDL Lpark1452-73-27 06:07:00 * Test Item Value Reference Range Interpretation Comments Cholesterol/HDL Ratio (test code = 9830-1) 3.7 3.9-4.7 L [facility] HospitalHemoglobin A1c Spqsgbv9149-05-01 06:02:00 * Test Item Value Reference Range Interpretation Comments Hemoglobin A1c Percent (test code = Hemoglobin A1c Percent) 6.4 4.0-7.0 [facility] HospitalHemoglobin A1c Gtptgxn8713-62-36 06:02:00 * Test Item Value Reference Range Interpretation Comments Hemoglobin A1c Percent (test code = Hemoglobin A1c Percent) 6.4 4.0-7.0 [facility] HospitalFluoroscopic procedure less than one hour fydwmqvr1294-19-46 05:15:00* Test Item Value Reference Range Interpretation Comments Hemoglobin A1c Percent (test code = Hemoglobin A1c Percent) 6.4 4.0-7.0 [facility] HospitalPhosphorus rjphrivhoig6176-12-91 05:15:00 * Test Item Value Reference Range Interpretation Comments Phosphorus Level (test code = BTN4163) 3.7 2.3-4.7 [facility] Hospital[facility] or plasma magnesium measurement (mass/volume)2019-08-06 05:15:00* Test Item Value Reference Range Interpretation Comments Magnesium Level (test code = 70162-1) 1.8 1.3-2.1 [facility] Hospitalerum or plasma triglyceride measurement (mass/volume)2019-08-06 05:15:00* Test Item Value Reference Range Interpretation Comments Triglycerides Level (test code = 2571-8) 61 0-149 [facility] Hospitalerum or plasma cholesterol measurement (mass/volume)2019-08-06 05:15:00* Test Item Value Reference Range Interpretation Comments Cholesterol Level (test code = 2093-3) 121 0-199 Less than 200 mg/dL Low Hzhy179 - 239 mg/dL Borderline Qzea748 m g/dl and greater High Risk [facility] Hospitalerum or plasma cholesterol in LDL measurement (mass/volume) 2019-08-06 05:15:00* Test Item Value Reference Range Interpretation Comments LDL Cholesterol (test code = 2089-1) 76 60-130 [facility] Hospitalerum or plasma cholesterol in HDL measurement (mass/volume)2019-08-06 05:15:00* Test Item Value Reference Range Interpretation Comments HDL Cholesterol (test code = 2085-9) 33 40-60 [facility] Hospitalerum or plasma total cholesterol/cholesterol in HDL mass rhhpb4629-65-85 05:15:00* Test Item Value Reference Range Interpretation Comments Cholesterol/HDL Ratio (test code = 9830-1) 3.7 3.9-4.7 [facility] Hospitalerum or plasma thyrotropin measurement by detection limit <= 0.005 miu/l (units/volume)2019-08-06 05:15:00* Test Item Value Reference Range Interpretation Comments Thyroid Stimulating Hormone (TSH) (test code = 21554-6) 2.350 0.350-4.940 [facility]CHEST 2 CRNUY5849-14-05 17:01:00 [facility] [address] [place] [address] Patient Name: JESSICA LANDRY MR #: [id number] : 1930 Age/Sex: 88/M Req #: [id number] Adm Physician: FRANCESCO JIMENEZ MD Ordered by: FRANCESCO JIMENEZ MD Report #: [id number] Location: [facility] Room/Bed: [address] Procedure: [id number] D X/CHEST 2 VIEWS Exam Date: Exam Time: REPORT STATUS: Signed EXAMINATION: CHEST 2 VIEWS INDICATION: Shortness of breath COMPARISON: Chest radiograph of 09/06/2009 FINDINGS: LINES/TUBES:Left chest pacemaker with le ads terminating in the right atrium and right ventricle. EKG leads overlie the chest. LUNGS:The lungs are mildly hyperinflated. Patchy opacity at the rig ht lung base. PLEURA:Moderate layering right pleural effusion. No pneumot horax. MEDIASTINUM:Cardiomegaly, increased since 2008. Atherosclerotic calc ifications of the thoracic aorta. BONES/SOFT TISSUES:No acute osseous inj ury. Degenerative changes of the visualized spine. ABDOMEN:No free air un harini the diaphragm. IMPRESSION: Moderate layering right pleural effusi on. Patchy opacity at the right lung base likely represents associated subsegm ental atelectasis. Cardiomegaly, increased from 2008. Signed by: Shila Aguiar MD on 08/05/2019 5:04 PM Dictated By: RAVI AGUIAR MD 03 Transcribed By: GURMEET on 08/05/191703 COPY TO: FRANCESCO JIMENEZ MD Total Sprvfxuwe8677-90-27 13:29:00* Test Item Value Reference Range Interpretation Comments Total Bilirubin (test code = 1975-2) 1.1 0.2-1.2 [facility] HospitalAspartate Amino Transf (AST/SGOT) 2019-08-05 13:29:00* Test Item Value Reference Range Interpretation Comments Aspartate Amino Transf (AST/SGOT) (test code = Aspartate Amino Transf (AST/SGOT)) 14 5-34 [facility] HospitalAlanine Aminotransferase (ALT/SGPT) 2019-08-05 13:29:00* Test Item Value Reference Range Interpretation Comments Alanine Aminotransferase (ALT/SGPT) (test code = 1742-6) 15 0-55 [facility] HospitalTotal Dwdggbk1943-69-39 13:29:00* Test Item Value Reference Range Interpretation Comments Total Protein (test code = 2885-2) 5.9 6.5-8.1 L [facility] HospitalAlbumin2019-09-11 13:29:00* Test Item Value Reference Range Interpretation Comments Albumin (test code = 1751-7) 3.3 3.5-5.0 L [facility] HospitalGlobulin2019-09-11 13:29:00* Test Item Value Reference Range Interpretation Comments Globulin (test code = 06116-2) 2.6 2.3-3.5 [facility] HospitalAlbumin/Globulin Gohwm0895-78-91 13:29:00 * Test Item Value Reference Range Interpretation Comments Albumin/Globulin Ratio (test code = 1759-0) 1.3 0.8-2.0 [facility] HospitalAlkaline Ssjjoywggbj6527-79-34 13:29:00* Test Item Value Reference Range Interpretation Comments Alkaline Phosphatase (test code = 6768-6) 83 40-150 [facility] HospitalTotal Jaueqszrr5267-64-28 13:29:00* Test Item Value Reference Range Interpretation Comments Total Bilirubin (test code = 1975-2) 1.1 0.2-1.2 [facility] HospitalAspartate Amino Transf (AST/SGOT) 2019-08-05 13:29:00* Test Item Value Reference Range Interpretation Comments Aspartate Amino Transf (AST/SGOT) (test code = Aspartate Amino Transf (AST/SGOT)) 14 34 [facility] HospitalAlanine Aminotransferase (ALT/SGPT) 2019-08-05 13:29:00* Test Item Value Reference Range Interpretation Comments Alanine Aminotransferase (ALT/SGPT) (test code = 1742-6) 15 0-55 [facility] HospitalTotal Lrmtoxo5132-64-03 13:29:00* Test Item Value Reference Range Interpretation Comments Total Protein (test code = 2885-2) 5.9 6.5-8.1 L [facility] HospitalAlbumin2019-09-11 13:29:00* Test Item Value Reference Range Interpretation Comments Albumin (test code = 1751-7) 3.3 3.5-5.0 L [facility] HospitalGlobulin2019-09-11 13:29:00* Test Item Value Reference Range Interpretation Comments Globulin (test code = 82962-9) 2.6 2.3-3.5 [facility] HospitalAlbumin/Globulin Gwpjz3689-32-66 13:29:00 * Test Item Value Reference Range Interpretation Comments Albumin/Globulin Ratio (test code = 1759-0) 1.3 0.8-2.0 [facility] HospitalAlkaline Hsypofgxlvk1630-96-03 13:29:00* Test Item Value Reference Range Interpretation Comments Alkaline Phosphatase (test code = 6768-6) 83 40-150 [facility] Hospitalerum or plasma total bilirubin measurement (mass/volume)2019-08-05 12:45:00* Test Item Value Reference Range Interpretation Comments Total Bilirubin (test code = 1975-2) 1.1 0.2-1.2 [facility] HospitalFluoroscopic procedure less than one hour sflrbosd3813-06-07 12:45:00* Test Item Value Reference Range Interpretation Comments Aspartate Amino Transf (AST/SGOT) (test code = Aspartate Amino Transf (AST/SGOT)) 14 5-34 [facility] Hospitalerum or plasma alanine aminotransferase measurement (enzymatic activity/volume)2019-08-05 12:45:00* Test Item Value Reference Range Interpretation Comments Alanine Aminotransferase (ALT/SGPT) (test code = 1742-6) 15 0-55 [facility] Hospitalerum or plasma protein measurement (mass/volume)2019-08-05 12:45:00* Test Item Value Reference Range Interpretation Comments Total Protein (test code = 2885-2) 5.9 6.5-8.1 [facility] Hospitalerum or plasma albumin measurement (mass/volume)2019-08-05 12:45:00* Test Item Value Reference Range Interpretation Comments Albumin (test code = 1751-7) 3.3 3.5-5.0 [facility] HospitalPlasma globulin measurement (mass/volume) 2019-08-05 12:45:00* Test Item Value Reference Range Interpretation Comments Globulin (test code = 28423-9) 2.6 2.3-3.5 [facility] Hospitalerum or plasma albumin/globulin mass xvgaz6378-86-90 12:45:00* Test Item Value Reference Range Interpretation Comments Albumin/Globulin Ratio (test code = 1759-0) 1.3 0.8-2.0 [facility] Hospitalerum or plasma alkaline phosphatase measurement (enzymatic activity/volume)2019-08-05 12:45:00* Test Item Value Reference Range Interpretation Comments Alkaline Phosphatase (test code = 6768-6) 83 40-150 [facility]
[2020-07-22 16:00] VITALS: BP 144/47
--- NOTE | 2020-07-22 16:00 | NUR ---
Received patient direct admit from Dr. Jd Gomez's office to room 207. Patient is here for stat thoracentesis. Alert and oriented. Respiration even and unlabored without SOB. Denies SOB. Denies pain at this time. Patient orientated to room.
--- NOTE | 2020-07-22 17:20 | NUR ---
Dr. Jd Gomez states that the patient can go home today after all the orders are carried out.
--- NOTE | 2020-07-22 17:30 | Operative Report ---
DATE OF PROCEDURE: SURGEON: Tarik Gomez MD PROCEDURE: Thoracentesis under ultrasound guidance. PREOPERATIVE DIAGNOSIS: Malignant pleural effusion. POSTOPERATIVE DIAGNOSIS: Malignant pleural effusion. CONSENT: Consent was obtained from the patient. MEDICATIONS: 1% lidocaine for local anesthesia. DESCRIPTION OF PROCEDURE: The patient was placed in the upright position. He was sitting forward. An ultrasound machine was used to visualize the left hemithorax. There was a large amount of fluid with no loculations or septations. The patient's posterior hemithorax was prepped sterilely with chlorhexidine. A sterile drape, sterile gowns, and gloves were used. 1% lidocaine was used to anesthetize the area over the 9th posterior intercostal space. A 16-gauge needle was used to pass through the parietal pleura into the pleural space. A catheter was then advanced over the needle. 2.5 L of dark yellow fluid was removed. COMPLICATIONS: None. ESTIMATED BLOOD LOSS: None. Tarik Gomez MD [facility]/MODL /[id number]
--- NOTE | 2020-07-22 18:03 | Diagnostic Imaging Report ---
EXAMINATION: CHEST SINGLE (PORTABLE) INDICATION: Status post thoracentesis. COMPARISON: Multiple prior chest x-rays including most recent on 04/07/2020. FINDINGS: TUBES and LINES: Triple lead cardiac pacing device projected over the right chest wall. LUNGS: Normal lung volumes. There are prominent interstitial lung markings and hazy opacification of the left lung base. PLEURA: There is small left and trace right pleural effusion. HEART AND MEDIASTINUM: The cardiomediastinal silhouette is enlarged. BONES AND SOFT TISSUES: No acute osseous lesion. Soft tissues are unremarkable. UPPER ABDOMEN: No free air under the diaphragm. IMPRESSION: 1. Cardiomegaly with mild pulmonary edema. 2. Small left and trace right pleural effusion with superimposed compressive atelectasis on the left. Underlying consolidation in the left lung base cannot be excluded. Signed by: Hima Saeed MD on 07/22/2020 6:00 PM
--- NOTE | 2020-07-22 19:20 | NUR ---
Patient received sitting in chair. AAO x 4. Patient had no complaints of pain. Respirations even and non-labored. Safety measures in place. Patient instructed to call for assistance when needed. Call light within reach.
--- NOTE | 2020-07-22 19:39 | NUR ---
Order received from Dr. Jd Gomez to discharge patient.
[2020-07-22 19:44] LABS: BODY FLUID TYPE PLEURAL
[2020-07-22 19:45] LABS: BODY FLUID APPEARANCE SL.CLOUDY; BODY FLUID COLOR YELLOW; RBC,BODY FLUID 302 cells/uL; WBC,BODY FLUID 23 cells/uL
[2020-07-22 20:11] LABS: LYMPHOCYTES,BODY FLUID 21 %; MONO/MACROPHG,BODY FLUID 75 %; NEUTROPHILS,BODY FLUID 3 %
[2020-07-22 20:12] LABS: OTHER CELLS,BODY FLUID 1 %
--- NOTE | 2020-07-22 20:28 | NUR ---
Patient discharged via private auto via W/C. Patient given discharge instructions and verbalized understanding. Patient in stable condition. Vital signs WNL.
[2020-07-22] MEDS ORDERED: PRAVASTATIN 20 MG TAB PO SCH (21:00)
[2020-07-23] MEDS ORDERED: FINASTERIDE 5 MG TAB PO SCH (09:00)
[2020-07-23] MEDS ORDERED: TAMSULOSIN HCL 0.4 MG CAP PO SCH (09:00)
--- NOTE | 2020-07-27 10:22 | Diagnostic Imaging Report ---
Ultrasound guided left thoracentesis. Clinical History: Left pleural effusion. Modality: Ultrasound. Sedation: None. Volunteer Patient Representative: Tarik Gomez M.D. Customer Solutions Supervisor: None. Estimated Blood Loss: 1cc Specimen: 2500 cc of pleural fluid. Technique: Informed consent was obtained. The risks of pain, bleeding, infection, lung collapse/pneumothorax, injury to adjacent structures, and adverse medication reactions were discussed with the patient. The patient's left hemithorax was scanned from the back, with the patient in a sitting position. After the largest fluid pocket area was marked, the skin was prepped and draped in the usual sterile manner. The area was anesthetized with 1% lidocaine, a 5 F one-step catheter was advanced into the pleural space under ultrasound guidance. After completion of drainage, the catheter was removed. There was no evidence of immediate complication. Post procedure chest x-ray is pending. Patient disposition: Patient was discharged from the ultrasound department after the thoracentesis in good condition. Impression: Successful and uncomplicated ultrasound guided left thoracentesis. Signed by: Gonzalo Johnson MD on 07/27/2020 10:19 AM
== END 2020-07-22 20:36 | disposition home or self-care (01) ==
LOC: MED/SURG2 15:34
PROVIDERS: ADMIT Internal Medicine Critical Care Medicine; ATTEND Internal Medicine Critical Care Medicine
DX: C34.91 Malignant neoplasm of unspecified part of right bronchus or lung (principal); J91.0 Malignant pleural effusion; Z11.59 Encounter for screening for other viral diseases; Z88.0 Allergy status to penicillin
CPT/HCPCS: 32555; 36415; 71045; 83615; 84157; 84478; 88112; 88305; 89051; G0378; U0002

== ENCOUNTER 2021-08-11 18:17 | Inpatient (IN) | payer MEDICARE, OTHER ==
[~2021-08-11] VITALS: Ht 193 cm; Wt 124.4 kg
[2021-08-11] MEDS ORDERED: ACTOS15 MG PO (18:54)
[2021-08-11] MEDS ORDERED: ENTRESTO 24 MG1 EACH (18:54)
[2021-08-11] MEDS ORDERED: K DUR10 MEQ PO (18:54)
[2021-08-11] MEDS ORDERED: PROSCAR5 MG PO (18:54)
[2021-08-11] MEDS ORDERED: PRAVASTATIN SOD40 MG (18:54)
[2021-08-11 19:10] LABS: BASOPHILS % 0.3 % (0.0-1.0); EOSINOPHILS # (AUTO) 0.1 (0.0-0.4); EOSINOPHILS % 1.6 % (0.0-6.0); HEMATOCRIT 27.6 % (38.2-49.6); LYMPHOCYTES # (AUTO) 0.6 (1.0-3.2); LYMPHOCYTES % 16.3 % (18.0-39.1); MEAN CORPUSCULAR HEMOGLOBIN 33.7 pg (28-32); MEAN CORPUSCULAR HGB CONC 32.6 g/dL (31-35); MEAN CORPUSCULAR VOLUME 103.4 fL (81-99); MONOCYTES # (AUTO) 0.1 (0.2-0.8); MONOCYTES % 3.8 % (4.4-11.3); NEUTROPHILS # (AUTO) 2.8 (2.1-6.9); NEUTROPHILS % 77.2 % (38.7-80.0); PLATELET COUNT 173 x10e3/uL (140-360); RED BLOOD COUNT 2.67 x10e6/uL (4.3-5.7); RED CELL DISTRIBUTION WIDTH 14.4 % (11.7-14.4)
[2021-08-11 19:15] LABS: INR 1.21; PROTHROMBIN TIME 15.6 seconds (11.9-14.5)
[2021-08-11] MEDS ORDERED: SODIUM CHLORIDE 0.9% 500ML 500 ML IV ONE (19:15)
[2021-08-11 19:16] LABS: PARTIAL THROMBOPLASTIN TIME 38.8 seconds (23.8-35.5)
[2021-08-11 19:21] LABS: ANION GAP 16.6 mmol/L (8-16); CALCIUM 9.2 mg/dL (8.4-10.2); CREATININE, SERUM 3.1 mg/dL (0.72-1.25); POTASSIUM 4.6 mmol/L (3.5-5.1)
[2021-08-11] MEDS ORDERED: SODIUM CHLORIDE 0.9% 1000ML 1,000 ML ONE (19:25)
[2021-08-11 19:28] LABS: CREATINE KINASE MB 4.1 ng/mL (0-5.0)
[2021-08-11] MEDS ORDERED: SODIUM CHLORIDE 0.9% 1000ML 1,000 ML IV ONE (19:30)
[2021-08-11 19:44] LABS: ALBUMIN 3.5 g/dL (3.5-5.0); BILIRUBIN,DIRECT 0.3 mg/dL (0.0-0.5)
[2021-08-11] MEDS ORDERED: LEVOFLOXACIN 750MG/D5W 150ML 150 ML IV SCH (19:45)
[2021-08-11] MEDS ORDERED: Vancomycin IV 1 GM in SODIUM CHLORIDE 0.9% 250ML 250 ML IV ONE (19:45)
[2021-08-11] MEDS ORDERED: CEFEPIME HCL 1 GM VIAL ONE (20:03)
[2021-08-11] MEDS ORDERED: LEVOFLOXACIN 500MG/D5W 100ML 100 ML IV ONE (20:03)
[2021-08-11] MEDS ORDERED: SODIUM CHLORIDE 0.9% 50ML 50 ML ONE (20:03)
[2021-08-11] MEDS ORDERED: Vancomycin IV 1 GM VIAL ONE (20:03)
[2021-08-11] MEDS ORDERED: SODIUM CHLORIDE 0.9% 250ML 250 ML ONE (20:03)
[2021-08-11] MEDS ORDERED: ONDANSETRON HCL INJ 2MG/ML 2ML 2 MG/ML VIAL IV PRN (20:45)
[2021-08-11] MEDS: CEFEPIME 1 GM in SODIUM CHLORIDE 0.9% 50ML 50 ML IV SCH (21:01)
[2021-08-11 21:03] LABS: CLARITY,URINE SL CLOUDY (CLEAR); COLOR,URINE STRAW (YELLOW); KETONES,URINE NEGATIVE (NEGATIVE); LEUKOCYTE ESTERASE ,URINE NEGATIVE (NEGATIVE); NITRITE,URINE NEGATIVE (NEGATIVE); PROTEIN,URINE DIPSTICK NEGATIVE (NEGATIVE); URINE UROBILINOGEN 0.2 mg/dL (0.2 - 1)
[2021-08-11 22:00] VITALS: BP 143/54
[2021-08-11 22:13] VITALS: BP 143/54
[2021-08-11] MEDS: SODIUM CHLORIDE 0.9% 1000ML 1,000 ML IV SCH (23:44)
[2021-08-12] VITALS (8 sets, daily range): BP systolic 105–143; BP diastolic 42–54
[2021-08-12] MEDS ORDERED: CARBINOXAMINE MA4 MG PO (06:20)
[2021-08-12 08:12] LABS: BASOPHILS % 0.4 % (0.0-1.0); EOSINOPHILS # (AUTO) 0.1 (0.0-0.4); EOSINOPHILS % 4.5 % (0.0-6.0); HEMATOCRIT 24.1 % (38.2-49.6); HEMOGLOBIN 7.8 g/dL (14.0-18.0); LYMPHOCYTES # (AUTO) 0.5 (1.0-3.2); LYMPHOCYTES % 20.3 % (18.0-39.1); MEAN CORPUSCULAR HEMOGLOBIN 33.1 pg (28-32); MEAN CORPUSCULAR HGB CONC 32.4 g/dL (31-35); MEAN CORPUSCULAR VOLUME 102.1 fL (81-99); MONOCYTES # (AUTO) 0.1 (0.2-0.8); MONOCYTES % 3.8 % (4.4-11.3); NEUTROPHILS # (AUTO) 1.9 (2.1-6.9); NEUTROPHILS % 70.6 % (38.7-80.0); PLATELET COUNT 138 x10e3/uL (140-360); RED BLOOD COUNT 2.36 x10e6/uL (4.3-5.7); RED CELL DISTRIBUTION WIDTH 14.5 % (11.7-14.4)
[2021-08-12 08:31] LABS: ALBUMIN 2.9 g/dL (3.5-5.0); ALBUMIN/GLOBULIN RATIO 1.3 (0.8-2.0); ANION GAP 13.8 mmol/L (8-16); CALCIUM 8.3 mg/dL (8.4-10.2); CREATININE, SERUM 2.76 mg/dL (0.72-1.25); POTASSIUM 3.8 mmol/L (3.5-5.1)
[2021-08-12 08:49] LABS: CREATINE KINASE MB 2.9 ng/mL (0-5.0)
[2021-08-12] MEDS: CEFEPIME 1 GM in SODIUM CHLORIDE 0.9% 50ML 50 ML IV SCH (09:00)
[2021-08-12] MEDS: SODIUM CHLORIDE 0.9% 1000ML 1,000 ML IV SCH (13:32)
[2021-08-12 15:24] LABS: HEMATOCRIT 22.4 % (38.2-49.6); HEMOGLOBIN 7.4 g/dL (14.0-18.0)
[2021-08-12 15:48] LABS: CREATINE KINASE MB 2.3 ng/mL (0-5.0)
[2021-08-12 19:43] LABS: FREE THYROXINE INDEX 0.2959287 (1.4-3.8)
[2021-08-12 19:49] LABS: AMMONIA 42 UG/DL (31-123)
[2021-08-13] VITALS (8 sets, daily range): BP systolic 120–136; BP diastolic 47–55
[2021-08-13 00:09] LABS: % IRON SATURATION 30 % (15-50); IRON 65 ug/dL (65-175); TOTAL IRON BINDING CAPACITY 220 ug/dL (261-478); TRANSFERRIN 157 mg/dL (174-364)
[2021-08-13] MEDS ORDERED: LEVOTHYROXINE100 MCG PO (00:41)
[2021-08-13] MEDS ORDERED: METFORMIN HCL1000 MG PO (00:41)
[2021-08-13] MEDS ORDERED: PRAVASTATIN SOD80 MG PO (00:41)
[2021-08-13] MEDS ORDERED: ONDANSETRON HCL4 MG PO (00:41)
[2021-08-13] MEDS ORDERED: GLIPIZIDE ER10 MG PO (00:41)
[2021-08-13] MEDS: SODIUM CHLORIDE 0.9% 1000ML 1,000 ML IV SCH ×3 (06:20→21:59)
[2021-08-13 06:45] LABS: BASOPHILS % 0.8 % (0.0-1.0); EOSINOPHILS # (AUTO) 0.2 (0.0-0.4); HEMATOCRIT 22.1 % (38.2-49.6); HEMOGLOBIN 7.7 g/dL (14.0-18.0); LYMPHOCYTES # (AUTO) 0.6 (1.0-3.2); LYMPHOCYTES % 23.9 % (18.0-39.1); MEAN CORPUSCULAR HEMOGLOBIN 35.8 pg (28-32); MEAN CORPUSCULAR HGB CONC 34.8 g/dL (31-35); MEAN CORPUSCULAR VOLUME 102.8 fL (81-99); MONOCYTES # (AUTO) 0.1 (0.2-0.8); MONOCYTES % 4.6 % (4.4-11.3); NEUTROPHILS # (AUTO) 1.5 (2.1-6.9); NEUTROPHILS % 61.9 % (38.7-80.0); PLATELET COUNT 137 x10e3/uL (140-360); RED BLOOD COUNT 2.15 x10e6/uL (4.3-5.7); RED CELL DISTRIBUTION WIDTH 14.6 % (11.7-14.4)
[2021-08-13 07:17] LABS: ALBUMIN 2.9 g/dL (3.5-5.0); ALBUMIN/GLOBULIN RATIO 1.4 (0.8-2.0); ANION GAP 13.5 mmol/L (8-16); CALCIUM 8.1 mg/dL (8.4-10.2); CREATININE, SERUM 2.49 mg/dL (0.72-1.25); POTASSIUM 3.5 mmol/L (3.5-5.1)
[2021-08-13 07:20] LABS: BAND NEUTROPHILS % (MANUAL) 1 %; EOSINOPHILS % (MANUAL) 7 % (0-7); LYMPHOCYTES % (MANUAL) 35 % (19-48); MONOCYTES % (MANUAL) 3 % (3.4-9.0); NEUTROPHILS % (MANUAL) 54 % (40-74)
[2021-08-13 07:21] LABS: ANISOCYTOSIS MODERATE; PLATELET ESTIMATE SLIGHTLY DECREASED; PLATELET MORPHOLOGY COMMENT FEW LARGE; RBC MORPHOLOGY COMMENT ABNORMAL
[2021-08-13] MEDS: CEFEPIME 1 GM in SODIUM CHLORIDE 0.9% 50ML 50 ML IV SCH (08:55)
[2021-08-13] MEDS: CYANOCOBALAMIN INJ 1,000 MCG/ML VIAL IM SCH (08:55)
[2021-08-13] MEDS ORDERED: LEVOTHYROXINE SODIUM 100 MCG TAB PO NR (11:15)
[2021-08-13] MEDS ORDERED: CARBINOXAMINE MALEATE 4 MG PO PRN (12:15)
[2021-08-13] MEDS: HYDRALAZINE HCL 25 MG TAB PO SCH (17:00)
[2021-08-13] MEDS: CARVEDILOL 12.5 MG TAB PO SCH (17:00)
[2021-08-13] MEDS: TAMSULOSIN HCL 0.4 MG CAP PO SCH (21:59)
[2021-08-13] MEDS: SIMVASTATIN 40 MG TAB PO SCH (21:59)
[2021-08-14] VITALS (9 sets, daily range): BP systolic 93–133; BP diastolic 33–71
[2021-08-14] MEDS ORDERED: LEVOTHYROXINE SODIUM 100 MCG TAB PO SCH (06:00)
[2021-08-14] MEDS: CYANOCOBALAMIN INJ 1,000 MCG/ML VIAL IM SCH (09:00)
[2021-08-14] MEDS: CARVEDILOL 12.5 MG TAB PO SCH ×2 (09:00→17:00)
[2021-08-14] MEDS: CEFTRIAXONE 1 GM in SODIUM CHLORIDE 0.9% 50ML 50 ML IV SCH (09:00)
[2021-08-14] MEDS: HYDRALAZINE HCL 25 MG TAB PO SCH ×2 (09:00→17:00)
[2021-08-14] MEDS: FINASTERIDE 5 MG TAB PO SCH (09:00)
[2021-08-14] MEDS ORDERED: LIDOCAINE HCL 1% LOCAL INJ 20 ML VIAL ONE (14:42)
[2021-08-14] MEDS: SODIUM CHLORIDE 0.9% 1000ML 1,000 ML IV SCH (15:25)
[2021-08-14 16:50] LABS: APPEARANCE,CSF HAZY (CLEAR)
[2021-08-14 16:51] LABS: COLOR,CSF COLORLESS (COLORLESS); TUBE NUMBER 3
[2021-08-14 16:58] LABS: WHITE BLOOD CELL,CSF 1 cells/uL (0-5)
[2021-08-14 17:41] LABS: TOTAL PROTEIN,CSF 101.2 mg/dL (15-40)
[2021-08-14 18:15] LABS: FREE T4 (FREE THYROXINE) < 0.40 ng/dL (0.8-1.8)
[2021-08-14] MEDS: TAMSULOSIN HCL 0.4 MG CAP PO SCH (21:10)
[2021-08-14] MEDS: SIMVASTATIN 40 MG TAB PO SCH (21:10)
[2021-08-15] VITALS (8 sets, daily range): BP systolic 126–148; BP diastolic 39–75
[2021-08-15 06:11] LABS: BASOPHILS % 2.3 % (0.0-1.0); EOSINOPHILS # (AUTO) 0.1 (0.0-0.4); EOSINOPHILS % 7.8 % (0.0-6.0); HEMATOCRIT 24.6 % (38.2-49.6); LYMPHOCYTES # (AUTO) 0.5 (1.0-3.2); LYMPHOCYTES % 36.4 % (18.0-39.1); MEAN CORPUSCULAR HEMOGLOBIN 33.8 pg (28-32); MEAN CORPUSCULAR HGB CONC 32.5 g/dL (31-35); MEAN CORPUSCULAR VOLUME 103.8 fL (81-99); MONOCYTES # (AUTO) 0.1 (0.2-0.8); MONOCYTES % 5.4 % (4.4-11.3); NEUTROPHILS # (AUTO) 0.6 (2.1-6.9); NEUTROPHILS % 45.8 % (38.7-80.0); PLATELET COUNT 121 x10e3/uL (140-360); RED BLOOD COUNT 2.37 x10e6/uL (4.3-5.7); RED CELL DISTRIBUTION WIDTH 14.3 % (11.7-14.4)
[2021-08-15 06:30] LABS: INR 1.24; PROTHROMBIN TIME 15.9 seconds (11.9-14.5)
[2021-08-15] MEDS: LEVOTHYROXINE SODIUM 125 MCG TAB PO SCH (06:35)
[2021-08-15] MEDS: SODIUM CHLORIDE 0.9% 1000ML 1,000 ML IV SCH ×2 (06:35→12:10)
[2021-08-15 06:38] LABS: ANION GAP 11.6 mmol/L (8-16); CALCIUM 7.8 mg/dL (8.4-10.2); CREATININE, SERUM 1.85 mg/dL (0.72-1.25); POTASSIUM 3.6 mmol/L (3.5-5.1)
[2021-08-15 08:44] LABS: EOSINOPHILS % (MANUAL) 6 % (0-7); LYMPHOCYTES % (MANUAL) 34 % (19-48); MONOCYTES % (MANUAL) 2 % (3.4-9.0); NEUTROPHILS % (MANUAL) 57 % (40-74)
[2021-08-15 08:45] LABS: PLATELET ESTIMATE SLIGHTLY DECREASED; PLATELET MORPHOLOGY COMMENT NORMAL; RBC MORPHOLOGY COMMENT ABNORMAL
[2021-08-15] MEDS: CEFTRIAXONE 1 GM in SODIUM CHLORIDE 0.9% 50ML 50 ML IV SCH (09:25)
[2021-08-15] MEDS: HYDRALAZINE HCL 25 MG TAB PO SCH ×2 (09:31→16:55)
[2021-08-15] MEDS: IRON SUCROSE 100 MG in SODIUM CHLORIDE 0.9% 100 ML 100 ML IV SCH (09:31)
[2021-08-15] MEDS: FINASTERIDE 5 MG TAB PO SCH (09:32)
[2021-08-15] MEDS: CARVEDILOL 12.5 MG TAB PO SCH ×2 (09:32→16:57)
[2021-08-15] MEDS: CYANOCOBALAMIN INJ 1,000 MCG/ML VIAL IM SCH (09:32)
[2021-08-15] MEDS: BALSAM PERU/CASTOR OIL 60 GM OINT...G. TP SCH (12:10)
[2021-08-15] MEDS: SIMVASTATIN 40 MG TAB PO SCH (21:05)
[2021-08-15] MEDS: TAMSULOSIN HCL 0.4 MG CAP PO SCH (21:05)
[2021-08-16] VITALS (8 sets, daily range): BP systolic 116–144; BP diastolic 38–85
[2021-08-16 05:08] LABS: BASOPHILS % 1.5 % (0.0-1.0); EOSINOPHILS # (AUTO) 0.1 (0.0-0.4); EOSINOPHILS % 6.6 % (0.0-6.0); HEMATOCRIT 22.6 % (38.2-49.6); HEMOGLOBIN 7.7 g/dL (14.0-18.0); LYMPHOCYTES # (AUTO) 0.5 (1.0-3.2); MEAN CORPUSCULAR HEMOGLOBIN 34.5 pg (28-32); MEAN CORPUSCULAR HGB CONC 34.1 g/dL (31-35); MEAN CORPUSCULAR VOLUME 101.3 fL (81-99); MONOCYTES # (AUTO) 0.1 (0.2-0.8); MONOCYTES % 5.8 % (4.4-11.3); NEUTROPHILS # (AUTO) 0.6 (2.1-6.9); NEUTROPHILS % 46.6 % (38.7-80.0); PLATELET COUNT 122 x10e3/uL (140-360); RED BLOOD COUNT 2.23 x10e6/uL (4.3-5.7)
[2021-08-16 05:26] LABS: ALBUMIN 2.5 g/dL (3.5-5.0); ALBUMIN/GLOBULIN RATIO 1.1 (0.8-2.0); ANION GAP 8.7 mmol/L (8-16); CREATININE, SERUM 1.73 mg/dL (0.72-1.25); POTASSIUM 3.7 mmol/L (3.5-5.1)
[2021-08-16] MEDS: LEVOTHYROXINE SODIUM 125 MCG TAB PO SCH (05:56)
[2021-08-16] MEDS: SODIUM CHLORIDE 0.9% 1000ML 1,000 ML IV SCH ×2 (06:21→21:28)
[2021-08-16 08:15] LABS: BAND NEUTROPHILS % (MANUAL) 2 %; EOSINOPHILS % (MANUAL) 6 % (0-7); LYMPHOCYTES % (MANUAL) 40 % (19-48); MONOCYTES % (MANUAL) 2 % (3.4-9.0); NEUTROPHILS % (MANUAL) 48 % (40-74)
[2021-08-16 08:16] LABS: PLATELET ESTIMATE SLIGHTLY DECREASED; PLATELET MORPHOLOGY COMMENT NORMAL; RBC MORPHOLOGY COMMENT NORMAL
[2021-08-16] MEDS: CEFTRIAXONE 1 GM in SODIUM CHLORIDE 0.9% 50ML 50 ML IV SCH (08:59)
[2021-08-16] MEDS: CYANOCOBALAMIN INJ 1,000 MCG/ML VIAL IM SCH (08:59)
[2021-08-16] MEDS: HYDRALAZINE HCL 25 MG TAB PO SCH ×2 (09:00→16:07)
[2021-08-16] MEDS: FINASTERIDE 5 MG TAB PO SCH (09:00)
[2021-08-16] MEDS: GUAIFENESIN/CODEINE 5 ML LIQD PO PRN (09:00)
[2021-08-16] MEDS: CARVEDILOL 12.5 MG TAB PO SCH ×2 (09:00→16:07)
[2021-08-16] MEDS: IRON SUCROSE 100 MG in SODIUM CHLORIDE 0.9% 100 ML 100 ML IV SCH (10:00)
[2021-08-16] MEDS: BALSAM PERU/CASTOR OIL 60 GM OINT...G. TP SCH (16:06)
[2021-08-16] MEDS: TAMSULOSIN HCL 0.4 MG CAP PO SCH (22:18)
[2021-08-16] MEDS: SIMVASTATIN 40 MG TAB PO SCH (22:18)
[2021-08-17] VITALS (7 sets, daily range): BP systolic 105–152; BP diastolic 40–61
[2021-08-17] MEDS: GUAIFENESIN/CODEINE 5 ML LIQD PO PRN (04:29)
[2021-08-17 05:04] LABS: BASOPHILS % 1.5 % (0.0-1.0); EOSINOPHILS # (AUTO) 0.1 (0.0-0.4); EOSINOPHILS % 7.2 % (0.0-6.0); HEMATOCRIT 24.6 % (38.2-49.6); HEMOGLOBIN 8.2 g/dL (14.0-18.0); LYMPHOCYTES # (AUTO) 0.7 (1.0-3.2); LYMPHOCYTES % 34.5 % (18.0-39.1); MEAN CORPUSCULAR HEMOGLOBIN 33.9 pg (28-32); MEAN CORPUSCULAR HGB CONC 33.3 g/dL (31-35); MEAN CORPUSCULAR VOLUME 101.7 fL (81-99); MONOCYTES # (AUTO) 0.2 (0.2-0.8); MONOCYTES % 9.8 % (4.4-11.3); NEUTROPHILS # (AUTO) 0.8 (2.1-6.9); NEUTROPHILS % 41.3 % (38.7-80.0); PLATELET COUNT 174 x10e3/uL (140-360); RED BLOOD COUNT 2.42 x10e6/uL (4.3-5.7); RED CELL DISTRIBUTION WIDTH 13.9 % (11.7-14.4)
[2021-08-17 05:32] LABS: ALBUMIN 2.5 g/dL (3.5-5.0); ALBUMIN/GLOBULIN RATIO 1.1 (0.8-2.0); ANION GAP 12.7 mmol/L (8-16); CALCIUM 7.8 mg/dL (8.4-10.2); CREATININE, SERUM 1.61 mg/dL (0.72-1.25); POTASSIUM 3.7 mmol/L (3.5-5.1)
[2021-08-17] MEDS: LEVOTHYROXINE SODIUM 125 MCG TAB PO SCH (06:00)
[2021-08-17 06:53] LABS: BAND NEUTROPHILS % (MANUAL) 1 %; EOSINOPHILS % (MANUAL) 6 % (0-7); LYMPHOCYTES % (MANUAL) 38 % (19-48); MONOCYTES % (MANUAL) 11 % (3.4-9.0); MYELOCYTES % (MANUAL) 1 % (0-0); NEUTROPHILS % (MANUAL) 43 % (40-74)
[2021-08-17 06:54] LABS: PLATELET ESTIMATE ADEQUATE; PLATELET MORPHOLOGY COMMENT NORMAL
[2021-08-17 06:55] LABS: RBC MORPHOLOGY COMMENT NORMAL
[2021-08-17] MEDS: CYANOCOBALAMIN INJ 1,000 MCG/ML VIAL IM SCH (10:14)
[2021-08-17] MEDS: CEFTRIAXONE 1 GM in SODIUM CHLORIDE 0.9% 50ML 50 ML IV SCH (10:14)
[2021-08-17] MEDS: SODIUM CHLORIDE 0.9% 1000ML 1,000 ML IV SCH (10:21)
[2021-08-17] MEDS: BALSAM PERU/CASTOR OIL 60 GM OINT...G. TP SCH (10:21)
[2021-08-17] MEDS: FINASTERIDE 5 MG TAB PO SCH (10:21)
[2021-08-17] MEDS: HYDRALAZINE HCL 25 MG TAB PO SCH ×2 (10:22→16:29)
[2021-08-17] MEDS: CARVEDILOL 12.5 MG TAB PO SCH ×2 (10:24→16:29)
[2021-08-17] MEDS ORDERED: FILGRASTIM 300 MCG/ML VIAL SC ONE (10:45)
[2021-08-17] MEDS: IRON SUCROSE 100 MG in SODIUM CHLORIDE 0.9% 100 ML 100 ML IV SCH (12:37)
[2021-08-17] MEDS ORDERED: ONDANSETRON HCL 4 MG ORAL DISINTEGRATING TAB PO PRN (17:45)
[2021-08-17] MEDS: SIMVASTATIN 40 MG TAB PO SCH (22:17)
[2021-08-17] MEDS: TAMSULOSIN HCL 0.4 MG CAP PO SCH (22:17)
[2021-08-18] VITALS (9 sets, daily range): BP systolic 118–155; BP diastolic 43–64
[2021-08-18] MEDS: SODIUM CHLORIDE 0.9% 1000ML 1,000 ML IV SCH ×2 (01:44→12:45)
[2021-08-18] MEDS: LEVOTHYROXINE SODIUM 125 MCG TAB PO SCH (06:19)
[2021-08-18 06:37] LABS: BASOPHILS % 0.8 % (0.0-1.0); EOSINOPHILS # (AUTO) 0.1 (0.0-0.4); EOSINOPHILS % 3.8 % (0.0-6.0); HEMATOCRIT 23.7 % (38.2-49.6); LYMPHOCYTES # (AUTO) 0.9 (1.0-3.2); LYMPHOCYTES % 23.8 % (18.0-39.1); MEAN CORPUSCULAR HEMOGLOBIN 34.2 pg (28-32); MEAN CORPUSCULAR HGB CONC 33.8 g/dL (31-35); MEAN CORPUSCULAR VOLUME 101.3 fL (81-99); MONOCYTES # (AUTO) 0.4 (0.2-0.8); MONOCYTES % 11.1 % (4.4-11.3); NEUTROPHILS % 55.1 % (38.7-80.0); PLATELET COUNT 175 x10e3/uL (140-360); RED BLOOD COUNT 2.34 x10e6/uL (4.3-5.7)
[2021-08-18 06:54] LABS: ALBUMIN 2.6 g/dL (3.5-5.0); ALBUMIN/GLOBULIN RATIO 1.2 (0.8-2.0); ANION GAP 9.8 mmol/L (8-16); CREATININE, SERUM 1.6 mg/dL (0.72-1.25); POTASSIUM 3.8 mmol/L (3.5-5.1)
[2021-08-18 08:01] LABS: BAND NEUTROPHILS % (MANUAL) 8 %; EOSINOPHILS % (MANUAL) 5 % (0-7); LYMPHOCYTES % (MANUAL) 27 % (19-48); MONOCYTES % (MANUAL) 13 % (3.4-9.0); NEUTROPHILS % (MANUAL) 46 % (40-74)
[2021-08-18 08:02] LABS: PLATELET ESTIMATE ADEQUATE; PLATELET MORPHOLOGY COMMENT FEW LARGE; RBC MORPHOLOGY COMMENT NORMAL
[2021-08-18] MEDS: HYDRALAZINE HCL 25 MG TAB PO SCH ×2 (09:28→16:43)
[2021-08-18] MEDS: BALSAM PERU/CASTOR OIL 60 GM OINT...G. TP SCH (09:28)
[2021-08-18] MEDS: FINASTERIDE 5 MG TAB PO SCH (09:28)
[2021-08-18] MEDS: CARVEDILOL 12.5 MG TAB PO SCH ×2 (09:28→16:43)
[2021-08-18] MEDS: CEFTRIAXONE 1 GM in SODIUM CHLORIDE 0.9% 50ML 50 ML IV SCH (09:28)
[2021-08-18] MEDS: CYANOCOBALAMIN INJ 1,000 MCG/ML VIAL IM SCH (09:28)
[2021-08-18] MEDS: IRON SUCROSE 100 MG in SODIUM CHLORIDE 0.9% 100 ML 100 ML IV SCH (11:25)
[2021-08-18] MEDS: SIMVASTATIN 40 MG TAB PO SCH (20:43)
[2021-08-18] MEDS: TAMSULOSIN HCL 0.4 MG CAP PO SCH (20:43)
[2021-08-19] VITALS (8 sets, daily range): BP systolic 100–155; BP diastolic 46–64
[2021-08-19] MEDS: SODIUM CHLORIDE 0.9% 1000ML 1,000 ML IV SCH (02:31)
[2021-08-19 04:59] LABS: BASOPHILS # (AUTO) 0.1 (0.0-0.1); BASOPHILS % 0.9 % (0.0-1.0); EOSINOPHILS # (AUTO) 0.2 (0.0-0.4); EOSINOPHILS % 2.7 % (0.0-6.0); HEMATOCRIT 25.6 % (38.2-49.6); HEMOGLOBIN 8.4 g/dL (14.0-18.0); LYMPHOCYTES # (AUTO) 1.3 (1.0-3.2); LYMPHOCYTES % 20.2 % (18.0-39.1); MEAN CORPUSCULAR HEMOGLOBIN 33.9 pg (28-32); MEAN CORPUSCULAR HGB CONC 32.8 g/dL (31-35); MEAN CORPUSCULAR VOLUME 103.2 fL (81-99); MONOCYTES # (AUTO) 0.7 (0.2-0.8); MONOCYTES % 11.5 % (4.4-11.3); NEUTROPHILS # (AUTO) 3.3 (2.1-6.9); NEUTROPHILS % 52.4 % (38.7-80.0); PLATELET COUNT 182 x10e3/uL (140-360); RED BLOOD COUNT 2.48 x10e6/uL (4.3-5.7); RED CELL DISTRIBUTION WIDTH 14.2 % (11.7-14.4)
[2021-08-19] MEDS: LEVOTHYROXINE SODIUM 125 MCG TAB PO SCH (05:58)
[2021-08-19 08:00] LABS: BAND NEUTROPHILS % (MANUAL) 28 %; EOSINOPHILS % (MANUAL) 4 % (0-7); LYMPHOCYTES % (MANUAL) 22 % (19-48); METAMYELOCYTES % (MANUAL) 5 % (0-0); MONOCYTES % (MANUAL) 8 % (3.4-9.0); MYELOCYTES % (MANUAL) 3 % (0-0); NEUTROPHILS % (MANUAL) 28 % (40-74); NUCLEATED RED BLOOD CELLS 2; PROMYELOCYTES % (MANUAL) 1 % (0-0)
[2021-08-19 08:02] LABS: PLATELET ESTIMATE ADEQUATE; PLATELET MORPHOLOGY COMMENT NORMAL; POLYCHROMASIA FEW
[2021-08-19 08:04] LABS: RBC MORPHOLOGY COMMENT NORMAL
[2021-08-19] MEDS: HYDRALAZINE HCL 25 MG TAB PO SCH ×2 (09:00→17:00)
[2021-08-19] MEDS: CEFTRIAXONE 1 GM in SODIUM CHLORIDE 0.9% 50ML 50 ML IV SCH (09:00)
[2021-08-19] MEDS: BALSAM PERU/CASTOR OIL 60 GM OINT...G. TP SCH (09:00)
[2021-08-19] MEDS: IRON SUCROSE 100 MG in SODIUM CHLORIDE 0.9% 100 ML 100 ML IV SCH (09:00)
[2021-08-19] MEDS: CYANOCOBALAMIN INJ 1,000 MCG/ML VIAL IM SCH (09:07)
[2021-08-19] MEDS: CARVEDILOL 12.5 MG TAB PO SCH ×2 (09:07→17:00)
[2021-08-19] MEDS: FINASTERIDE 5 MG TAB PO SCH (09:07)
[2021-08-19] MEDS: TAMSULOSIN HCL 0.4 MG CAP PO SCH (20:16)
[2021-08-19] MEDS: SIMVASTATIN 40 MG TAB PO SCH (20:16)
[2021-08-20] VITALS (9 sets, daily range): BP systolic 110–147; BP diastolic 46–70
[2021-08-20] MEDS: LEVOTHYROXINE SODIUM 125 MCG TAB PO SCH (06:00)
[2021-08-20 06:17] LABS: BASOPHILS # (AUTO) 0.1 (0.0-0.1); BASOPHILS % 0.7 % (0.0-1.0); EOSINOPHILS # (AUTO) 0.2 (0.0-0.4); EOSINOPHILS % 1.6 % (0.0-6.0); HEMATOCRIT 24.7 % (38.2-49.6); HEMOGLOBIN 7.9 g/dL (14.0-18.0); LYMPHOCYTES # (AUTO) 1.7 (1.0-3.2); MEAN CORPUSCULAR HEMOGLOBIN 33.1 pg (28-32); MEAN CORPUSCULAR VOLUME 103.3 fL (81-99); MONOCYTES % 8.8 % (4.4-11.3); NEUTROPHILS # (AUTO) 7.2 (2.1-6.9); NEUTROPHILS % 61.5 % (38.7-80.0); PLATELET COUNT 208 x10e3/uL (140-360); RED BLOOD COUNT 2.39 x10e6/uL (4.3-5.7); RED CELL DISTRIBUTION WIDTH 14.4 % (11.7-14.4)
[2021-08-20 06:53] LABS: ALBUMIN 2.4 g/dL (3.5-5.0); ALBUMIN/GLOBULIN RATIO 1.2 (0.8-2.0); ANION GAP 9.5 mmol/L (8-16); CALCIUM 7.6 mg/dL (8.4-10.2); CREATININE, SERUM 1.56 mg/dL (0.72-1.25); POTASSIUM 3.5 mmol/L (3.5-5.1)
[2021-08-20] MEDS: IRON SUCROSE 100 MG in SODIUM CHLORIDE 0.9% 100 ML 100 ML IV SCH (09:13)
[2021-08-20] MEDS: CYANOCOBALAMIN INJ 1,000 MCG/ML VIAL IM SCH (09:15)
[2021-08-20] MEDS: BALSAM PERU/CASTOR OIL 60 GM OINT...G. TP SCH (09:18)
[2021-08-20] MEDS: CARVEDILOL 12.5 MG TAB PO SCH ×2 (09:18→16:12)
[2021-08-20] MEDS: HYDRALAZINE HCL 25 MG TAB PO SCH ×2 (09:18→16:11)
[2021-08-20] MEDS: FINASTERIDE 5 MG TAB PO SCH (09:18)
[2021-08-20 10:39] LABS: BAND NEUTROPHILS % (MANUAL) 30 %; EOSINOPHILS % (MANUAL) 2 % (0-7); LYMPHOCYTES % (MANUAL) 13 % (19-48); METAMYELOCYTES % (MANUAL) 6 % (0-0); MONOCYTES % (MANUAL) 12 % (3.4-9.0); MYELOCYTES % (MANUAL) 1 % (0-0); NEUTROPHILS % (MANUAL) 33 % (40-74); NUCLEATED RED BLOOD CELLS 1
[2021-08-20 10:43] LABS: ANISOCYTOSIS SLIGHT; PLATELET ESTIMATE ADEQUATE; PLATELET MORPHOLOGY COMMENT NORMAL; RBC MORPHOLOGY COMMENT NORMAL
[2021-08-20] MEDS ORDERED: CITRATE OF MAGNESIA 300ML BOTTLE PO ONE (11:15)
[2021-08-20] MEDS ORDERED: FUROSEMIDE INJ 10 MG/ML 4 ML VIAL IV ONE (11:45)
[2021-08-20] MEDS: TAMSULOSIN HCL 0.4 MG CAP PO SCH (21:00)
[2021-08-20] MEDS: SIMVASTATIN 40 MG TAB PO SCH (21:00)
[2021-08-21] VITALS (8 sets, daily range): BP systolic 116–145; BP diastolic 44–62
[2021-08-21 05:57] LABS: BASOPHILS # (AUTO) 0.1 (0.0-0.1); BASOPHILS % 0.6 % (0.0-1.0); EOSINOPHILS # (AUTO) 0.2 (0.0-0.4); EOSINOPHILS % 1.3 % (0.0-6.0); HEMATOCRIT 23.2 % (38.2-49.6); HEMOGLOBIN 7.4 g/dL (14.0-18.0); LYMPHOCYTES # (AUTO) 1.5 (1.0-3.2); LYMPHOCYTES % 11.9 % (18.0-39.1); MEAN CORPUSCULAR HEMOGLOBIN 33.5 pg (28-32); MEAN CORPUSCULAR HGB CONC 31.9 g/dL (31-35); MONOCYTES # (AUTO) 1.1 (0.2-0.8); MONOCYTES % 8.2 % (4.4-11.3); NEUTROPHILS # (AUTO) 7.6 (2.1-6.9); NEUTROPHILS % 59.2 % (38.7-80.0); PLATELET COUNT 215 x10e3/uL (140-360); RED BLOOD COUNT 2.21 x10e6/uL (4.3-5.7); RED CELL DISTRIBUTION WIDTH 14.6 % (11.7-14.4)
[2021-08-21] MEDS: LEVOTHYROXINE SODIUM 125 MCG TAB PO SCH ×2 (05:58→21:34)
[2021-08-21 06:29] LABS: ANION GAP 10.3 mmol/L (8-16); CALCIUM 7.8 mg/dL (8.4-10.2); CREATININE, SERUM 1.59 mg/dL (0.72-1.25); MAGNESIUM 2.4 MG/DL (1.3-2.1); POTASSIUM 3.3 mmol/L (3.5-5.1)
[2021-08-21] MEDS: BALSAM PERU/CASTOR OIL 60 GM OINT...G. TP SCH (08:06)
[2021-08-21] MEDS: CARVEDILOL 12.5 MG TAB PO SCH ×2 (08:07→16:31)
[2021-08-21] MEDS: FINASTERIDE 5 MG TAB PO SCH (08:07)
[2021-08-21] MEDS: IRON SUCROSE 100 MG in SODIUM CHLORIDE 0.9% 100 ML 100 ML IV SCH (08:08)
[2021-08-21] MEDS: HYDRALAZINE HCL 25 MG TAB PO SCH ×2 (08:08→16:31)
[2021-08-21] MEDS: CYANOCOBALAMIN INJ 1,000 MCG/ML VIAL IM SCH (08:09)
[2021-08-21 08:56] LABS: BAND NEUTROPHILS % (MANUAL) 4 %; LYMPHOCYTES % (MANUAL) 10 % (19-48); METAMYELOCYTES % (MANUAL) 4 % (0-0); MONOCYTES % (MANUAL) 3 % (3.4-9.0); MYELOCYTES % (MANUAL) 12 % (0-0); NEUTROPHILS % (MANUAL) 63 % (40-74); NUCLEATED RED BLOOD CELLS 2; PLATELET ESTIMATE ADEQUATE; PLATELET MORPHOLOGY COMMENT NORMAL; PROMYELOCYTES % (MANUAL) 4 % (0-0); RBC MORPHOLOGY COMMENT NORMAL
[2021-08-21] MEDS ORDERED: POTASSIUM CHLORIDE 10MEQ EA PO ONE (09:15)
[2021-08-21] MEDS: CEFTRIAXONE 1 GM in SODIUM CHLORIDE 0.9% 50ML 50 ML IV SCH (09:23)
[2021-08-21] MEDS: TAMSULOSIN HCL 0.4 MG CAP PO SCH (21:34)
[2021-08-21] MEDS: SIMVASTATIN 40 MG TAB PO SCH (21:34)
[2021-08-22] VITALS (11 sets, daily range): BP systolic 123–156; BP diastolic 54–60
[2021-08-22 05:02] LABS: BASOPHILS # (AUTO) 0.1 (0.0-0.1); BASOPHILS % 0.6 % (0.0-1.0); EOSINOPHILS # (AUTO) 0.2 (0.0-0.4); EOSINOPHILS % 1.4 % (0.0-6.0); HEMATOCRIT 22.2 % (38.2-49.6); HEMOGLOBIN 7.1 g/dL (14.0-18.0); LYMPHOCYTES # (AUTO) 1.5 (1.0-3.2); LYMPHOCYTES % 12.1 % (18.0-39.1); MEAN CORPUSCULAR HEMOGLOBIN 33.6 pg (28-32); MEAN CORPUSCULAR VOLUME 105.2 fL (81-99); MONOCYTES % 8.2 % (4.4-11.3); NEUTROPHILS # (AUTO) 6.8 (2.1-6.9); NEUTROPHILS % 54.3 % (38.7-80.0); PLATELET COUNT 184 x10e3/uL (140-360); RED BLOOD COUNT 2.11 x10e6/uL (4.3-5.7); RED CELL DISTRIBUTION WIDTH 14.9 % (11.7-14.4)
[2021-08-22 05:19] LABS: ANION GAP 9.6 mmol/L (8-16); CALCIUM 7.9 mg/dL (8.4-10.2); CREATININE, SERUM 1.67 mg/dL (0.72-1.25); POTASSIUM 3.6 mmol/L (3.5-5.1)
[2021-08-22] MEDS: CYANOCOBALAMIN INJ 1,000 MCG/ML VIAL IM SCH (08:26)
[2021-08-22] MEDS: CEFTRIAXONE 1 GM in SODIUM CHLORIDE 0.9% 50ML 50 ML IV SCH (08:26)
[2021-08-22] MEDS: HYDRALAZINE HCL 25 MG TAB PO SCH ×2 (08:27→17:13)
[2021-08-22] MEDS: IRON SUCROSE 100 MG in SODIUM CHLORIDE 0.9% 100 ML 100 ML IV SCH (08:27)
[2021-08-22] MEDS: CARVEDILOL 12.5 MG TAB PO SCH ×2 (08:27→17:12)
[2021-08-22] MEDS: BALSAM PERU/CASTOR OIL 60 GM OINT...G. TP SCH (08:28)
[2021-08-22] MEDS: FINASTERIDE 5 MG TAB PO SCH (08:28)
[2021-08-22 09:26] LABS: BAND NEUTROPHILS % (MANUAL) 5 %; EOSINOPHILS % (MANUAL) 4 % (0-7); LYMPHOCYTES % (MANUAL) 21 % (19-48); METAMYELOCYTES % (MANUAL) 4 % (0-0); MONOCYTES % (MANUAL) 5 % (3.4-9.0); MYELOCYTES % (MANUAL) 3 % (0-0); NEUTROPHILS % (MANUAL) 57 % (40-74); NUCLEATED RED BLOOD CELLS 1; PLATELET ESTIMATE ADEQUATE; PLATELET MORPHOLOGY COMMENT FEW LARGE; RBC MORPHOLOGY COMMENT NORMAL
[2021-08-22] MEDS ORDERED: SODIUM CHLORIDE 0.9% 250ML 250 ML IV ONE (10:00)
[2021-08-22] MEDS: SODIUM CHLORIDE 0.9% 1000ML 1,000 ML IV SCH (12:42)
[2021-08-22] MEDS ORDERED: DIPHENHYDRAMINE HCL 25 MG CAP PO PRN (13:00)
[2021-08-22] MEDS ORDERED: ACETAMINOPHEN 325 MG TAB PO PRN (13:00)
[2021-08-22] MEDS ORDERED: SODIUM CHLORIDE 0.9% 250ML 250 ML ONE (14:02)
[2021-08-22] MEDS: IMMU GLOBULIN GAMMA IV SCH (17:01)
[2021-08-22] MEDS: ENOXAPARIN SOD INJ 40 MG/0.4 ML SYR SC SCH (17:08)
[2021-08-22] MEDS ORDERED: IOPAMIDOL 370 MG/ML 200 ML INFUS..BTL INJ ONE (18:47)
[2021-08-22] MEDS ORDERED: SODIUM CHLORIDE 0.9% 100 ML ONE (18:47)
[2021-08-22] MEDS ORDERED: MAGNESIUM HYDROXIDE 30 ML UDC PO ONE (23:00)
[2021-08-22] MEDS: TAMSULOSIN HCL 0.4 MG CAP PO SCH (23:01)
[2021-08-22] MEDS: SIMVASTATIN 40 MG TAB PO SCH (23:01)
[2021-08-23] VITALS (13 sets, daily range): BP systolic 118–169; BP diastolic 52–62
[2021-08-23] MEDS: SODIUM CHLORIDE 0.9% 1000ML 1,000 ML IV SCH (04:06)
[2021-08-23 05:05] LABS: BASOPHILS # (AUTO) 0.1 (0.0-0.1); BASOPHILS % 0.8 % (0.0-1.0); EOSINOPHILS # (AUTO) 0.2 (0.0-0.4); EOSINOPHILS % 1.6 % (0.0-6.0); HEMATOCRIT 24.1 % (38.2-49.6); HEMOGLOBIN 7.7 g/dL (14.0-18.0); LYMPHOCYTES # (AUTO) 1.2 (1.0-3.2); LYMPHOCYTES % 10.2 % (18.0-39.1); MEAN CORPUSCULAR HEMOGLOBIN 32.8 pg (28-32); MEAN CORPUSCULAR VOLUME 102.6 fL (81-99); MONOCYTES # (AUTO) 1.1 (0.2-0.8); MONOCYTES % 8.6 % (4.4-11.3); NEUTROPHILS % 49.4 % (38.7-80.0); PLATELET COUNT 157 x10e3/uL (140-360); RED BLOOD COUNT 2.35 x10e6/uL (4.3-5.7); RED CELL DISTRIBUTION WIDTH 16.1 % (11.7-14.4)
[2021-08-23 05:13] LABS: INR 1.36
[2021-08-23 05:15] LABS: PARTIAL THROMBOPLASTIN TIME 51.4 seconds (23.8-35.5)
[2021-08-23 05:22] LABS: ANION GAP 9.8 mmol/L (8-16); CALCIUM 7.8 mg/dL (8.4-10.2); CREATININE, SERUM 1.65 mg/dL (0.72-1.25); POTASSIUM 3.8 mmol/L (3.5-5.1)
[2021-08-23] MEDS: LEVOTHYROXINE SODIUM 125 MCG TAB PO SCH (06:33)
[2021-08-23] MEDS: CYANOCOBALAMIN INJ 1,000 MCG/ML VIAL IM SCH (08:59)
[2021-08-23] MEDS: CEFTRIAXONE 1 GM in SODIUM CHLORIDE 0.9% 50ML 50 ML IV SCH (09:00)
[2021-08-23] MEDS: CARVEDILOL 12.5 MG TAB PO SCH ×2 (09:01→16:37)
[2021-08-23] MEDS: BALSAM PERU/CASTOR OIL 60 GM OINT...G. TP SCH (09:01)
[2021-08-23] MEDS: IRON SUCROSE 100 MG in SODIUM CHLORIDE 0.9% 100 ML 100 ML IV SCH (09:01)
[2021-08-23] MEDS: FINASTERIDE 5 MG TAB PO SCH (09:01)
[2021-08-23] MEDS: HYDRALAZINE HCL 25 MG TAB PO SCH ×2 (09:01→16:36)
[2021-08-23 10:19] LABS: BAND NEUTROPHILS % (MANUAL) 4 %; LYMPHOCYTES % (MANUAL) 19 % (19-48); METAMYELOCYTES % (MANUAL) 8 % (0-0); MONOCYTES % (MANUAL) 5 % (3.4-9.0); MYELOCYTES % (MANUAL) 2 % (0-0); NEUTROPHILS % (MANUAL) 62 % (40-74); NUCLEATED RED BLOOD CELLS 1; PLATELET ESTIMATE ADEQUATE; PLATELET MORPHOLOGY COMMENT NORMAL; RBC MORPHOLOGY COMMENT NORMAL
[2021-08-23] MEDS: ENOXAPARIN SOD INJ 40 MG/0.4 ML SYR SC SCH (16:41)
[2021-08-23] MEDS ORDERED: FUROSEMIDE INJ 10 MG/ML 2 ML VIAL IV ONE (17:00)
[2021-08-23] MEDS: IMMU GLOBULIN GAMMA IV SCH (17:33)
[2021-08-23] MEDS: SIMVASTATIN 40 MG TAB PO SCH (23:06)
[2021-08-23] MEDS: TAMSULOSIN HCL 0.4 MG CAP PO SCH (23:06)
[2021-08-23] MEDS ORDERED: FUROSEMIDE INJ 10 MG/ML 4 ML VIAL IV ONE (23:15)
[2021-08-24] VITALS (13 sets, daily range): BP systolic 125–156; BP diastolic 50–64
[2021-08-24 05:00] LABS: BASOPHILS # (AUTO) 0.1 (0.0-0.1); BASOPHILS % 0.9 % (0.0-1.0); EOSINOPHILS # (AUTO) 0.2 (0.0-0.4); EOSINOPHILS % 1.6 % (0.0-6.0); HEMATOCRIT 25.4 % (38.2-49.6); HEMOGLOBIN 7.9 g/dL (14.0-18.0); LYMPHOCYTES # (AUTO) 1.5 (1.0-3.2); LYMPHOCYTES % 11.4 % (18.0-39.1); MEAN CORPUSCULAR HEMOGLOBIN 33.5 pg (28-32); MEAN CORPUSCULAR HGB CONC 31.1 g/dL (31-35); MEAN CORPUSCULAR VOLUME 107.6 fL (81-99); MONOCYTES # (AUTO) 1.3 (0.2-0.8); NEUTROPHILS # (AUTO) 6.4 (2.1-6.9); NEUTROPHILS % 50.1 % (38.7-80.0); PLATELET COUNT 115 x10e3/uL (140-360); RED BLOOD COUNT 2.36 x10e6/uL (4.3-5.7); RED CELL DISTRIBUTION WIDTH 16.4 % (11.7-14.4)
[2021-08-24] MEDS: LEVOTHYROXINE SODIUM 125 MCG TAB PO SCH (07:14)
[2021-08-24] MEDS: CYANOCOBALAMIN INJ 1,000 MCG/ML VIAL IM SCH (08:34)
[2021-08-24] MEDS: CEFTRIAXONE 1 GM in SODIUM CHLORIDE 0.9% 50ML 50 ML IV SCH (08:34)
[2021-08-24] MEDS: HYDRALAZINE HCL 25 MG TAB PO SCH ×2 (08:34→16:21)
[2021-08-24] MEDS: CARVEDILOL 12.5 MG TAB PO SCH ×2 (08:35→16:23)
[2021-08-24] MEDS: BALSAM PERU/CASTOR OIL 60 GM OINT...G. TP SCH (08:36)
[2021-08-24] MEDS: FINASTERIDE 5 MG TAB PO SCH (08:36)
[2021-08-24] MEDS: IRON SUCROSE 100 MG in SODIUM CHLORIDE 0.9% 100 ML 100 ML IV SCH (09:15)
[2021-08-24] MEDS ORDERED: FUROSEMIDE INJ 10 MG/ML 4 ML VIAL IV ONE (12:15)
[2021-08-24] MEDS: ENOXAPARIN SOD INJ 40 MG/0.4 ML SYR SC SCH (16:25)
[2021-08-24] MEDS: IMMU GLOBULIN GAMMA IV SCH (17:38)
[2021-08-24] MEDS: SIMVASTATIN 40 MG TAB PO SCH (22:17)
[2021-08-24] MEDS: TAMSULOSIN HCL 0.4 MG CAP PO SCH (22:17)
[2021-08-25] VITALS (13 sets, daily range): BP systolic 101–153; BP diastolic 41–65
[2021-08-25 05:02] LABS: BASOPHILS # (AUTO) 0.1 (0.0-0.1); BASOPHILS % 0.8 % (0.0-1.0); EOSINOPHILS # (AUTO) 0.2 (0.0-0.4); EOSINOPHILS % 1.4 % (0.0-6.0); HEMATOCRIT 22.2 % (38.2-49.6); HEMOGLOBIN 7.1 g/dL (14.0-18.0); LYMPHOCYTES # (AUTO) 1.1 (1.0-3.2); LYMPHOCYTES % 9.8 % (18.0-39.1); MEAN CORPUSCULAR HEMOGLOBIN 32.9 pg (28-32); MEAN CORPUSCULAR VOLUME 102.8 fL (81-99); MONOCYTES # (AUTO) 1.1 (0.2-0.8); MONOCYTES % 9.1 % (4.4-11.3); NEUTROPHILS # (AUTO) 5.9 (2.1-6.9); NEUTROPHILS % 51.6 % (38.7-80.0); PLATELET COUNT 109 x10e3/uL (140-360); RED BLOOD COUNT 2.16 x10e6/uL (4.3-5.7); RED CELL DISTRIBUTION WIDTH 16.1 % (11.7-14.4)
[2021-08-25 05:17] LABS: ANION GAP 8.5 mmol/L (8-16); CALCIUM 7.4 mg/dL (8.4-10.2); CREATININE, SERUM 1.65 mg/dL (0.72-1.25); POTASSIUM 3.5 mmol/L (3.5-5.1)
[2021-08-25] MEDS: LEVOTHYROXINE SODIUM 125 MCG TAB PO SCH (05:46)
[2021-08-25] MEDS: CYANOCOBALAMIN INJ 1,000 MCG/ML VIAL IM SCH (08:56)
[2021-08-25] MEDS: HYDRALAZINE HCL 25 MG TAB PO SCH ×2 (08:58→16:07)
[2021-08-25] MEDS: CEFTRIAXONE 1 GM in SODIUM CHLORIDE 0.9% 50ML 50 ML IV SCH (08:58)
[2021-08-25] MEDS: CARVEDILOL 12.5 MG TAB PO SCH ×2 (08:58→16:08)
[2021-08-25] MEDS: FINASTERIDE 5 MG TAB PO SCH (08:59)
[2021-08-25] MEDS: BALSAM PERU/CASTOR OIL 60 GM OINT...G. TP SCH (08:59)
[2021-08-25] MEDS: IRON SUCROSE 100 MG in SODIUM CHLORIDE 0.9% 100 ML 100 ML IV SCH (09:06)
[2021-08-25 18:51] LABS: FREE T4 (FREE THYROXINE) 0.41 ng/dL (0.8-1.8); THYROID STIMULATING HORMONE 48.089 uIU/mL (0.350-4.940)
[2021-08-25] MEDS ORDERED: SODIUM CHLORIDE 0.9% 250ML 250 ML IV ONE (19:30)
[2021-08-25] MEDS: SIMVASTATIN 40 MG TAB PO SCH (22:00)
[2021-08-25] MEDS: TAMSULOSIN HCL 0.4 MG CAP PO SCH (22:00)
[2021-08-25] MEDS: IMMU GLOBULIN GAMMA IV SCH (22:10)
[2021-08-26] VITALS (8 sets, daily range): BP systolic 137–190; BP diastolic 52–70
[2021-08-26] MEDS ORDERED: SODIUM CHLORIDE 0.9% 250ML 250 ML ONE (02:04)
[2021-08-26] MEDS: LEVOTHYROXINE SODIUM 125 MCG TAB PO SCH (05:38)
[2021-08-26 06:29] LABS: BASOPHILS # (AUTO) 0.1 (0.0-0.1); BASOPHILS % 0.6 % (0.0-1.0); EOSINOPHILS # (AUTO) 0.1 (0.0-0.4); EOSINOPHILS % 0.8 % (0.0-6.0); HEMATOCRIT 22.9 % (38.2-49.6); HEMOGLOBIN 7.6 g/dL (14.0-18.0); LYMPHOCYTES % 9.5 % (18.0-39.1); MEAN CORPUSCULAR HEMOGLOBIN 32.9 pg (28-32); MEAN CORPUSCULAR HGB CONC 33.2 g/dL (31-35); MEAN CORPUSCULAR VOLUME 99.1 fL (81-99); MONOCYTES # (AUTO) 0.8 (0.2-0.8); MONOCYTES % 8.1 % (4.4-11.3); NEUTROPHILS # (AUTO) 5.8 (2.1-6.9); NEUTROPHILS % 57.4 % (38.7-80.0); PLATELET COUNT 80 x10e3/uL (140-360); RED BLOOD COUNT 2.31 x10e6/uL (4.3-5.7); RED CELL DISTRIBUTION WIDTH 16.7 % (11.7-14.4)
[2021-08-26 06:41] LABS: ANION GAP 10.6 mmol/L (8-16); CALCIUM 7.6 mg/dL (8.4-10.2); CREATININE, SERUM 1.48 mg/dL (0.72-1.25); POTASSIUM 3.6 mmol/L (3.5-5.1)
[2021-08-26 08:23] LABS: BAND NEUTROPHILS % (MANUAL) 15 %; LYMPHOCYTES % (MANUAL) 7 % (19-48); MONOCYTES % (MANUAL) 3 % (3.4-9.0); NEUTROPHILS % (MANUAL) 75 % (40-74)
[2021-08-26] MEDS: CYANOCOBALAMIN INJ 1,000 MCG/ML VIAL IM SCH (08:59)
[2021-08-26] MEDS: BALSAM PERU/CASTOR OIL 60 GM OINT...G. TP SCH (09:00)
[2021-08-26] MEDS: HYDRALAZINE HCL 25 MG TAB PO SCH ×2 (09:01→16:20)
[2021-08-26] MEDS: CARVEDILOL 12.5 MG TAB PO SCH ×2 (09:01→16:21)
[2021-08-26] MEDS: FINASTERIDE 5 MG TAB PO SCH (09:01)
[2021-08-26] MEDS: IRON SUCROSE 100 MG in SODIUM CHLORIDE 0.9% 100 ML 100 ML IV SCH (09:03)
[2021-08-26] MEDS: IMMU GLOBULIN GAMMA IV SCH (14:13)
[2021-08-26] MEDS: SIMVASTATIN 40 MG TAB PO SCH (21:36)
[2021-08-26] MEDS: TAMSULOSIN HCL 0.4 MG CAP PO SCH (21:36)
[2021-08-27] VITALS (8 sets, daily range): BP systolic 110–196; BP diastolic 58–70
[2021-08-27] MEDS: LEVOTHYROXINE SODIUM 75 MCG TAB PO SCH (05:24)
[2021-08-27 06:05] LABS: BASOPHILS # (AUTO) 0.1 (0.0-0.1); BASOPHILS % 0.7 % (0.0-1.0); EOSINOPHILS % 0.4 % (0.0-6.0); HEMATOCRIT 21.6 % (38.2-49.6); HEMOGLOBIN 7.1 g/dL (14.0-18.0); LYMPHOCYTES # (AUTO) 1.1 (1.0-3.2); LYMPHOCYTES % 12.1 % (18.0-39.1); MEAN CORPUSCULAR HEMOGLOBIN 32.7 pg (28-32); MEAN CORPUSCULAR HGB CONC 32.9 g/dL (31-35); MEAN CORPUSCULAR VOLUME 99.5 fL (81-99); MONOCYTES # (AUTO) 0.7 (0.2-0.8); MONOCYTES % 7.9 % (4.4-11.3); NEUTROPHILS # (AUTO) 5.5 (2.1-6.9); NEUTROPHILS % 60.2 % (38.7-80.0); PLATELET COUNT 63 x10e3/uL (140-360); RED BLOOD COUNT 2.17 x10e6/uL (4.3-5.7)
[2021-08-27 06:40] LABS: ANION GAP 7.4 mmol/L (8-16); CALCIUM 7.6 mg/dL (8.4-10.2); CREATININE, SERUM 1.45 mg/dL (0.72-1.25); POTASSIUM 3.4 mmol/L (3.5-5.1)
[2021-08-27] MEDS: HYDRALAZINE HCL 25 MG TAB PO SCH ×2 (09:00→17:50)
[2021-08-27] MEDS: BALSAM PERU/CASTOR OIL 60 GM OINT...G. TP SCH (09:00)
[2021-08-27] MEDS: IRON-VITAMIN-MINERAL CAPSULE PO SCH ×2 (09:00→17:51)
[2021-08-27] MEDS: CARVEDILOL 12.5 MG TAB PO SCH ×2 (09:00→17:51)
[2021-08-27] MEDS: FINASTERIDE 5 MG TAB PO SCH (09:00)
[2021-08-27 09:01] LABS: BAND NEUTROPHILS % (MANUAL) 2 %; EOSINOPHILS % (MANUAL) 3 % (0-7); LYMPHOCYTES % (MANUAL) 6 % (19-48); METAMYELOCYTES % (MANUAL) 5 % (0-0); MONOCYTES % (MANUAL) 5 % (3.4-9.0); MYELOCYTES % (MANUAL) 4 % (0-0); NEUTROPHILS % (MANUAL) 73 % (40-74); NUCLEATED RED BLOOD CELLS 2
[2021-08-27 09:02] LABS: PLATELET ESTIMATE SLIGHTLY DECREASED; PLATELET MORPHOLOGY COMMENT NORMAL; RBC MORPHOLOGY COMMENT NORMAL
[2021-08-27 14:40] LABS: INR 1.35; PROTHROMBIN TIME 16.9 seconds (11.9-14.5)
[2021-08-27 14:41] LABS: PARTIAL THROMBOPLASTIN TIME 47.4 seconds (23.8-35.5)
[2021-08-27] MEDS ORDERED: FUROSEMIDE INJ 10 MG/ML 4 ML VIAL IV ONE (19:00)
[2021-08-27] MEDS: SIMVASTATIN 40 MG TAB PO SCH (21:31)
[2021-08-27] MEDS: TAMSULOSIN HCL 0.4 MG CAP PO SCH (21:31)
[2021-08-27 23:29] LABS: HEMATOCRIT 24.8 % (38.2-49.6)
[2021-08-28] VITALS (8 sets, daily range): BP systolic 116–200; BP diastolic 51–78
[2021-08-28] MEDS ORDERED: HYDRALAZINE HCL 20 MG/ML VIAL IV PRN (05:30)
[2021-08-28] MEDS: LEVOTHYROXINE SODIUM 75 MCG TAB PO SCH (05:43)
[2021-08-28 06:27] LABS: BASOPHILS # (AUTO) 0.1 (0.0-0.1); BASOPHILS % 0.4 % (0.0-1.0); EOSINOPHILS % 0.3 % (0.0-6.0); HEMOGLOBIN 8.2 g/dL (14.0-18.0); LYMPHOCYTES % 6.5 % (18.0-39.1); MEAN CORPUSCULAR HEMOGLOBIN 32.2 pg (28-32); MEAN CORPUSCULAR HGB CONC 31.5 g/dL (31-35); MONOCYTES # (AUTO) 0.9 (0.2-0.8); MONOCYTES % 5.8 % (4.4-11.3); NEUTROPHILS # (AUTO) 11.4 (2.1-6.9); NEUTROPHILS % 77.2 % (38.7-80.0); PLATELET COUNT 56 x10e3/uL (140-360); RED BLOOD COUNT 2.55 x10e6/uL (4.3-5.7); RED CELL DISTRIBUTION WIDTH 16.9 % (11.7-14.4)
[2021-08-28 06:46] LABS: ANION GAP 10.4 mmol/L (8-16); CALCIUM 7.6 mg/dL (8.4-10.2); CREATININE, SERUM 1.38 mg/dL (0.72-1.25); POTASSIUM 3.4 mmol/L (3.5-5.1)
[2021-08-28] MEDS: FUROSEMIDE INJ 10 MG/ML 4 ML VIAL IV SCH ×2 (08:58→23:32)
[2021-08-28] MEDS: HYDRALAZINE HCL 25 MG TAB PO SCH ×2 (08:59→16:25)
[2021-08-28] MEDS: BALSAM PERU/CASTOR OIL 60 GM OINT...G. TP SCH (08:59)
[2021-08-28] MEDS: FINASTERIDE 5 MG TAB PO SCH (08:59)
[2021-08-28] MEDS: IRON-VITAMIN-MINERAL CAPSULE PO SCH ×2 (08:59→16:25)
[2021-08-28] MEDS: CARVEDILOL 12.5 MG TAB PO SCH ×2 (08:59→16:25)
[2021-08-28 11:26] LABS: INR 1.35; PROTHROMBIN TIME 16.9 seconds (11.9-14.5)
[2021-08-28 11:27] LABS: PARTIAL THROMBOPLASTIN TIME 50.9 seconds (23.8-35.5)
[2021-08-28] MEDS: TAMSULOSIN HCL 0.4 MG CAP PO SCH (23:32)
[2021-08-28] MEDS: SIMVASTATIN 40 MG TAB PO SCH (23:33)
[2021-08-29 04:54] VITALS: BP 155/57
[2021-08-29 05:02] LABS: BASOPHILS # (AUTO) 0.1 (0.0-0.1); BASOPHILS % 0.5 % (0.0-1.0); EOSINOPHILS % 0.4 % (0.0-6.0); HEMATOCRIT 23.5 % (38.2-49.6); HEMOGLOBIN 7.6 g/dL (14.0-18.0); LYMPHOCYTES % 10.4 % (18.0-39.1); MEAN CORPUSCULAR HEMOGLOBIN 32.9 pg (28-32); MEAN CORPUSCULAR HGB CONC 32.3 g/dL (31-35); MEAN CORPUSCULAR VOLUME 101.7 fL (81-99); MONOCYTES # (AUTO) 0.7 (0.2-0.8); MONOCYTES % 7.2 % (4.4-11.3); NEUTROPHILS # (AUTO) 7.2 (2.1-6.9); PLATELET COUNT 51 x10e3/uL (140-360); RED BLOOD COUNT 2.31 x10e6/uL (4.3-5.7); RED CELL DISTRIBUTION WIDTH 16.9 % (11.7-14.4)
[2021-08-29 05:27] LABS: ALBUMIN 2.3 g/dL (3.5-5.0); ALBUMIN/GLOBULIN RATIO 0.6 (0.8-2.0); ANION GAP 8.3 mmol/L (8-16); CALCIUM 7.6 mg/dL (8.4-10.2); CREATININE, SERUM 1.45 mg/dL (0.72-1.25); POTASSIUM 3.3 mmol/L (3.5-5.1)
[2021-08-29] MEDS: LEVOTHYROXINE SODIUM 75 MCG TAB PO SCH (07:30)
[2021-08-29 07:48] VITALS: BP 151/60
[2021-08-29 08:41] VITALS: BP 151/60
[2021-08-29] MEDS: FUROSEMIDE INJ 10 MG/ML 4 ML VIAL IV SCH ×2 (08:58→20:48)
[2021-08-29] MEDS: HYDRALAZINE HCL 25 MG TAB PO SCH ×2 (10:37→17:00)
[2021-08-29] MEDS: CARVEDILOL 12.5 MG TAB PO SCH ×2 (10:37→17:00)
[2021-08-29] MEDS: FINASTERIDE 5 MG TAB PO SCH (10:37)
[2021-08-29] MEDS: BALSAM PERU/CASTOR OIL 60 GM OINT...G. TP SCH (10:37)
[2021-08-29] MEDS: IRON-VITAMIN-MINERAL CAPSULE PO SCH ×2 (10:37→17:00)
[2021-08-29] MEDS ORDERED: SODIUM CHLORIDE 0.9% IV SCH (11:00)
[2021-08-29] MEDS ORDERED: ARGATROBAN IV SCH (11:00)
[2021-08-29 12:15] VITALS: BP 149/77
[2021-08-29 16:39] VITALS: BP 152/60
[2021-08-29 20:07] VITALS: BP 166/53
[2021-08-29] MEDS: SIMVASTATIN 40 MG TAB PO SCH (20:48)
[2021-08-29] MEDS: TAMSULOSIN HCL 0.4 MG CAP PO SCH (20:48)
[2021-08-30] VITALS (9 sets, daily range): BP systolic 152–179; BP diastolic 49–67
[2021-08-30 05:26] LABS: BASOPHILS # (AUTO) 0.1 (0.0-0.1); BASOPHILS % 0.7 % (0.0-1.0); EOSINOPHILS % 0.5 % (0.0-6.0); HEMATOCRIT 23.8 % (38.2-49.6); HEMOGLOBIN 7.6 g/dL (14.0-18.0); LYMPHOCYTES # (AUTO) 0.9 (1.0-3.2); LYMPHOCYTES % 10.8 % (18.0-39.1); MEAN CORPUSCULAR HEMOGLOBIN 32.5 pg (28-32); MEAN CORPUSCULAR HGB CONC 31.9 g/dL (31-35); MEAN CORPUSCULAR VOLUME 101.7 fL (81-99); MONOCYTES # (AUTO) 0.7 (0.2-0.8); MONOCYTES % 7.8 % (4.4-11.3); NEUTROPHILS # (AUTO) 6.3 (2.1-6.9); NEUTROPHILS % 72.1 % (38.7-80.0); PLATELET COUNT 66 x10e3/uL (140-360); RED BLOOD COUNT 2.34 x10e6/uL (4.3-5.7); RED CELL DISTRIBUTION WIDTH 17.2 % (11.7-14.4)
[2021-08-30] MEDS: LEVOTHYROXINE SODIUM 75 MCG TAB PO SCH (06:16)
[2021-08-30] MEDS: APIXABAN 5 MG TABLET PO SCH ×2 (11:30→17:47)
[2021-08-30] MEDS: FUROSEMIDE INJ 10 MG/ML 4 ML VIAL IV SCH ×2 (11:30→20:59)
[2021-08-30] MEDS: BALSAM PERU/CASTOR OIL 60 GM OINT...G. TP SCH (11:31)
[2021-08-30] MEDS: FINASTERIDE 5 MG TAB PO SCH (11:32)
[2021-08-30] MEDS: HYDRALAZINE HCL 25 MG TAB PO SCH ×2 (13:00→16:39)
[2021-08-30] MEDS: IRON-VITAMIN-MINERAL CAPSULE PO SCH ×2 (13:01→16:39)
[2021-08-30] MEDS: CARVEDILOL 12.5 MG TAB PO SCH ×2 (13:01→16:39)
[2021-08-30] MEDS ORDERED: VENELEX OINTMEN60 GM TP (14:52)
[2021-08-30] MEDS ORDERED: SYNTHROID75 MCG PO (14:52)
[2021-08-30] MEDS ORDERED: ELIQUIS5 MG PO (14:52)
[2021-08-30] MEDS ORDERED: COREG12.5 MG PO (14:52)
[2021-08-30] MEDS ORDERED: PROTONIX IV40 MG PO (14:52)
[2021-08-30] MEDS ORDERED: CARBINOXAMINE PO (14:52)
[2021-08-30] MEDS ORDERED: LASIX40 MG PO (15:01)
[2021-08-30] MEDS: TAMSULOSIN HCL 0.4 MG CAP PO SCH (20:59)
[2021-08-30] MEDS: SIMVASTATIN 40 MG TAB PO SCH (20:59)
[2021-08-31] VITALS (7 sets, daily range): BP systolic 129–162; BP diastolic 43–74
[2021-08-31] MEDS: LEVOTHYROXINE SODIUM 75 MCG TAB PO SCH (06:30)
[2021-08-31 07:09] LABS: BASOPHILS # (AUTO) 0.1 (0.0-0.1); BASOPHILS % 0.8 % (0.0-1.0); EOSINOPHILS % 0.5 % (0.0-6.0); HEMATOCRIT 23.6 % (38.2-49.6); HEMOGLOBIN 7.4 g/dL (14.0-18.0); LYMPHOCYTES # (AUTO) 0.9 (1.0-3.2); LYMPHOCYTES % 12.5 % (18.0-39.1); MEAN CORPUSCULAR HEMOGLOBIN 32.3 pg (28-32); MEAN CORPUSCULAR HGB CONC 31.4 g/dL (31-35); MEAN CORPUSCULAR VOLUME 103.1 fL (81-99); MONOCYTES # (AUTO) 0.7 (0.2-0.8); MONOCYTES % 9.6 % (4.4-11.3); NEUTROPHILS # (AUTO) 5.3 (2.1-6.9); NEUTROPHILS % 70.6 % (38.7-80.0); PLATELET COUNT 75 x10e3/uL (140-360); RED BLOOD COUNT 2.29 x10e6/uL (4.3-5.7); RED CELL DISTRIBUTION WIDTH 17.4 % (11.7-14.4)
[2021-08-31] MEDS: FUROSEMIDE INJ 10 MG/ML 4 ML VIAL IV SCH (09:17)
[2021-08-31] MEDS: HYDRALAZINE HCL 25 MG TAB PO SCH ×2 (09:17→16:51)
[2021-08-31] MEDS: BALSAM PERU/CASTOR OIL 60 GM OINT...G. TP SCH (09:18)
[2021-08-31] MEDS: FINASTERIDE 5 MG TAB PO SCH (09:18)
[2021-08-31] MEDS: CARVEDILOL 12.5 MG TAB PO SCH ×2 (09:18→16:51)
[2021-08-31] MEDS: APIXABAN 5 MG TABLET PO SCH ×2 (09:18→16:51)
[2021-08-31] MEDS: IRON-VITAMIN-MINERAL CAPSULE PO SCH ×2 (09:18→16:51)
[2021-08-31] MEDS ORDERED: PANTOPRAZOLE SOD 40 MG TABEC PO SCH (21:00)
== END 2021-08-31 20:00 | DRG 871 ==
LOC: FSED 18:55 → ERHOLD 20:44 → MED/SURG2 22:08
PROVIDERS: ADMIT Internal Medicine; ATTEND Internal Medicine
PROC: 009U3ZX Drainage of Spinal Canal, Percutaneous Approach, Diagnostic (ICD-10-PCS; principal; 2021-08-16)
PROC: 30243N1 Transfusion of Nonautologous Red Blood Cells into Central Vein, Percutaneous Approach (ICD-10-PCS; 2021-08-22)
PROC: 02HV33Z Insertion of Infusion Device into Superior Vena Cava, Percutaneous Approach (ICD-10-PCS; 2021-08-25)
DX: A41.9 Sepsis, unspecified organism (principal); G93.41 Metabolic encephalopathy; K92.2 Gastrointestinal hemorrhage, unspecified; C34.90 Malignant neoplasm of unspecified part of unspecified bronchus or lung; I50.22 Chronic systolic (congestive) heart failure; N17.9 Acute kidney failure, unspecified; I13.0 Hypertensive heart and chronic kidney disease with heart failure and stage 1 through stage 4 chronic kidney disease, or unspecified chronic kidney disease; N18.4 Chronic kidney disease, stage 4 (severe); E03.9 Hypothyroidism, unspecified; R65.20 Severe sepsis without septic shock; D70.8 Other neutropenia; T45.1X5A Adverse effect of antineoplastic and immunosuppressive drugs, initial encounter; N40.0 Benign prostatic hyperplasia without lower urinary tract symptoms; R56.9 Unspecified convulsions; G47.33 Obstructive sleep apnea (adult) (pediatric); Z66 Do not resuscitate; E11.22 Type 2 diabetes mellitus with diabetic chronic kidney disease; Z79.899 Other long term (current) drug therapy; Z74.09 Other reduced mobility; K59.00 Constipation, unspecified; D63.8 Anemia in other chronic diseases classified elsewhere; E66.9 Obesity, unspecified; Z68.33 Body mass index [BMI] 33.0-33.9, adult; T17.990A Other foreign object in respiratory tract, part unspecified in causing asphyxiation, initial encounter; D69.59 Other secondary thrombocytopenia; Z20.822 Contact with and (suspected) exposure to COVID-19; Z86.73 Personal history of transient ischemic attack (TIA), and cerebral infarction without residual deficits; I48.0 Paroxysmal atrial fibrillation; Z51.5 Encounter for palliative care
CPT/HCPCS: 36415; 62328; 70450; 70496; 70498; 71045; 71250; 74018; 74176; 74470; 80048; 80053; 80076; 81001; 82105; 82140; 82550; 82553; 82607; 82728; 82746; 82945; 82948; 83036; 83540; 83605; 83735; 83880; 84132; 84134; 84146; 84157; 84436; 84439; 84443; 84466; 84479; 84484; 85014; 85018; 85025; 85045; 85379; 85384; 85610; 85730; 86022; 86376; 86850; 86900; 86920; 87040; 87070; 87086; 87205; 87529; 88112; 89051; 93005; 93970; 95812; 96360; 96361; 97139; 99251; 99284; J0360; J0692; J0696; J1442; J1561; J1650; J1756; J1940; J1956; J2001; J3370; J3420; J7030; J7050; P9016; Q9967; U0002